=== PATIENT | male | born 1980 | race Caucasian/White ===

== ENCOUNTER → 2016-08-19 | Outpatient (CLI) | payer MEDICAID ==
[~2016-08-19] MED LIST: ACET1TAB12; ACHYD1T PO; ALBU8.5H2 IH; ALPR.25T PO; ALPR.5T PO; ALPR1TAB2 PO; ALPR1TAB7 PO; AMIT10TA6 PO; AMIT25TA9 PO; CARB/LEVO PO; CEFP500T4 PO; CEPH500C PO; CLIN300C3; CLIN300C3 PO; CPR500T PO; DEXL60CA PO; DEXL60CA5 PO; DICL100G13 TOP; DICL100G18 TOP; DOXY100C2 PO; FLUT12AE4 IH; GABA-486 PO; GABA-488 PO; GBPN300C PO; HYDR-2890 PO; HYDR-34 PO; HYDR-3720 PO; IBP800T PO; IPRA4AER IH; LACT1CAP62 PO; LEVO500T69 PO; LEVO750T9 PO; LINE600T5 PO; LVF500T GT; METR500T PO; MPR22T TP; MTR500T PO; NAPR-243 PO; NF-CIPDEC OT; NF-CIPDEC PO; OMEP20CA12 PO; ONDA8TAB9 PO; ONDAN4ODT PO; OXC5T PO; OXYC-465 PO; OXYC1TAB PO; OXYC20TA63 PO; OXYC30TA76 PO; OXYC40TA46 PO; OXYC60TA7 PO; PANT40TA2 PO; PANT40TA3 PO; PHEN100T26 PO; PHEN200T27 PO; PRD10T PO; PRD20T PO; PRM25T PO; PROM25SU10 PR; RIZA5TAB15; SULF-222 PO; SULF1TAB35 PO; TEST75GE7 TOP; TEST75GE7 TP; TMSL.4C PO; TRM50T PO; VANC1PLA9 IV; ZLP10T; ZLP10T PO; ZLP5T PO; ZOLP10TA PO; ZOLP10TA5 PO; [UNRECOGNIZED DRUG - OTHER]
== END ==
LOC: LAB 10:11
PROVIDERS: ATTEND Nurse Practitioner
DX: K85.90 Acute pancreatitis without necrosis or infection, unspecified (principal)
CPT/HCPCS: 36415; 83690

== ENCOUNTER 2016-10-23 17:42 | Emergency (ER) | payer MEDICAID ==
[~2016-10-23] VITALS: Ht 182.9 cm; Wt 68.1 kg
[2016-10-23] MEDS ORDERED: NYST1000 PO (19:29)
[2016-10-23] MEDS ORDERED: CHLO473M MM (19:29)
--- NOTE | 2016-10-23 19:33 | ED EENT ---
History of Present Illness General Chief Complaint: Dental Problems/Pain Stated Complaint: TOOTH INFECTION Nursing Triage Note: STAFF REPORTS PT HAS DENTAL PAIN THAT HAS BEEN TREATED FOR A COUPLE OF WEEKS BY A DENTIST. HE REPORTEDLY HAD TAKEN CLINDAMYCIN X 2 WEEKS, AND HAS BEEN TAKING KEFLEX SINCE WEDNESDAY WITH NO IMPROVEMENT. PT HAS PAIN MEDICATION AT HOME, IS JUST CONCERNED THAT ABX IS NOT WORKING. PT IS AFEBRILE AT THIS TIME. Source: patient, caregiver History of Present Illness Time seen by provider: 18:52 Allergies and Home Medications Allergies Coded Allergies: Penicillins (Verified Allergy, Mild, 09/06/15) azithromycin (Verified Allergy, Mild, 06/05/09) quetiapine fumarate (Verified Allergy, Unknown, 09/06/15) Home Medications Albuterol/Ipratropium 4 Gm Aero, 1 PUFF IH QID PRN for SHORTNESS OF BREATH, ( Reported) Alprazolam 1 Mg Tablet, 1 MG PO TID, (Reported) Amitriptyline HCl 25 Mg Tablet, 50 MG PO HS, (Reported) TAKES 2 (25MG) TABLETS Dexlansoprazole 60 Mg mp, 60 MG PO HS, (Reported) Fluticasone/Salmeterol 12 Gm Hfa.aer.ad, 1 PUFF IH BID PRN for SHORTNESS OF BREATH, (Reported) Gabapentin 300 Mg Capsule, 300 MG PO QID, (Reported) Linezolid 600 Mg Tablet, 600 MG PO Q12H, #20 Prescribed by: CINTHIA HOLLIS on 02/26/16 0914 Oxycodone HCl 60 Mg Tab.er.12h, 60 MG PO Q12H, (Reported) Oxycodone HCl/Acetaminophen 1 Each Tablet, 1 TAB PO TID PRN for BREAKTHROUGH PAIN, (Reported) Testosterone 75 Gm Gel.care manager, 4 APPLIC TOP DAILY, (Reported) 4 pumps Vancomycin/0.9 % Sod Chloride 1 Gm/250 Ml Plast..bag, 1 GM IV Q12H for 10 Days Prescribed by: CINTHIA HOLLIS on 02/27/16 1053 Zolpidem Tartrate 10 Mg Tablet, 10 MG PO HS, (Reported) Past Wwzvbaz-Nijnfb-Aseofn Hx Patient Social History Alcohol Use: Denies Use Recreational Drug Use: No Smoking Status: Never a Smoker Former Smoker/When Quit: Aug 16, 2011 2nd Hand Smoke Exposure: No Recent Foreign Travel: No Contact w/Someone Who Travel: No Recent Infectious Disease Expo: No Recent Hopitalizations: No Immunizations Up To Date Tetanus Booster (TDap): Unknown PED Vaccines UTD: Yes Date of Pneumonia Vaccine: May 17, 2009 Date of Influenza Vaccine: Jul 11, 2014 Seasonal Allergies Seasonal Allergies: No Surgeries HX Surgeries: Yes (EGD WITH DILATION, PEG TUBE, FROZEN SHOULDER) Surgeries: Abdominal, Orthopedic Respiratory Hx Respiratory Disorders: Yes (BRONCHITIS/PNEUMONIA) Respiratory Disorders: Pneumonia Cardiovascular Hx Cardiac Disorders: No Neurological Hx Neurological Disorders: Yes (TARDIVE DYSKINESIA. UNDIAGNOSED NEUROLOGICAL PROBLEM--SEEN BY [facility]) Reproductive System Hx Reproductive Disorders: No Sexually Transmitted Disease: No Genitourinary Hx Genitourinary Disorders: Yes Genitourinary Disorders: Kidney Stones Gastrointestinal Hx Gastrointestinal Disorders: Yes (ESOPHAGEAL STRICTURES-S/P DILATIONS, PEG TUGE LAST Wednesday09/06/15 ) Gastrointestinal Disorders: Gastroesophageal Reflux, Hiatal Hernia Musculoskeletal Hx Musculoskeletal Disorders: Yes (RIGHT SHOULDER FROZEN; CHRONIC PAIN ) Musculoskeletal Disorders: Degenerate Disk Disease, Chronic Back Pain Endocrine Hx Endocrine Disorders: No HEENT HX ENT Disorders: No Cancer Hx Cancer: No Psychosocial Hx Psychiatric Problems: Yes Behavioral Health Disorders: Depression Integumentary HX Skin/Integumentary Disorder: No Blood Transfusions Hx Blood Disorders: No Family Medical History Significant Family History: No Pertinent Family Hx Family Medial History: Dysphagia 19 MOTHER Family history: Arthritis 19 MOTHER Family history: Diabetes mellitus 19 FATHER Family history: Thyroid disorder 19 MOTHER Physical Exam Vital Signs Vital Sign - Last 12Hours 10/23/16 19:15 Temp 98.4 Pulse 110 Resp 20 B/P (MAP) 94/82 Pulse Ox 96 O2 Delivery Room Air Date of ETT Placement: Feb 22, 2016 Time of ETT Placement: 52 Progress/Results/Core Measures Results/Orders Vital Signs/I&O Vital Sign - Last 12Hours 10/23/16 19:15 Temp 98.4 Pulse 110 Resp 20 B/P (MAP) 94/82 Pulse Ox 96 O2 Delivery Room Air Blood Pressure Mean: 86 Departure Impression Impression: Primary Impression: Thrush Additional Impressions: Dental decay Gingivitis Disposition: 01 HOME, SELF-CARE Condition: Stable Departure-Patient Inst. Decision time for Depature: 19:25 Referrals: LADARIUS MELGOZA MD (PCP/Family) Primary Care Physician PHYLLIS PATTERSON DDSonny Patient Instructions: Dental Pain (DC), Thrush Add. Discharge Instructions: Follow-up with a dentist or oral surgeon as soon as possible for extraction. Until then continue with antibiotics. As long as you are on antibiotics, continue with nystatin swish and swallow. Follow the oral care routine as outlined below. 1. [place] teeth gently twice daily with a soft bristle toothbrush. 2. After brushing teeth, place a small quantity of chlorhexidine mouthwash on the toothbrush or in the mouth and work around the teeth for further antiseptic cleansing. You may also switch the chlorhexidine around the mouth. Spit and rinse after using the chlorhexidine mouthwash. 3. Swish nystatin around the mouth for 30-60 seconds, then swallow. If you cannot swish thoroughly, you may use a toothbrush to paint the teeth, tongue, and cheeks with the nystatin. Follow this routine twice daily. Give 2 additional doses of the nystatin between brushings for a total of 4 nystatin doses each day. Return to care if symptoms worsen. All discharge instructions reviewed with patient and/or family. Voiced understanding. Scripts Chlorhexidine Gluconate (Chlorhexidine Gluconate) 473 Ml Mouthwash 5 ML MM BID, #1 EA Prov: WARREN ARCOS MD 10/23/16 Nystatin (Nystatin) 100,000 Unit/1 Ml Oral.susp 5 ML PO QID, #200 ML 2 Refills Prov: WARREN ARCOS MD 10/23/16 WARREN ARCOS MD Oct 23, 2016 19:33
[2016-10-23 19:44] VITALS: BP 94/82
== END 2016-10-23 19:44 | disposition home or self-care (01) ==
LOC: EDUNIT# 17:42 → ER 17:47
DX: B37.9 Candidiasis, unspecified (principal); K02.9 Dental caries, unspecified; K05.10 Chronic gingivitis, plaque induced
CPT/HCPCS: 99282

== ENCOUNTER 2016-12-15 11:29 | Outpatient (RCR) | payer MEDICAID ==
[~2016-12-15 11:29] MED LIST changes: +CHLO473M MM; +NYST1000 PO
== END 2016-12-16 | disposition home or self-care (01) ==
PROVIDERS: ATTEND Family Medicine
DX: R47.02 Dysphasia (principal); R47.1 Dysarthria and anarthria; G81.91 Hemiplegia, unspecified affecting right dominant side

== ENCOUNTER 2017-01-17 20:29 | Emergency (ER) | payer MEDICAID ==
[~2017-01-17] VITALS: Ht 182.9 cm; Wt 68.1 kg
[2017-01-17] MEDS ORDERED: KETOROLAC 30 MG/ML VIAL IVP ONE (21:15)
[2017-01-17] MEDS ORDERED: LACTATED RINGERS 1,000 ML IV ONE (21:15)
--- NOTE | 2017-01-17 21:18 | ED Abdominal Pain ---
General Chief Complaint: Abdominal/GI Problems Stated Complaint: R SIDE PAIN Nursing Triage Note: to ER with caregiver with reports of abdominal pain. Caregiver reports history of pancreas problems and is s/p cholecystectomy. Sepsis Screen: No Definite Risk Source of Information: Caregiver Exam Limitations: Other (PT IS ESSENTIALLY NON-VERBAL) History of Present Illness Time Seen By Provider: 21:00 Initial Comments PT ARRIVES VIA POV WITH FURNITURE MOVER ( PT HAS 21 HOURS/DAY FURNITURE MOVER, BUT THIS FURNITURE MOVER HAS ONLY BEEN WITH HIM SINCE AUGUST OR SEPTEMBER OF THIS YEAR) PT HAS HAD RIGHT SIDED ABDOMINAL PAIN ALL WEEK HAD SUBJECTIVE FEVER ON Wednesday01/13/17 HAS NOT BEEN EATING OR DRINKING HAS HAD DECREASED URINE OUTPUT AND URINE HAS BEEN VERY DARK NO VOMITING OR DIARRHEA LAST BM A FEW DAYS AGO. HAS NOT HAD ANY MEDICATION FOR CONSTIPATION AND TAKES NARCOTICS DAILY. HAS BEEN SLEEPING ALL THE TIME, ALL WEEK NO KNOWN SICK CONTACTS HAD OPEN CHOLECYSTECTOMY EARLIER IN THE YEAR IN [place] AND HAD PANCREATITIS WITH IT. PCP: MEEK LANIER Allergies and Home Medications Allergies Coded Allergies: Penicillins (Verified Allergy, Mild, 09/06/15) azithromycin (Verified Allergy, Mild, 06/05/09) quetiapine fumarate (Verified Allergy, Unknown, 09/06/15) Home Medications Alprazolam 1 Mg Tablet, 1 MG PO QID, (Reported) Amitriptyline HCl 25 Mg Tablet, 25 MG PO BID, (Reported) Dexlansoprazole 60 Mg Cap.mp, 60 MG PO HS, (Reported) Duloxetine HCl 60 Mg Capsule., 60 MG PO DAILY, (Reported) Fluticasone/Salmeterol 12 Gm Hfa.aer.ad, 1 PUFF IH BID PRN for SHORTNESS OF BREATH, (Reported) Gabapentin 300 Mg Capsule, 300 MG PO QID, (Reported) Oxycodone HCl 60 Mg Tab.er.12h, 60 MG PO Q12H, (Reported) Oxycodone HCl/Acetaminophen 1 Each Tablet, 1 TAB PO TID PRN for BREAKTHROUGH PAIN, (Reported) Pantoprazole Sodium 40 Mg Tablet., 40 MG PO DAILY, (Reported) Review of Systems Constitutional: see HPI, fever, malaise, other (VERY LIMITED ) Respiratory: Cough (CHRONIC/STABLE COUGH) Cardiovascular: No Symptoms Reported Gastrointestinal: See HPI, Abdominal Pain, Denies Diarrhea, Poor Appetite, Poor Fluid Intake, Denies Vomiting Genitourinary: See HPI Past Qxodprg-Cnwiji-Rwqoik Hx Patient Social History Alcohol Use: Denies Use Recreational Drug Use: No Smoking Status: Never a Smoker 2nd Hand Smoke Exposure: No Recent Foreign Travel: No Contact w/Someone Who Travel: No Recent Infectious Disease Expo: No Recent Hopitalizations: No Physical Abuse: No Sexual Abuse: No Mistreated: No Fear: No Immunizations Up To Date Tetanus Booster (TDap): Unknown PED Vaccines UTD: Yes Date of Pneumonia Vaccine: May 17, 2009 Date of Influenza Vaccine: Jul 11, 2014 Seasonal Allergies Seasonal Allergies: No Surgeries History of Surgeries: Yes (EGD WITH DILATION, PEG TUBE/ REMOVED, FROZEN SHOULDER; KIDNEY STONE REMOVAL) Surgeries: Abdominal, Gallbladder, Orthopedic, Renal Respiratory History of Respiratory Disorde: Yes (BRONCHITIS/PNEUMONIA; CHRONIC COUGH) Respiratory Disorders: Pneumonia Currently Using CPAP: No Currently Using BIPAP: No Cardiovascular History of Cardiac Disorders: No Neurological History of Neurological Disord: Yes (TARDIVE DYSKINESIA. UNDIAGNOSED PROGRESSIVE/DEGENERATIVE NEUROLOGICAL PROBLEM--SEEN BY NEUROLOGY, MULTIPLE OTHER NEUROLOGISTS, BUT HAS NOT BEEN FOLLOWED BY NEUROLOGY FOR YEARS. NON- VERBAL AND NON-AMBULATORY. ) Reproductive System Hx Reproductive Disorders: No Sexually Transmitted Disease: No Genitourinary History of Genitourinary Disor: Yes Genitourinary Disorders: Kidney Stones Gastrointestinal History of Gastrointestinal Di: Yes (ESOPHAGEAL STRICTURES-S/P DILATIONS, PEG TUGE 09/06/15--NOW REMOVED OF 01/17/17 ) Gastrointestinal Disorders: Gastroesophageal Reflux, Hiatal Hernia, Gall Bladder Disease Musculoskeletal History of Musculoskeletal Dis: Yes (RIGHT SHOULDER FROZEN; CHRONIC PAIN ) Musculoskeletal Disorders: Degenerate Disk Disease, Chronic Back Pain Endocrine History of Endocrine Disorders: No HEENT History of HEENT Disorders: Yes (POOR DENTITION) Cancer History of Cancer: No Psychosocial History of Psychiatric Problem: Yes Behavioral Health Disorders: Depression Suicide Risk Score: 0 Integumentary History of Skin or Integumenta: No Blood Transfusions History of Blood Disorders: No Family Medical History Family Medial History: Dysphagia 19 MOTHER Family history: Arthritis 19 MOTHER Family history: Diabetes mellitus 19 FATHER Family history: Thyroid disorder 19 MOTHER Physical Exam Vital Signs VS - Last 72 Hours, by Label 01/17/17 01/17/17 01/17/17 20:40 21:35 23:20 Temp 98.3 98.3 98.3 Pulse 94 81 Resp 18 18 B/P (MAP) 126/92 Pulse Ox 98 99 O2 Delivery Room Air Capillary Refill : Less Than 3 Seconds General Appearance: no apparent distress, thin, other (OCCASIONAL DRY, UPPER AIRWAY COUGH; SITTING PARTIALLY UPRIGHT WITH KNEES AND HIPS FLEXED AND RIGHT HAND ON RIGHT ABDOMEN. NO FACIAL EXPRESSION, BUT DOES TRACK WITH EYES, ALTHOUGH SLOWLY. ) HEENT: other (VERY POOR DENTITION, EXTENSIVE DECAY AND MULTIPLE MISSING TEETH) Respiratory: normal breath sounds, no respiratory distress, no accessory muscle use Cardiovascular: regular rate, rhythm, no murmur Gastrointestinal: soft, tenderness (DIFFUSE RIGHT SIDED TENDERNESS. ) Extremities: no pedal edema Back: no CVA tenderness Neurologic/Psychiatric: other (FINE TREMOR OF ARMS / HANDS AND LEGS/ FEET-- GREATER ON RIGHT. CONTRACTURE OF RIGHT HAND. NEURO AT BASELINE--PT IS NON-VERBAL , UNABLE TO FOLLOW COMMANDS. BUT HAS GROSS MOVEMENT OF ALL EXTREMITIES. ) Skin: normal color, warm/dry, tattoos/piercings (MULTIPLE TATTOOS) Focused Exam Evaluation Lactate Level Laboratory Tests 01/17/17 21:20: Lactic Acid Level 0.67 Lactic Acid Level Laboratory Tests Test 01/17/17 21:20 Lactic Acid Level 0.67 MMOL/L (0.50-2.00) Date of ETT Placement: Feb 22, 2016 Time of ETT Placement: 52 Progress/Results/Core Measures Results/Orders Lab Results Laboratory Tests Test 01/17/17 21:20 01/17/17 21:38 Range/Units White Blood Count 5.8 4.3-11.0 10^3/uL Red Blood Count 4.88 4.35-5.85 10^6/uL Hemoglobin 13.8 13.3-17.7 G/DL Hematocrit 42 40-54 % Mean Corpuscular Volume 86 80-99 FL Mean Corpuscular Hemoglobin 28 25-34 PG Mean Corpuscular Hemoglobin Concent 33 32-36 G/DL Red Cell Distribution Width 14.9 H 10.0-14.5 % Platelet Count 285 130-400 10^3/uL Mean Platelet Volume 10.0 7.4-10.4 FL Neutrophils (%) (Auto) 62 42-75 % Lymphocytes (%) (Auto) 24 12-44 % Monocytes (%) (Auto) 8 0-12 % Eosinophils (%) (Auto) 6 0-10 % Basophils (%) (Auto) 1 0-10 % Neutrophils # (Auto) 3.6 1.8-7.8 X 10^3 Lymphocytes # (Auto) 1.4 1.0-4.0 X 10^3 Monocytes # (Auto) 0.5 0.0-1.0 X 10^3 Eosinophils # (Auto) 0.3 0.0-0.3 10^3/uL Basophils # (Auto) 0.1 0.0-0.1 10^3/uL Prothrombin Time 13.6 12.2-14.7 SEC INR Comment 1.0 0.8-1.4 Activated Partial Thromboplast Time 30 24-35 SEC Sodium Level 138 135-145 MMOL/L Potassium Level 4.1 3.6-5.0 MMOL/L Chloride Level 104 98-107 MMOL/L Carbon Dioxide Level 24 21-32 MMOL/L Anion Gap 10 5-14 MMOL/L Blood Urea Nitrogen 8 7-18 MG/DL Creatinine 0.82 0.60-1.30 MG/DL Estimat Glomerular Filtration Rate > 60 BUN/Creatinine Ratio 10 Glucose Level 75 70-105 MG/DL Lactic Acid Level 0.67 0.50-2.00 MMOL/L Calcium Level 9.2 8.5-10.1 MG/DL Magnesium Level 2.2 1.8-2.4 MG/DL Total Bilirubin 1.1 H 0.1-1.0 MG/DL Aspartate Amino Transf (AST/SGOT) 25 5-34 U/L Alanine Aminotransferase (ALT/SGPT) 17 0-55 U/L Alkaline Phosphatase 74 40-136 U/L Total Protein 8.4 H 6.4-8.2 GM/DL Albumin 4.0 3.2-4.5 GM/DL Amylase Level 31 25-125 U/L Lipase 31 8-78 U/L Urine Color YELLOW Urine Clarity CLEAR Urine pH 7 5-9 Urine Specific [place] 1.005 L 1.016-1.022 Urine Protein NEGATIVE NEGATIVE Urine Glucose (UA) NEGATIVE NEGATIVE Urine Ketones NEGATIVE NEGATIVE Urine Nitrite NEGATIVE NEGATIVE Urine Bilirubin NEGATIVE NEGATIVE Urine Urobilinogen 1 NORMAL MG/DL Urine Leukocyte Esterase NEGATIVE NEGATIVE Urine RBC (Auto) NEGATIVE NEGATIVE Urine RBC NONE /HPF Urine WBC NONE /HPF Urine Crystals NONE /LPF Urine Bacteria NONE /HPF Urine Casts NONE /LPF Urine Mucus TRACE /LPF Urine Culture Indicated NO My Orders Orders - JADA RIVERA DO Saline Lock/Iv-Start (01/17/17 21:15) Ct Abd/Pelv W (Appendicitis) (01/17/17 21:15) Amylase (01/17/17 21:15) Cbc With Automated Diff (01/17/17 21:15) Comprehensive Metabolic Panel (01/17/17 21:15) Lactic Acid Analyzer (01/17/17 21:15) Magnesium (01/17/17 21:15) Protime With Inr (01/17/17 21:15) Partial Thromboplastin Time (01/17/17 21:15) Ua Culture If Indicated (01/17/17 21:15) Blood Culture (01/17/17 21:15) Saline Lock/Iv-Start (01/17/17 21:15) Lactated Ringers (Lr 1000 Ml Iv Solution (01/17/17 21:15) Ketorolac Injection (Toradol Injection) (01/17/17 21:15) Iohexol Injection (Omnipaque 350 Mg/Ml 1 (01/17/17 22:15) Ns (Ivpb) (Sodium Chloride 0.9% Ivpb Bag (01/17/17 22:15) Lipase (01/17/17 22:16) Medications Given in ED Current Medications Medications Dose Ordered Sig/Carter Route Start Time Stop Time Status Last Admin Dose Admin Iohexol 100 ml ONCE ONCE IV 01/17/17 22:15 01/17/17 22:16 DC 01/17/17 22:11 100 ML Ketorolac Tromethamine 30 mg ONCE ONCE IVP 01/17/17 21:15 01/17/17 21:17 DC 01/17/17 21:35 30 MG Lactated Ringer's 1,000 ml @ 0 mls/hr Q0M ONCE IV 01/17/17 21:15 01/17/17 21:17 DC 01/17/17 21:35 0 MLS/HR Sodium Chloride 100 ml ONCE ONCE IV 01/17/17 22:15 01/17/17 22:16 DC 01/17/17 22:12 80 ML Vital Signs/I&O Vital Sign - Last 12Hours 01/17/17 01/17/17 01/17/17 20:40 21:35 23:20 Temp 98.3 98.3 98.3 Pulse 94 81 Resp 18 18 B/P (MAP) 126/92 Pulse Ox 98 99 O2 Delivery Room Air Blood Pressure Mean: 103 Progress Note : Progress Note UNEVENTFUL ER STAY Diagnostic Imaging Comments CT ABDOMEN/PELVIS--ILL-DEFINED, PATCHY, GROUNDGLASS OPACITIES IN LLL--NON- SPECIFIC BUT MAY BE INFLAMMATORY OR INFECTIOUS. 5MM NODULES IN LLL AND RML. NO ACUTE PROCESS, MODERATE STOOL IN COLON/CONSTIPATION--PER STAT RAD VIA FAX @ [id number] Reviewed: Reviewed by Me Departure Impression Impression: Primary Impression: Constipation Additional Impressions: Right sided abdominal pain Lung nodule < 6cm on CT Multiple lung nodules Disposition: HOME, SELF-CARE Condition: Stable Departure-Patient Inst. Referrals: LADARIUS MELGOZA MD (PCP) Primary Care Physician Patient Instructions: Acute Abdomen (Belly Pain), Adult (DC), CT Scan, Chest, Constipation, Adult (DC), Single Pulmonary Nodule Add. Discharge Instructions: TAKE MIRALAX EVERY 2 HOURS UNTIL YOU HAVE A BM THEN TAKE ONCE DAILY EVERY DAY CONTINUE YOUR REGULAR MEDICATIONS PRESCRIBED INCREASE YOUR WATER INTAKE FOLLOW UP WITH DR. MELGOZA ON WEDNESDAY IF NO BETTER RETURN TO ER IF WORSE FOLLOW UP WITH DR. MELGOZA NEXT WEEK FOR RECHECK /FOLLOW UP ON LUNG NODULES. All discharge instructions reviewed with patient and/or family. Voiced understanding. JADA RIVERA DO Jan 17, 2017 21:18
[2017-01-17 21:40] LABS: BASOPHILS # (AUTO) 0.1 10^3/uL (0.0-0.1); BASOPHILS % (AUTO) 1 % (0-10); EOSINOPHILS # (AUTO) 0.3 10^3/uL (0.0-0.3); EOSINOPHILS % (AUTO) 6 % (0-10); LYMPHOCYTES # (AUTO) 1.4 X 10^3 (1.0-4.0); LYMPHOCYTES % (AUTO) 24 % (12-44); MEAN CORPUSCULAR HEMOGLOBIN 28 PG (25-34); MEAN CORPUSCULAR HGB CONC 33 G/DL (32-36); MEAN CORPUSCULAR VOLUME 86 FL (80-99); MONOCYTES # (AUTO) 0.5 X 10^3 (0.0-1.0); MONOCYTES % (AUTO) 8 % (0-12); NEUTROPHILS # (AUTO) 3.6 X 10^3 (1.8-7.8); NEUTROPHILS % (AUTO) 62 % (42-75); PLATELET COUNT 285 10^3/uL (130-400); RED BLOOD COUNT 4.88 10^6/uL (4.35-5.85); RED CELL DISTRIBUTION WIDTH 14.9 % (10.0-14.5); WHITE BLOOD COUNT 5.8 10^3/uL (4.3-11.0)
[2017-01-17 21:45] LABS: BILIRUBIN,URINE NEGATIVE (NEGATIVE); KETONES,URINE NEGATIVE (NEGATIVE); LEUKOCYTE ESTERASE ,URINE NEGATIVE (NEGATIVE); NITRITE,URINE NEGATIVE (NEGATIVE); PH,URINE 7 (5-9); PROTEIN,URINE NEGATIVE (NEGATIVE); UROBILINOGEN,URINE 1 MG/DL (NORMAL)
[2017-01-17] MEDS ORDERED: AMIT25TA9 PO (21:48)
[2017-01-17] MEDS ORDERED: PANT40TA3 PO (21:48)
[2017-01-17] MEDS ORDERED: ALPR1TAB7 PO (21:48)
[2017-01-17] MEDS ORDERED: DULO60CA58 PO (21:48)
[2017-01-17 21:49] LABS: PROTHROMBIN TIME PATIENT 13.6 SEC (12.2-14.7)
[2017-01-17 22:15] LABS: ALANINE AMINOTRANSFERASE 17 U/L (0-55); AMYLASE 31 U/L (25-125); ANION GAP 10 MMOL/L (5-14); ASPARTATE AMINO TRANSFERASE 25 U/L (5-34); BILIRUBIN,TOTAL 1.1 MG/DL (0.1-1.0); BLOOD UREA NITROGEN 8 MG/DL (7-18); BUN/CREATININE RATIO 10; CALCIUM 9.2 MG/DL (8.5-10.1); CARBON DIOXIDE 24 MMOL/L (21-32); CHLORIDE 104 MMOL/L (98-107); CREATININE SERUM 0.82 MG/DL (0.60-1.30); GFR ESTIMATED > 60; GLUCOSE 75 MG/DL (70-105); MAGNESIUM 2.2 MG/DL (1.8-2.4); POTASSIUM 4.1 MMOL/L (3.6-5.0); SODIUM 138 MMOL/L (135-145); TOTAL PROTEIN 8.4 GM/DL (6.4-8.2)
[2017-01-17] MEDS ORDERED: IOHEXOL 350 MG/ML 100 ML (OMNIPAQUE 350) VIAL IV ONE (22:15)
[2017-01-17] MEDS ORDERED: NS 100 ML (IVPB) BAG IV ONE (22:15)
[2017-01-17] MEDS ORDERED: LIDOCAINE 2% VISCOUS 15 ML UDC MM ONE (23:15)
[2017-01-17 23:20] VITALS: BP 122/76
--- NOTE | 2017-01-18 06:33 | Diagnostic Imaging Report ---
PROCEDURE: CT abdomen and pelvis with contrast, rule out appendicitis. TECHNIQUE: Multiple contiguous axial images were obtained through the abdomen and pelvis after the administration of intravenous contrast. INDICATION: Pain. COMPARISON: 09/08/2015. FINDINGS: Interstitial opacities as well as some groundglass disease in the left lower lobe redemonstrated but improved from the prior. Few stable subcentimeter subpleural micronodules noted. No dominant or suspicious lower lobe mass. Kidneys are unobstructed, the liver, spleen, adrenals and pancreas negative. There is no biliary dilatation. While the appendix cannot be definitively identified, there is no right lower quadrant or pericecal inflammation to suggest underlying appendicitis. There is no diverticulitis. There is no bowel obstruction, although mild constipation is suggested by the colonic fecal load. No focal inflammatory process. No aneurysm, adenopathy or mass. IMPRESSION: Improvements in left lower lobe interstitial and groundglass opacity, no abdominal pelvic obstructive features, inflammatory process or acute abnormalities are identified. Borderline features of mild constipation without impaction or obstruction. Dictated by: Dictated on workstation # [id number]
[2017-01-18] MEDS ORDERED: SILVER SULFADIAZINE 50 GM CREAM TOP SCH (09:00)
== END 2017-01-17 23:20 | disposition home or self-care (01) ==
LOC: EDUNIT# 20:29 → ER 20:32
DX: K59.00 Constipation, unspecified (principal); R91.8 Other nonspecific abnormal finding of lung field; K21.9 Gastro-esophageal reflux disease without esophagitis; F32.9 Major depressive disorder, single episode, unspecified; Z87.09 Personal history of other diseases of the respiratory system; Z90.49 Acquired absence of other specified parts of digestive tract; Z87.19 Personal history of other diseases of the digestive system; Z87.442 Personal history of urinary calculi
CPT/HCPCS: 36415; 74177; 80053; 81000; 82150; 83605; 83690; 83735; 85025; 85610; 85730; 87040; 96361; 96374

== ENCOUNTER 2017-02-10 11:00 | Outpatient (RCR) | payer MEDICAID ==
[~2017-02-10 11:00] MED LIST changes: +DULO60CA58 PO
== END 2017-02-10 14:36 | disposition home or self-care (01) ==
PROVIDERS: ATTEND Family Medicine
DX: R47.02 Dysphasia (principal); R47.1 Dysarthria and anarthria; G81.91 Hemiplegia, unspecified affecting right dominant side

== ENCOUNTER → 2017-04-27 | Outpatient (CLI) | payer MEDICAID ==
--- NOTE | 2017-04-27 09:47 | Diagnostic Imaging Report ---
CLINICAL INDICATION: The patient's caregiver states the patient is having a lot of spine pain, mainly in mid spine. The patient has no injuries but is confined to a wheelchair and is handicapped. EXAM: An MRI of the thoracic spine was performed without IV contrast. Sequences include sagittal T1, sagittal T2, sagittal T2 fat-sat, and axial T2. COMPARISON: None. FINDINGS: There are multiple patchy areas of low T1/slightly high T2 signal areas scattered throughout the thoracic and visualized portions of the cervical spine. The thoracic spine has normal alignment with no fracture or dislocation. There is no abnormal paraspinal soft tissue signal or abnormality. The thoracic spinal cord has a normal anatomic appearance with no abnormal cord signal. There are chronic appearing Schmorl's nodes involving the lower thoracic spine region. There is mild facet arthropathy involving the upper thoracic spine with mild bilateral neuroforaminal narrowing involving multiple areas of the upper thoracic spine. There is no significant disc bulge or herniation. There is no significant central canal narrowing. There is mild to moderate loss of height involving the mid to lower thoracic spine. IMPRESSION: 1. There are nonspecific multiple patchy and focal areas of low T1 and slightly high T2 signal lesions throughout the thoracic spine and visualized cervical spine. Metastatic disease should be excluded. Clinical correlation for history of cancer is suggested. A Nuclear Medicine whole-body bone scan is suggested for further evaluation. 2. There is no fracture or dislocation. 3. Mild thoracic spine degenerative disease. 4. The report was called Dr. Lala Tavarez by JANET@ 9:46 AM. Dictated by: Dictated on workstation # [id number]
--- NOTE | 2017-04-27 11:18 | Diagnostic Imaging Report ---
PROCEDURE: MRI lumbar spine. TECHNIQUE: Multiplanar, multisequence MRI of the lumbar spine was performed without contrast. INDICATION: Back pain. FINDINGS: The alignment of the posterior spinal line is satisfactory. The vertebral body heights are preserved. Disc heights are also preserved. There is mild disc desiccation at the lower lumbar spine levels. The cauda equina and conus medullaris appear grossly unremarkable. T12/L1: There is no disc herniation, no spinal canal or foraminal stenosis. L1/2: There is no disc herniation, there is mild facet hypertrophy. No central canal or lateral recess stenosis. No foraminal narrowing. L2/3: There is no disc herniation. There is mild facet hypertrophy. No central canal or lateral recess stenosis. L3/4: There is a minimal diffuse disc bulge and mild to moderate facet hypertrophy seen bilaterally. No central canal stenosis. There is bilateral mild lateral recess stenosis. The foramina demonstrate minimal stenosis. L4/5: There is disc bulge asymmetric to the right side and mild to moderate facet hypertrophy. There is central canal stenosis reducing the AP dimension of the spinal canal to 6.6 mm and bilateral lateral recess stenosis of moderate to severe degree, worse on the right encroaching upon the descending bilateral L5 nerve roots. The foramina demonstrate bilateral mild to moderate stenosis. L5/S1: There is a diffuse disc bulge asymmetric to the left and mild facet hypertrophy. No significant central canal stenosis. There is lateral recess stenosis of moderate to severe degree on the left side and mild degree on the right. On the left, there is displacement and minimal compression of the descending left nerve root. The foramina demonstrate mild stenosis bilaterally. IMPRESSION: Degenerative changes in the lower lumbar spine with high-grade lateral recess stenosis bilaterally at L4/5 and on the left side at L5/S1 level. Dictated by: Dictated on workstation # [id number]
== END ==
LOC: RAD 07:50
PROVIDERS: ATTEND Family Medicine
DX: M48.061 Spinal stenosis, lumbar region without neurogenic claudication (principal); M47.816 Spondylosis without myelopathy or radiculopathy, lumbar region; M47.814 Spondylosis without myelopathy or radiculopathy, thoracic region; G95.9 Disease of spinal cord, unspecified
CPT/HCPCS: 72146; 72148

== ENCOUNTER 2017-05-25 08:59 | Outpatient (CLI) | payer SELFPAY ==
[~2017-05-25] VITALS: Ht 182.9 cm; Wt 77.1 kg
[2017-05-25] MEDS ORDERED: ALBU2.5V4 IH (09:35)
[2017-05-25] MEDS ORDERED: DEXL60CA PO (09:35)
== END 2017-05-25 09:37 ==
LOC: PREOP 08:59
PROVIDERS: ATTEND Surgery
DX: Z01.818 Encounter for other preprocedural examination (principal); R13.10 Dysphagia, unspecified

== ENCOUNTER 2017-05-26 11:10 | Day surgery (SDC) | payer MEDICAID ==
[~2017-05-26] VITALS: Ht 182.9 cm; Wt 77.1 kg
[~2017-05-26 11:10] MED LIST changes: +ALBU2.5V4 IH
[2017-05-26] MEDS ORDERED: NS IV 500 ML 500 ML IV PRN (11:20)
[2017-05-26] MEDS ORDERED: HURRICAINE EXT TUBE (BENZOCAINE) XX PRN (11:30)
--- NOTE | 2017-05-26 11:57 | Conscious Sedation/ASA ---
Conscious Sedation Pre-Proced Time Reviewed: 11:50 ASA Class: 3 Airway Mallampati Classification: ([place] appropriate class) I. II. III, IV Lungs Heart ASA score ASA 1: a normal healthy patient ASA 2: a patient with a mild systemic disease (mid diabetes, controlled hypertension, obesity ASA 3: a patient with a severe systemic disease that limits activity (angina , COPD, prior Myocardial infarction) ASA 4: a patient with an incapacitating disease that is a constant threat to life (CHF, renal failure) ASA 5: a moribund patient not expected to survive 24 hrs. (ruptured aneurysm) ASA 6: a declared brain patient whose organs are being harvested. For emergent operations, add the letter E after the classification Grade 2 Sedation Plan: Analgesia, Amnesia, Plan communicated to team members, Discussed options with patient/fam, Discussed risks with patient/fam Note The patient is an appropriate candidate to undergo the planned procedure, sedation, and anesthesia. The patient immediately re-assessed prior to indication. JANAK ALFONSO MD May 26, 2017 11:57 am
--- NOTE | 2017-05-26 11:57 | Progress Note-Pre Operative ---
Pre-Operative Progress Note H&P Reviewed The H&P was reviewed, patient examined and no changes noted. Date Seen by Provider: May 26, 2017 Time Seen by Provider: 11:50 Date H&P Reviewed: May 26, 2017 Time H&P Reviewed: 11:50 Pre-Operative Diagnosis: dysphagia, wt loss. JANAK ALFONSO MD May 26, 2017 11:57 am
[2017-05-26 11:58] VITALS: BP 110/72
[2017-05-26] MEDS ORDERED: ONDANSETRON 4 MG/2 ML (SDV) Z0FRAN IV PRN (12:00)
[2017-05-26] MEDS ORDERED: morphine INJ 10 MG/ML 1ML (SYR OR VIAL) IV PRN (12:00)
[2017-05-26] MEDS ORDERED: ACETAMINOPHEN 325 MG TABLET/CAPLET (TYLENOL) PO PRN (12:00)
[2017-05-26] MEDS ORDERED: HYDROcodone/APAP 5 MG/325 MG (LORTAB) TAB PO PRN (12:00)
[2017-05-26] MEDS ORDERED: fentaNYL INJECTION 100 MCG/2 ML AMP ONE ×2 (13:00→13:23)
[2017-05-26] MEDS ORDERED: MIDAZOLAM 2 MG/2 ML (VERSED) VIAL ONE ×3 (13:01)
[2017-05-26] MEDS ORDERED: HURRICAINE EXT TUBE (BENZOCAINE) ONE (13:01)
[2017-05-26] MEDS: fentaNYL INJECTION 100 MCG/2 ML AMP IVP PRN ×4 (13:15→13:25)
[2017-05-26] MEDS: MIDAZOLAM 2 MG/2 ML (VERSED) VIAL IVP PRN ×3 (13:16→13:23)
[2017-05-26] MEDS ORDERED: LIDOCAINE JELLY 2% (XYLOCAINE) 5 ML TUBE ONE (13:21)
[2017-05-26] MEDS ORDERED: LIDOCAINE JELLY 2% (XYLOCAINE) 5 ML TUBE TOP ONE (14:00)
--- NOTE | 2017-05-26 14:07 | Progress Note-Post Operative ---
Post-Operative Progess Note Surgeon (s)/Tree Shear Operator (s) Surgeon JANAK ALFONSO MD Tree Shear Operator: none Pre-Operative Diagnosis dysphagia, wt loss. Post-Operative Diagnosis reflux esophagitis(class B), mild distal esophageal stricture, moderate gastritis. Procedure & Operative Findings Date of Procedure 05/26/17 Procedure Performed/Findings EGD with bx and balloon dilatation. Anesthesia Type CS Estimated Blood Loss Estimated blood loss (mL): minimal Specimens/Packing Specimens Removed GE jxn, antrum JANAK ALFONSO MD May 26, 2017 2:07 pm
--- NOTE | 2017-05-26 14:11 | Discharge Inst-Surgical ---
D/C Lap Instructions-KIDO New, Converted, or Re-Newed RX: RX on Chart Follow Up PRN Activity as tolerated High Fiber Diet 25g or more per day Avoid Alcohol, Caffeine, Spicy [place] and Acid foods. Drink 64 fluid oz or more of fluids per day. Symptoms to Report: Fever over 101 degree F, Nausea/Vomiting If any problems/questions: Contact your physician or go to Emergency Room JANAK ALFONSO MD May 26, 2017 2:10 pm
[2017-05-26 14:25] VITALS: BP 116/56
--- NOTE | 2017-05-26 23:31 | OPERATIVE REPORT ---
DATE OF SERVICE: 05/26/2017 ATTENDING PRIMARY ELECTRICAL ENGINEERING INTERN: [facility]. PREOPERATIVE DIAGNOSES: Tardive dyskinesia, dysphagia, weight loss, history of esophageal stricture. POSTOPERATIVE DIAGNOSES: Reflux esophagitis class B with a mild distal esophageal stricture. No hiatal hernia, moderate gastritis. No distal obstructions. PROCEDURE: EGD with biopsy and dilatation. SURGEON: Janak Alfonso MD. ANESTHESIA: Conscious sedation. ESTIMATED BLOOD LOSS: Minimal. FINDINGS: Reflux esophagitis class B, mild distal esophageal stricture. No hiatal hernia, moderate severity gastritis. Pylorus and duodenum appeared normal with no distal obstructions. DISPOSITION: The patient tolerated the procedure well. INDICATIONS: The patient is a 36-year-old male known to us. He has a history of tardive dyskinesia and potential for other undiagnosed neurologic issues as well as Parkinson's disease. He has a history of a traumatic brain injury and tremors. We had seen him in the past for gastroesophageal reflux disease and dysphagia, and underwent EGDs and dilatations since 2010. He has had dysphagia in a recurrent manner. He has had a percutaneous gastrostomy tube placed; however, due to the wishes of the patient and family, this was removed. Since we have seen him before, he has gained a slight amount of weight. Family reports that he is having difficulty swallowing solids for the most part; however, liquids are okay. He is currently on Protonix and Dexon. DESCRIPTION OF PROCEDURE: The patient was brought to the endoscopy suite, laid in the left lateral decubitus position. After adequate IV pain and sedative medications and conscious sedation anesthesia, the mouthpiece was applied. The endoscope was placed in the mouth, visualizing the pharynx and hypopharyngeal region. Vocal cords, epiglottis and vallecula identified and appeared to be normal. The endoscope was then gently intubated in the esophageal opening esophagus insufflated. The endoscope was then advanced to the first, second and third portions of the esophagus. At the level of the GE junction, a reflux esophagitis class B identified. There was also a mild distal esophageal stricture. A biopsy was taken of the GE junction with forceps with visualization of good hemostasis. The endoscope was then advanced in the stomach. The endoscope retroflexed, visualized no significant hiatal hernia. There was moderate severity gastritis; however, no formal ulcers, polyps or any neoplasms identified. A biopsy was taken of the stomach antrum with forceps with visualization of good hemostasis. The endoscope was then advanced to the pylorus and the first and second portions of the duodenum, which appeared normal with no distal obstructions. The endoscope was then slowly withdrawn while taking a second look and suctioning of residual air with no additional findings. It was decided to then proceed with dilatation of the stricture. A CRE fixed guidewire balloon was then placed and the balloon was insufflated at 3 atmospheres of pressure or 18 mm in diameter with no resistance. We then proceeded to 4.5 atmospheres of pressure with mild resistance. We then proceeded to 6 atmospheres of pressure with mild to moderate resistance and left this in place for approximately 60 seconds. The balloon was then desufflated and removed. There were no mucosal tears as well as no bleeding identified. The endoscope was then slowly withdrawn while suctioning residual air with no additional findings. The patient tolerated the procedure well. We will recommend continued medical management with small and more frequent meals, avoidance of eating at night as well as sitting upright when eating meals. He also needs to proceed with a high protein, high calorie diet, which is relatively isotonic and no extremes of fats or carbohydrates as well as sugars. He also needs to continue taking smaller, more frequent meals as well as chew thoroughly and slowly, and continue his PPI, acid reducers. Job ID: [id number] DocumentID: [id number] Dictated Date: 05/26/2017 13:53:12 [place] Date: 05/26/2017 23:31:30 Dictated By: JANAK ALFONSO MD
--- OUTSIDE RECORDS SUMMARY | 2017-05-27 18:49 | XMS REPORT | Clinical Summary ---
Author Author [facility] Organization [facility] Address Unknown Phone Unavailable Care Team Providers Care Forest Resource Specialist Name Role Phone PCP Unavailable Source Comments Some departments are not documenting in the electronic medical record. If you do not see the information that you expected, contact Release of Information in the Health Information Management department at [phone] for further assistance in locating additional records.[facility] Allergies Active Allergy Reactions Severity Noted Date Comments Penicillin G EDEMA 02/11/2011 Quetiapine SEE COMMENTS 02/11/2011 Swallowing problems Azithromycin HIVES 02/11/2011 Current Medications Prescription Sig. Disp. Refills Start End Date Status Date HYDROcodone/acetaminophen Take 1 Tab by mouth every Active (+) (VICODIN) 10/325 mg 6 hours as needed. PO tablet amitriptyline (ELAVIL) 25 Take 25 mg by mouth at Active mg PO tablet bedtime daily. zolpidem (AMBIEN) 10 mg Take 10 mg by mouth at Active PO tablet bedtime as needed. ALPRAZolam (XANAX) 0.25 Take 0.25 mg by mouth at Active mg PO tablet bedtime as needed. 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 Neurological disorder 02/17/2011 Overview: Unknown neurological disorder with multiple deficits Dysarthria 02/17/2011 Family History Medical History Relation Name Comments Diabetes Father Migraines Mother Stroke Mother Relation Name Status Comments Father Mother Social History Tobacco Use Types Packs/Day Years Used Date Never Smoker Smokeless Tobacco: Never Used Alcohol Use Drinks/Week oz/Week Comments No Sex Assigned at Date Recorded Not on file Last Filed Vital Signs Vital Sign Reading Time Taken Blood Pressure 116/77 02/11/2011 8:26 AM CDT Pulse 73 02/11/2011 8:26 AM CDT Temperature - - Respiratory Rate - - Oxygen Saturation - - Inhaled Oxygen - - Concentration Weight 88.7 kg (195 lb 9.6 oz) 02/11/2011 8:26 AM CDT Height 198.1 cm (6' 6") 02/11/2011 8:26 AM CDT Body Mass Index 22.6 02/11/2011 8:26 AM CDT Plan of Treatment Health Maintenance Due Date Last Done Comments PHYSICAL (COMPREHENSIVE) 1989 EXAM PERTUSSIS VACCINE 1993 TETANUS VACCINE 10/11/1999 INFLUENZA VACCINE 12/15/2016 Results Not on filefrom Last 3 Months
--- OUTSIDE RECORDS SUMMARY | 2017-05-27 18:57 | XMS REPORT | Continuity of Care Document ---
Author Author [facility] Organization [facility] Address Unknown Phone Unavailable Allergies Active Description Code Type Severity Reaction Onset Reported/Identified Relationship to Patient Clinical Status Yes azithromycin [id number] Drug Allergy Mild N/A 09/06/2015 Yes Penicillins [id number] Drug Allergy Mild N/A 09/06/2015 Yes quetiapine fumarate [id number] Drug Allergy Unknown N/A 09/06/2015 Medications There is no data. Problems Date Dx Coded Attending Type Code Diagnosis Diagnosed By 04/15/1341 LADARIUS MELGOZA MD Ot K44.9 04/15/1341 LADARIUS MELGOZA MD Ot R13.10 04/15/1435 LADARIUS MELGOZA MD Ot G81.91 HEMIPLEGIA, UNSPECIFIED AFFECTING RIGHT 04/15/1435 LADARIUS MELGOZA MD Ot R47.02 DYSPHASIA 04/15/1435 LADARIUS MELGOZA MD Ot R47.1 DYSARTHRIA AND ANARTHRIA 12/19/2009 Ot 530.10 ESOPHAGITIS NOS 12/19/2009 Ot 530.3 ESOPHAGEAL STRICTURE 12/19/2009 Ot 935.1 FOREIGN BODY ESOPHAGUS 12/19/2009 Ot E000.8 OTHER EXTERNAL CAUSE STATUS 12/19/2009 Ot E849.0 ACCIDENT IN HOME 12/19/2009 Ot E915 FB ENTERING OTH ORIFICE 03/31/2011 Ot 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 06/02/2011 Ot 486 PNEUMONIA, ORGANISM NOS 06/02/2011 Ot 786.2 COUGH 06/05/2011 Ot 333.85 SUBACUTE DYSKINESIA DUE TO DRUGS 06/05/2011 Ot 338.29 OTHER CHRONIC PAIN 06/05/2011 Ot 486 PNEUMONIA, ORGANISM NOS 06/05/2011 Ot 530.3 ESOPHAGEAL STRICTURE 06/05/2011 Ot 781.0 ABN INVOLUN MOVEMENT NEC 06/05/2011 Ot 935.1 FOREIGN BODY ESOPHAGUS 06/05/2011 Ot E849.0 ACCIDENT IN HOME 06/05/2011 Ot E911 RESP OBSTR- FOOD INHAL 07/17/2011 Ot 530.3 ESOPHAGEAL STRICTURE 07/17/2011 Ot 935.1 FOREIGN BODY ESOPHAGUS 07/17/2011 Ot E000.8 OTHER EXTERNAL CAUSE STATUS 07/17/2011 Ot E849.0 ACCIDENT IN HOME 07/17/2011 Ot E915 FB ENTERING OTH ORIFICE 11/23/2011 Ot 719.41 JOINT PAIN- SHLDER 11/23/2011 Ot 728.87 MUSCLE WEAKNESS (GENERALIZED) 11/23/2011 Ot V57.1 PHYSICAL THERAPY NEC 03/30/2013 LETA SUTTON Ot 276.51 DEHYDRATION 03/30/2013 LETA SUTTON Ot 592.1 CALCULUS OF URETER 03/30/2013 LETA SUTTON Ot 787.03 VOMITING ALONE 03/30/2013 LETA SUTTON Ot 789.03 ABDOMINAL PAIN, RIGHT LOWER QUADRANT 03/31/2013 JADA RIVERA DO Ot 592.0 CALCULUS OF KIDNEY 03/31/2013 JADA RIVERA DO Ot 787.01 NAUSEA WITH VOMITING 04/05/2013 INOCENCIA JULES MD Ot 591 HYDRONEPHROSIS 04/05/2013 INOCENCIA JULES MD Ot 592.1 CALCULUS OF URETER 09/26/2013 STAS HARTLEY, PAULINE Li Ot 724.4 LUMBOSACRAL NEURITIS NOS 09/26/2013 PAULINE MCCLELLAND MD Ot 780.79 OTH MALAISE FATIGUE 11/08/2013 JANAK ALFONSO MD Ot 466.0 ACUTE BRONCHITIS 11/08/2013 JANAK ALFONSO MD Ot 530.11 REFLUX ESOPHAGITIS 11/08/2013 JANAK ALFONSO MD Ot 530.81 ESOPHAGEAL REFLUX 11/08/2013 JANAK ALFONSO MD Ot 535.50 UNSP GASTRITIS GASTRODUODENITIS W/O ME 11/08/2013 JANAK ALFONSO MD Ot 553.3 DIAPHRAGMATIC HERNIA 11/08/2013 JANAK ALFONSO MD Ot 724.5 BACKACHE NOS 11/08/2013 JANAK ALFONSO MD Ot 780.79 OTH MALAISE FATIGUE 11/08/2013 JANAK ALFONSO MD Ot 781.0 ABN INVOLUN MOVEMENT NEC 11/08/2013 JANAK ALFONSO MD Ot 782.0 SKIN SENSATION DISTURB 11/08/2013 JANAK ALFONSO MD Ot 784.3 APHASIA 11/08/2013 JANAK ALFONSO MD Ot 787.20 DYSPHAGIA, UNSPECIFIED 11/08/2013 JANAK ALFONSO MD Ot 907.0 LT EFF INTRACRANIAL INJ 11/08/2013 JANAK ALFONSO MD Ot E929.8 LATE EFF ACCIDENT NEC 11/14/2013 LADARIUS MELGOZA MD Ot 719.7 DIFFICULTY IN WALKING 11/14/2013 LADARIUS MELGOZA MD Ot 780.79 OTH MALAISE FATIGUE 11/14/2013 LADARIUS MELGOZA MD Ot V57.1 PHYSICAL THERAPY NEC 02/02/2014 JUAN JOSE BLAS APRN Ot 382.00 AC SUPP OTITIS MEDIA NOS 02/02/2014 JUAN JOSE BLAS [employer] Ot 388.70 OTALGIA NOS 02/21/2014 LADARIUS MELGOZA MD Ot 719.7 DIFFICULTY IN WALKING 02/21/2014 LADARIUS MELGOZA MD Ot 780.79 OTH MALAISE FATIGUE 02/21/2014 LADARIUS MELGOZA MD Ot V57.1 PHYSICAL THERAPY NEC 08/03/2014 RADHA GIMENEZ MD Ot 724.02 SPINAL STENOSIS, LUMBAR REG, W/OUT NEURO 08/03/2014 RADHA GIMENEZ MD Ot 781.99 NERV/MUSCULOSKEL SYS SYMP NEC 08/03/2014 RADHA GIMENEZ MD Ot 787.20 DYSPHAGIA, UNSPECIFIED 08/03/2014 RADHA GIMENEZ MD Ot 724.02 08/03/2014 RADHA GIMENEZ MD Ot 781.99 08/03/2014 RADHA GIMENEZ MD Ot 787.20 08/06/2014 RUFUS NI MD Ot 300.00 ANXIETY STATE NOS 08/06/2014 RAINE HARTLEY, RUFUS Simmons Ot 333.90 EXTRAPYRAMIDAL DIS NOS 08/06/2014 RAINE HARTLEY, RUFUS Simmons Ot 530.81 ESOPHAGEAL REFLUX 08/06/2014 RUFUS NI MD Ot 724.5 BACKACHE NOS 08/06/2014 RUFUS NI MD Ot 787.22 DYSPHAGIA, OROPHARYNGEAL PHASE 08/06/2014 RUFUS NI MD Ot V57.89 REHABILITATION PROC NEC 09/10/2014 BRENDAN BA DO Ot 008.8 VIRAL ENTERITIS NOS 09/10/2014 BRENDAN BA DO Ot 276.51 DEHYDRATION 09/10/2014 BRENDAN BA DO Ot 296.80 BIPOLAR DISORDER, UNSPECIFIED 09/10/2014 BRENDAN BA DO Ot 300.00 ANXIETY STATE NOS 09/10/2014 BRENDAN BA DO Ot 332.0 PARALYSIS AGITANS 09/10/2014 BRENDAN BA DO Ot 333.85 SUBACUTE DYSKINESIA DUE TO DRUGS 09/10/2014 BRENDAN BA DO Ot 345.90 EPILEPSY UNSPEC W/O MENTION INTRACTABLE 09/10/2014 BRENDAN BA DO Ot 530.81 ESOPHAGEAL REFLUX 09/10/2014 BRENDAN BA DO Ot 724.2 LUMBAGO 09/10/2014 BRENDAN BA DO Ot E939.3 ADV EFF ANTIPSYCHOTC NEC 11/29/2014 RADHA GIMENEZ MD Ot 724.02 11/29/2014 RADHA GIMENEZ MD Ot 781.99 11/29/2014 RADHA GIMENEZ MD Ot 787.20 12/18/2014 Ot 724.02 12/18/2014 LADARIUS MELGOZA MD Ot 781.0 12/18/2014 LETA SUTTON Ot 466.0 ACUTE BRONCHITIS 12/18/2014 LETA SUTTON Ot 780.60 FEVER, UNSPECIFIED 12/18/2014 LETA SUTTON Ot 786.05 SHORTNESS OF BREATH 12/18/2014 LETA SUTTON Ot 786.50 CHEST PAIN NOS 02/05/2015 LADARIUS MELGOZA MD Ot 780.79 02/05/2015 LADARIUS MELGOZA MD Ot V57.1 02/05/2015 LADARIUS MELGOZA MD Ot 553.3 02/05/2015 LADARIUS MELGOZA MD Ot 787.20 02/05/2015 LADARIUS MELGOZA MD, Ot V57.3 02/13/2015 LADARIUS MELGOZA MD Ot 553.3 DIAPHRAGMATIC HERNIA 02/13/2015 LADARIUS MELGOZA MD Ot 787.20 DYSPHAGIA, UNSPECIFIED 02/13/2015 LADARIUS MELGOZA MD Ot V57.3 CARE INVOLVING SPEECH-LANGUAGE THERAPY 02/13/2015 LADARIUS MELGOZA MD Ot 780.79 OTH MALAISE FATIGUE 02/13/2015 RHONA HARTLEY, LADARIUS K Ot V57.1 PHYSICAL THERAPY NEC 02/13/2015 RHONA HARTELY, LADARIUS Salvador Ot 780.79 02/13/2015 RHONA HARTLEY, LADARIUS K Ot V57.1 02/15/2015 RHONA HARTLEY, LADARIUS [place] Ot 553.3 02/15/2015 RHONA HARTLEY, LADARIUS Salvador Ot 787.20 02/15/2015 LADARIUS MELGOZA MD Ot V57.3 02/18/2015 RHONA HARTLEY, LADARIUS [place] Ot 780.79 02/18/2015 RHONA HARTLEY, LADARIUS K Ot V57.1 03/10/2015 RHONA HARTLEY, LADARIUS [place] Ot 553.3 03/10/2015 RHONA HARTLEY, LADARIUS Salvador Ot 787.20 03/10/2015 LADARIUS MELGOZA MD K Ot V57.3 03/10/2015 RHONA HARTLEY, LADARIUS K Ot R53.1 03/14/2015 RHONA HARTLEY, LADARIUS K Ot K44.9 03/14/2015 LADARIUS MELGOZA MD K Ot R13.10 03/14/2015 RHONA HARTLEY, LADARIUS K Ot R53.1 04/01/2015 RHONA HARTLEY, LADARIUS K Ot K44.9 04/01/2015 RHONA HARTLEY, LADARIUS K Ot R13.10 04/01/2015 RHONA HARTLEY, LADARIUS K Ot R53.1 04/12/2015 RHONA HARTLEY, LADARIUS K Ot R53.1 04/12/2015 RHONA HARTLEY, LADARIUS K Ot K44.9 04/12/2015 RHONA HARTLEY, LADARIUS K Ot R13.10 04/23/2015 LADARIUS MELGOZA MD K Ot K44.9 DIAPHRAGMATIC HERNIA WITHOUT OBSTRUCTION 04/23/2015 RHONA HARTLEY, LADARIUS K Ot R13.10 DYSPHAGIA, UNSPECIFIED 04/29/2015 RHONA HARTLEY, LADARIUS K Ot R53.1 04/30/2015 LADAIRUS MELGOZA MD K Ot R53.1 05/16/2015 RHONA HARTLEY, LADARIUS K Ot R53.1 05/19/2015 LADARIUS MELGOZA MD K Ot R53.1 WEAKNESS 05/21/2015 LADARIUS MELGOZA MD K Ot R53.1 05/22/2015 RHONA HARTLEY, LADARIUS [place] Ot 780.79 05/22/2015 LADARIUS MELGOZA MD K Ot R53.1 05/22/2015 LADARIUS MELGOZA MD Ot 780.79 05/22/2015 LADARIUS MELGOZA MD Ot R53.1 06/14/2015 LADARIUS MELGOZA MD Ot 780.79 06/14/2015 LADARIUS MELGOZA MD Ot R53.1 07/01/2015 LADARIUS MELGOZA MD Ot 780.79 07/01/2015 LADARIUS MELGOZA MD Ot R53.1 07/04/2015 LADARIUS MELGOZA MD Ot 780.79 07/04/2015 LADRAIUS MELGOZA MD Ot R53.1 07/08/2015 LADARIUS MELGOZA MD Ot R53.1 WEAKNESS 07/27/2015 DAMIÁN GOLDBERG MD Ot D72.819 DECREASED WHITE BLOOD CELL COUNT, UNSPEC 07/27/2015 DAMIÁN GOLDBERG MD Ot E87.1 HYPO-OSMOLALITY AND HYPONATREMIA 07/27/2015 DAMIÁN GOLDBERG MD Ot I95.9 HYPOTENSION, UNSPECIFIED 07/27/2015 DAMIÁN GOLDBERG MD Ot R29.818 OTHER SYMPTOMS AND SIGNS INVOLVING THE N 07/27/2015 DAMIÁN GOLDBERG MD Ot R53.83 OTHER FATIGUE 09/05/2015 JANAK ALFONSO MD Ot E46 UNSPECIFIED PROTEIN-CALORIE MALNUTRITION 09/05/2015 JANAK ALFONSO MD Ot Z01.818 ENCOUNTER FOR OTHER PREPROCEDURAL EXAMIN 09/05/2015 JANAK ALFONSO MD Ot E46 UNSPECIFIED PROTEIN-CALORIE MALNUTRITION 09/05/2015 JANAK ALFONSO MD Ot Z01.818 ENCOUNTER FOR OTHER PREPROCEDURAL EXAMIN 09/05/2015 JANAK ALFONSO MD Ot E46 UNSPECIFIED PROTEIN-CALORIE MALNUTRITION 09/05/2015 JANAK ALFONSO MD Ot Z01.818 ENCOUNTER FOR OTHER PREPROCEDURAL EXAMIN 09/06/2015 Ot 724.02 SPINAL STENOSIS, LUMBAR REG, W/OUT NEURO 09/06/2015 LADARIUS MELGOZA MD Ot 781.0 ABN INVOLUN MOVEMENT NEC 09/06/2015 LADARIUS MELGOZA MD Ot R13.10 DYSPHAGIA, UNSPECIFIED 09/06/2015 JANAK ALFONSO MD Ot 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 09/06/2015 JANAK ALFONSO MD Ot K21.0 GASTRO-ESOPHAGEAL REFLUX DISEASE WITH ES 09/06/2015 JANAK ALFONSO MD Ot K29.70 GASTRITIS, UNSPECIFIED, WITHOUT BLEEDING 09/06/2015 JANAK ALFONSO MD Ot R13.10 DYSPHAGIA, UNSPECIFIED 09/08/2015 Ot 724.02 SPINAL STENOSIS, LUMBAR REG, W/OUT NEURO 09/08/2015 LADARIUS MELGOZA MD Ot 781.0 ABN INVOLUN MOVEMENT NEC 09/08/2015 LADARIUS MELGOZA MD Ot R13.10 DYSPHAGIA, UNSPECIFIED 09/09/2015 JANAK ALFONSO MD Ot 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 09/09/2015 JANAK ALFONSO MD Ot K21.0 GASTRO-ESOPHAGEAL REFLUX DISEASE WITH ES 09/09/2015 JANAK ALFONSO MD Ot K29.70 GASTRITIS, UNSPECIFIED, WITHOUT BLEEDING 09/09/2015 JANAK ALFONSO MD Ot R13.10 DYSPHAGIA, UNSPECIFIED 09/11/2015 JANAK ALFONSO MD Ot E46 UNSPECIFIED PROTEIN-CALORIE MALNUTRITION 09/11/2015 JANAK ALFONSO MD Ot Z01.818 ENCOUNTER FOR OTHER PREPROCEDURAL EXAMIN 09/11/2015 JANAK ALFONSO MD Ot E87.1 HYPO-OSMOLALITY AND HYPONATREMIA 09/11/2015 JANAK ALFONSO MD Ot F80.1 EXPRESSIVE LANGUAGE DISORDER 09/11/2015 JANAK ALFONSO MD Ot 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 09/11/2015 JANAK ALFONSO MD Ot K21.9 GASTRO-ESOPHAGEAL REFLUX DISEASE WITHOUT 09/11/2015 JANAK ALFONSO MD Ot K29.70 GASTRITIS, UNSPECIFIED, WITHOUT BLEEDING 09/11/2015 JANAK ALFONSO MD Ot L02.211 CUTANEOUS ABSCESS OF ABDOMINAL WALL 09/11/2015 JANAK ALFONSO MD Ot Z87.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 09/11/2015 JANAK ALFONSO MD Ot Z93.1 GASTROSTOMY STATUS 09/12/2015 JANAK ALFONSO MD, Ot E87.1 HYPO-OSMOLALITY AND HYPONATREMIA 09/12/2015 JANAK ALFONSO MD Ot F80.1 EXPRESSIVE LANGUAGE DISORDER 09/12/2015 JANAK ALFONSO MD Ot 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 09/12/2015 JANAK ALFONSO MD Ot K21.9 GASTRO-ESOPHAGEAL REFLUX DISEASE WITHOUT 09/12/2015 JANAK ALFONSO MD Ot K29.70 GASTRITIS, UNSPECIFIED, WITHOUT BLEEDING 09/12/2015 JANAK ALFONSO MD Ot L02.211 CUTANEOUS ABSCESS OF ABDOMINAL WALL 09/12/2015 JANAK ALFONSO MD Ot Z87.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 09/12/2015 JANAK ALFONSO MD Ot Z93.1 GASTROSTOMY STATUS 09/12/2015 JANAK ALFONSO MD Ot E46 UNSPECIFIED PROTEIN-CALORIE MALNUTRITION 09/12/2015 JANAK ALFONSO MD Ot E87.1 HYPO-OSMOLALITY AND HYPONATREMIA 09/12/2015 JANAK ALFONSO MD Ot F80.1 EXPRESSIVE LANGUAGE DISORDER 09/12/2015 JANAK ALFONSO MD, Ot 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 09/12/2015 JANAK ALFONSO MD Ot K21.9 GASTRO-ESOPHAGEAL REFLUX DISEASE WITHOUT 09/12/2015 JANAK ALFONSO MD Ot K29.70 GASTRITIS, UNSPECIFIED, WITHOUT BLEEDING 09/12/2015 JANAK ALFONSO MD Ot L02.211 CUTANEOUS ABSCESS OF ABDOMINAL WALL 09/12/2015 JANAK ALFONSO MD Ot Z87.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 09/12/2015 JANAK ALFONSO MD Ot Z93.1 GASTROSTOMY STATUS 10/23/2015 Ot 724.02 SPINAL STENOSIS, LUMBAR REG, W/OUT NEURO 10/23/2015 LADARIUS MELGOZA MD Ot 781.0 ABN INVOLUN MOVEMENT NEC 10/23/2015 LADARIUS MELGOZA MD Ot R13.10 DYSPHAGIA, UNSPECIFIED 10/25/2015 TELMA DUARTE CINTHIA Ot A41.9 SEPSIS, UNSPECIFIED ORGANISM 10/25/2015 GAVIN HOLLIS DOI Ot D64.9 ANEMIA, UNSPECIFIED 10/25/2015 GAVIN HOLLIS DOI Ot E43 UNSPECIFIED SEVERE PROTEIN-CALORIE MALNU 10/25/2015 GAVIN HOLLIS DOI Ot E86.0 DEHYDRATION 10/25/2015 GAVIN HOLLIS DOI Ot 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 10/25/2015 CINTHIA HOLLIS DO Ot G98.8 OTHER DISORDERS OF NERVOUS SYSTEM 10/25/2015 CINTHIA HOLLIS DO Ot J69.0 PNEUMONITIS DUE TO INHALATION OF FOOD AN 10/25/2015 HOLLIS CINTHIA DUARTE Ot K21.9 GASTRO-ESOPHAGEAL REFLUX DISEASE WITHOUT 10/25/2015 CINTHIA HOLLIS DO Ot K44.9 DIAPHRAGMATIC HERNIA WITHOUT OBSTRUCTION 10/25/2015 CINTHIA HOLLIS DO Ot R13.10 DYSPHAGIA, UNSPECIFIED 10/25/2015 HOLLIS CINTHIA DUARTE Ot 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 10/25/2015 CINTHIA HOLLIS DO Ot Z93.1 GASTROSTOMY STATUS 11/28/2015 JANAK ALFONSO MD Ot K94.23 GASTROSTOMY MALFUNCTION 11/28/2015 JANAK ALFONSO MD Ot Z01.818 ENCOUNTER FOR OTHER PREPROCEDURAL EXAMIN 11/29/2015 Ot 724.02 SPINAL STENOSIS, LUMBAR REG, W/OUT NEURO 11/29/2015 LADARIUS MELGOZA MD Ot 781.0 ABN INVOLUN MOVEMENT NEC 11/29/2015 LADARIUS MELGOZA MD Ot R13.10 DYSPHAGIA, UNSPECIFIED 11/29/2015 JANAK ALFONSO MD Ot E46 UNSPECIFIED PROTEIN-CALORIE MALNUTRITION 11/29/2015 JANAK ALFONSO MD Ot K21.0 GASTRO-ESOPHAGEAL REFLUX DISEASE WITH ES 11/29/2015 JANAK ALFONSO MD Ot K29.70 GASTRITIS, UNSPECIFIED, WITHOUT BLEEDING 11/29/2015 JANAK ALFONSO MD Ot K94.23 GASTROSTOMY MALFUNCTION 11/29/2015 JANAK ALFONSO MD Ot R13.10 DYSPHAGIA, UNSPECIFIED 12/02/2015 JANAK ALFONSO MD Ot E46 UNSPECIFIED PROTEIN-CALORIE MALNUTRITION 12/02/2015 JANAK ALFONSO MD Ot K21.0 GASTRO-ESOPHAGEAL REFLUX DISEASE WITH ES 12/02/2015 JANAK ALFONSO MD Ot K29.70 GASTRITIS, UNSPECIFIED, WITHOUT BLEEDING 12/02/2015 JANAK ALFONSO MD Ot K94.23 GASTROSTOMY MALFUNCTION 12/02/2015 JANAK ALFONSO MD Ot R13.10 DYSPHAGIA, UNSPECIFIED 12/04/2015 JANAK ALFONSO MD Ot K94.23 GASTROSTOMY MALFUNCTION 12/04/2015 JANAK ALFONSO MD Ot Z01.818 ENCOUNTER FOR OTHER PREPROCEDURAL EXAMIN 01/02/2016 JANAK ALFONSO MD Ot E46 UNSPECIFIED PROTEIN-CALORIE MALNUTRITION 01/02/2016 JANAK ALFONSO MD Ot K21.0 GASTRO-ESOPHAGEAL REFLUX DISEASE WITH ES 01/02/2016 JANAK ALFONSO MD Ot K29.70 GASTRITIS, UNSPECIFIED, WITHOUT BLEEDING 01/02/2016 JANAK ALFONSO MD Ot K94.23 GASTROSTOMY MALFUNCTION 01/02/2016 JANAK ALFONSO MD Ot R13.10 DYSPHAGIA, UNSPECIFIED 02/26/2016 DAMIÁN GOLDBERG MD Ot A41.9 SEPSIS, UNSPECIFIED ORGANISM 02/26/2016 DAMIÁN GOLDBERG MD Ot D64.9 ANEMIA, UNSPECIFIED 02/26/2016 DAMIÁN GOLDBERG MD Ot E43 UNSPECIFIED SEVERE PROTEIN-CALORIE MALNU 02/26/2016 DAMIÁN GOLDBERG MD Ot E87.2 ACIDOSIS 02/26/2016 DAMIÁN GOLDBERG MD Ot 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 02/26/2016 DAMIÁN GOLDBERG MD Ot G70.9 MYONEURAL DISORDER, UNSPECIFIED 02/26/2016 DAMIÁN GOLDBERG MD Ot J13 PNEUMONIA DUE TO STREPTOCOCCUS PNEUMONIA 02/26/2016 DAMIÁN GOLDBERG MD Ot J15.212 PNEUMONIA DUE TO METHICILLIN RESISTANT S 02/26/2016 DAMIÁN GOLDBERG MD Ot J69.0 PNEUMONITIS DUE TO INHALATION OF FOOD AN 02/26/2016 DAMIÁN GOLDBERG MD Ot J96.00 ACUTE RESPIRATORY FAILURE, UNSP W HYPOXI 02/26/2016 DAMIÁN GOLDBERG MD Ot K21.9 GASTRO-ESOPHAGEAL REFLUX DISEASE WITHOUT 02/26/2016 DAMIÁN GOLDBERG MD Ot K44.9 DIAPHRAGMATIC HERNIA WITHOUT OBSTRUCTION 02/26/2016 DAMIÁN GOLDBERG MD Ot R65.21 SEVERE SEPSIS WITH SEPTIC SHOCK 02/26/2016 DAMIÁN GOLDBERG MD Ot A41.9 SEPSIS, UNSPECIFIED ORGANISM 02/26/2016 DAMIÁN GOLDBERG MD Ot D64.9 ANEMIA, UNSPECIFIED 02/26/2016 DAMIÁN GOLDBERG MD Ot E43 UNSPECIFIED SEVERE PROTEIN-CALORIE MALNU 02/26/2016 DAMIÁN GOLDBERG MD Ot E87.2 ACIDOSIS 02/26/2016 DAMIÁN GOLDBERG MD Ot 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 02/26/2016 DAMIÁN GOLDBERG MD Ot G70.9 MYONEURAL DISORDER, UNSPECIFIED 02/26/2016 DAMÁIN GOLDBERG MD Ot J13 PNEUMONIA DUE TO STREPTOCOCCUS PNEUMONIA 02/26/2016 DAMIÁN GOLDBERG MD Ot J15.212 PNEUMONIA DUE TO METHICILLIN RESISTANT S 02/26/2016 DAMIÁN GOLDBERG MD Ot J69.0 PNEUMONITIS DUE TO INHALATION OF FOOD AN 02/26/2016 DAMIÁN GOLDBERG MD Ot J96.00 ACUTE RESPIRATORY FAILURE, UNSP W HYPOXI 02/26/2016 DAMIÁN GOLDBERG MD Ot K21.9 GASTRO-ESOPHAGEAL REFLUX DISEASE WITHOUT 02/26/2016 DAMIÁN GOLDBERG MD Ot K44.9 DIAPHRAGMATIC HERNIA WITHOUT OBSTRUCTION 02/26/2016 DAMIÁN GOLDBERG MD Ot R65.21 SEVERE SEPSIS WITH SEPTIC SHOCK 02/26/2016 DAMIÁN GOLDBERG MD Ot A41.9 SEPSIS, UNSPECIFIED ORGANISM 02/26/2016 DAMIÁN GOLDBERG MD Ot D64.9 ANEMIA, UNSPECIFIED 02/26/2016 DAMIÁN GOLDBERG MD Ot E43 UNSPECIFIED SEVERE PROTEIN-CALORIE MALNU 02/26/2016 DAMIÁN GOLDBERG MD Ot E87.2 ACIDOSIS 02/26/2016 DAMIÁN GOLDBERG MD Ot 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 02/26/2016 DAMIÁN GOLDBERG MD Ot G70.9 MYONEURAL DISORDER, UNSPECIFIED 02/26/2016 DAMIÁN GOLDBERG MD Ot J13 PNEUMONIA DUE TO STREPTOCOCCUS PNEUMONIA 02/26/2016 DAMIÁN GOLDBERG MD Ot J15.212 PNEUMONIA DUE TO METHICILLIN RESISTANT S 02/26/2016 DAMIÁN GOLDBERG MD Ot J69.0 PNEUMONITIS DUE TO INHALATION OF FOOD AN 02/26/2016 DAMIÁN GOLDBERG MD Ot J96.00 ACUTE RESPIRATORY FAILURE, UNSP W HYPOXI 02/26/2016 DAMIÁN GOLDBERG MD Ot K21.9 GASTRO-ESOPHAGEAL REFLUX DISEASE WITHOUT 02/26/2016 DAMIÁN GOLDBERG MD Ot K44.9 DIAPHRAGMATIC HERNIA WITHOUT OBSTRUCTION 02/26/2016 DAMIÁN GOLDBERG MD M Ot R65.21 SEVERE SEPSIS WITH SEPTIC SHOCK 04/05/2016 Ot 724.02 SPINAL STENOSIS, LUMBAR REG, W/OUT NEURO 04/05/2016 LADARIUS MELGOZA MD Ot 781.0 ABN INVOLUN MOVEMENT NEC 04/05/2016 LADARIUS MELGOZA MD Ot R13.10 DYSPHAGIA, UNSPECIFIED 04/05/2016 HOLLIS DO, CINTHIA Ot J15.212 PNEUMONIA DUE TO METHICILLIN RESISTANT S 04/05/2016 JUAN JOSE BLAS APRN Ot 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 04/05/2016 JUAN JOSE BLAS APRN Ot K94.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 GASTROSTOMY 04/05/2016 JUAN JOSE BLAS APRN Ot Z79.899 OTHER FIELD OPERATIONS COORDINATOR (CURRENT) DRUG THERAPY 04/06/2016 Ot 724.02 SPINAL STENOSIS, LUMBAR REG, W/OUT NEURO 04/06/2016 LADARIUS MELGOZA MD Ot 781.0 ABN INVOLUN MOVEMENT NEC 04/06/2016 LADARIUS MELGOZA MD Ot R13.10 DYSPHAGIA, UNSPECIFIED 04/06/2016 HOLLIS DO, CINTHIA Ot J15.212 PNEUMONIA DUE TO METHICILLIN RESISTANT S 04/06/2016 LETA SUTTON Ot 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 04/06/2016 LETA SUTTON Ot Z43.1 ENCOUNTER FOR ATTENTION TO GASTROSTOMY 04/06/2016 LETA SUTTON Ot Z79.899 OTHER FIELD OPERATIONS COORDINATOR (CURRENT) DRUG THERAPY 04/07/2016 JUAN JOSE BLAS APRN Ot 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 04/07/2016 JUAN JOSE BLAS APRN Ot K94.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 GASTROSTOMY 04/07/2016 JUAN JOSE BLAS APRN Ot Z79.899 OTHER FIELD OPERATIONS COORDINATOR (CURRENT) DRUG THERAPY 04/07/2016 JUAN JOSE BLAS APRN Ot 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 04/07/2016 JUAN JOSE BLAS APRN Ot 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.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 GASTROSTOMY 04/07/2016 JUAN JOSE BLAS APRN Ot Z79.899 OTHER FIELD OPERATIONS COORDINATOR (CURRENT) DRUG THERAPY 04/07/2016 LETA SUTTON Ot 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 04/07/2016 LETA SUTTON Ot Z43.1 ENCOUNTER FOR ATTENTION TO GASTROSTOMY 04/07/2016 LETA SUTTON Ot Z79.899 OTHER FIELD OPERATIONS COORDINATOR (CURRENT) DRUG THERAPY 04/08/2016 [employer]AN JOSE [employer] Ot 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 04/08/2016 [employer] Ot R05 COUGH 04/08/2016 [employer] Ot R50.9 FEVER, UNSPECIFIED 04/08/2016 [employer] Ot Z79.899 OTHER [facility] (CURRENT) DRUG THERAPY 04/08/2016 [employer] Ot Z93.1 GASTROSTOMY STATUS 04/10/2016 JUAN JOSE BLAS APRN Ot 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 04/10/2016 [employer] Ot R05 COUGH 04/10/2016 JUAN JOSE BLAS APRN Ot R50.9 FEVER, UNSPECIFIED 04/10/2016 [employer] Ot Z79.899 OTHER FIELD OPERATIONS COORDINATOR (CURRENT) DRUG THERAPY 04/10/2016 [employer] Ot Z93.1 GASTROSTOMY STATUS 08/28/2016 [employer] Ot K85.90 ACUTE PANCREATITIS WITHOUT NECROSIS OR I 09/15/2016 IMAN GUNDERSON APRN Ot K85.90 ACUTE PANCREATITIS WITHOUT NECROSIS OR I 09/18/2016 LADARIUS MELGOZA MD Ot G81.91 HEMIPLEGIA, UNSPECIFIED AFFECTING RIGHT 09/18/2016 LADARIUS MELGOZA MD Ot R47.02 DYSPHASIA 09/18/2016 LADARIUS MELGOZA MD Ot R47.1 DYSARTHRIA AND ANARTHRIA 09/21/2016 LADARIUS MELGOZA MD Ot G81.91 HEMIPLEGIA, UNSPECIFIED AFFECTING RIGHT 09/21/2016 LADARIUS MELGOZA MD Ot R47.02 DYSPHASIA 09/21/2016 LADARIUS MELGOZA MD Ot R47.1 DYSARTHRIA AND ANARTHRIA 09/28/2016 IMAN GUNDERSON APRN Ot K85.90 ACUTE PANCREATITIS WITHOUT NECROSIS OR I 09/28/2016 LADARIUS MELGOZA MD Ot G81.91 HEMIPLEGIA, UNSPECIFIED AFFECTING RIGHT 09/28/2016 LADARIUS MELGOZA MD Ot R47.02 DYSPHASIA 09/28/2016 LADARIUS MELGOZA MD Ot R47.1 DYSARTHRIA AND ANARTHRIA 10/06/2016 LADARIUS MELGOZA MD Ot G81.91 HEMIPLEGIA, UNSPECIFIED AFFECTING RIGHT 10/06/2016 LADARIUS MELGOZA MD Ot R47.02 DYSPHASIA 10/06/2016 LADARIUS MELGOZA MD Ot R47.1 DYSARTHRIA AND ANARTHRIA 10/20/2016 LADARIUS MELGOZA MD Ot G81.91 HEMIPLEGIA, UNSPECIFIED AFFECTING RIGHT 10/20/2016 LADARIUS MELGOZA MD Ot R47.02 DYSPHASIA 10/20/2016 LADARIUS MELGOZA MD Ot R47.1 DYSARTHRIA AND ANARTHRIA 10/23/2016 LADARIUS MELGOZA MD Ot G81.91 HEMIPLEGIA, UNSPECIFIED AFFECTING RIGHT 10/23/2016 LADARIUS MELGOZA MD Ot R47.02 DYSPHASIA 10/23/2016 LADARIUS MELGOZA MD Ot R47.1 DYSARTHRIA AND ANARTHRIA 10/23/2016 WARREN ARCOS MD Ot B37.9 CANDIDIASIS, UNSPECIFIED 10/23/2016 WARREN ARCOS MD Ot K02.9 DENTAL CARIES, UNSPECIFIED 10/23/2016 WARREN ARCOS MD T Ot K05.10 CHRONIC GINGIVITIS, PLAQUE INDUCED 10/23/2016 WARREN ARCOS MD Ot K08.89 OTHER SPECIFIED DISORDERS OF TEETH AND S 10/25/2016 WARREN ARCOS MD Ot B37.9 CANDIDIASIS, UNSPECIFIED 10/25/2016 WARREN ARCOS MD Ot K02.9 DENTAL CARIES, UNSPECIFIED 10/25/2016 WARREN ARCOS MD Ot K05.10 CHRONIC GINGIVITIS, PLAQUE INDUCED 10/25/2016 WARREN ARCOS MD Ot K08.89 OTHER SPECIFIED DISORDERS OF TEETH AND S 10/28/2016 LADARIUS MELGOZA MD Ot G81.91 HEMIPLEGIA, UNSPECIFIED AFFECTING RIGHT 10/28/2016 LADARIUS MELGOZA MD Ot R47.02 DYSPHASIA 10/28/2016 LADARIUS MELGOZA MD Ot R47.1 DYSARTHRIA AND ANARTHRIA 11/09/2016 LADARIUS MELGOZA MD Ot G81.91 HEMIPLEGIA, UNSPECIFIED AFFECTING RIGHT 11/09/2016 LADARIUS MELGOZA MD Ot R47.02 DYSPHASIA 11/09/2016 LADARIUS MELGOZA MD Ot R47.1 DYSARTHRIA AND ANARTHRIA 12/08/2016 LADARIUS MELGOZA MD Ot G81.91 HEMIPLEGIA, UNSPECIFIED AFFECTING RIGHT 12/08/2016 LADARIUS MELGOZA MD Ot R47.02 DYSPHASIA 12/08/2016 LADARIUS MELGOZA MD Ot R47.1 DYSARTHRIA AND ANARTHRIA 12/16/2016 LADARIUS MELGOZA MD Ot G81.91 HEMIPLEGIA, UNSPECIFIED AFFECTING RIGHT 12/16/2016 LADARIUS MELGOZA MD Ot R47.02 DYSPHASIA 12/16/2016 LADARIUS MELGOZA MD Ot R47.1 DYSARTHRIA AND ANARTHRIA 12/17/2016 LADARIUS MELGOZA MD, Ot G81.91 HEMIPLEGIA, UNSPECIFIED AFFECTING RIGHT 12/17/2016 LADARIUS MELGOZA MD Ot R47.02 DYSPHASIA 12/17/2016 LADARIUS MELGOZA MD Ot R47.1 DYSARTHRIA AND ANARTHRIA 12/17/2016 LADARIUS MELGOZA MD, Ot G81.91 HEMIPLEGIA, UNSPECIFIED AFFECTING RIGHT 12/17/2016 LADARIUS MELGOZA MD Ot R47.02 DYSPHASIA 12/17/2016 LADARIUS MELGOZA MD Ot R47.1 DYSARTHRIA AND ANARTHRIA 12/18/2016 LADARIUS MELGOZA MD Ot G81.91 HEMIPLEGIA, UNSPECIFIED AFFECTING RIGHT 12/18/2016 LADARIUS MELGOZA MD Ot R47.02 DYSPHASIA 12/18/2016 LADARIUS MELGOZA MD Ot R47.1 DYSARTHRIA AND ANARTHRIA 01/04/2017 LADARIUS MELGOZA MD Ot G81.91 HEMIPLEGIA, UNSPECIFIED AFFECTING RIGHT 01/04/2017 LADARIUS MELGOZA MD Ot R47.02 DYSPHASIA 01/04/2017 LADARIUS MELGOZA MD Ot R47.1 DYSARTHRIA AND ANARTHRIA 01/17/2017 LADARIUS MELGOZA MD Ot G81.91 HEMIPLEGIA, UNSPECIFIED AFFECTING RIGHT 01/17/2017 BROWN MD, LADARIUS K Ot R47.02 DYSPHASIA 01/17/2017 RHONA HARTLEY, LADARIUS K Ot R47.1 DYSARTHRIA AND ANARTHRIA 01/17/2017 MIGUEL DO, JADA K Ot F32.9 MAJOR DEPRESSIVE DISORDER, SINGLE EPISOD 01/17/2017 MIGUEL DO, JADA K Ot K21.9 GASTRO-ESOPHAGEAL REFLUX DISEASE WITHOUT 01/17/2017 MIGUEL DO, JADA K Ot K59.00 CONSTIPATION, UNSPECIFIED 01/17/2017 MIGUEL DO, JADA K Ot R10.9 UNSPECIFIED ABDOMINAL PAIN 01/17/2017 MIGUEL DO, JADA K Ot R91.8 OTHER NONSPECIFIC ABNORMAL FINDING OF [place]RAX[place] 01/17/2017 MIGUEL DO, JADA K Ot Z87.09 PERSONAL HISTORY OF OTHER DISEASES OF 01/17/2017 MIGUEL DO, JADA K Ot Z87.19 PERSONAL HISTORY OF OTHER DISEASES OF 01/17/2017 MIGUEL DO, JADA K Ot Z87.442 PERSONAL HISTORY OF URINARY CALCULI 01/17/2017 MIGUEL DO, JADA K Ot Z90.49 ACQUIRED ABSENCE OF OTHER SPECIFIED PART 01/19/2017 MIGUEL DO, JADA K Ot F32.9 MAJOR DEPRESSIVE DISORDER, SINGLE EPISOD 01/19/2017 MIGUEL DO, JADA K Ot K21.9 GASTRO-ESOPHAGEAL REFLUX DISEASE WITHOUT 01/19/2017 MIGUEL DO, JADA K Ot K59.00 CONSTIPATION, UNSPECIFIED 01/19/2017 MIGUEL DO, JADA K Ot R10.9 UNSPECIFIED ABDOMINAL PAIN 01/19/2017 MIGUEL DO, JADA K Ot R91.8 OTHER NONSPECIFIC ABNORMAL FINDING OF BRAXTON 01/19/2017 MIGUEL DO, JADA K Ot Z87.09 PERSONAL HISTORY OF OTHER DISEASES OF TH 01/19/2017 MIGUEL DO, JADA K Ot Z87.19 PERSONAL HISTORY OF OTHER DISEASES OF TH 01/19/2017 MIGUEL DO, JADA K Ot Z87.442 PERSONAL HISTORY OF URINARY CALCULI 01/19/2017 MIGUEL DO, JADA K Ot Z90.49 ACQUIRED ABSENCE OF OTHER SPECIFIED PART 01/20/2017 MIGUEL DO, JADA K Ot F32.9 MAJOR DEPRESSIVE DISORDER, SINGLE EPISOD 01/20/2017 MIGUEL DO, JADA K Ot K21.9 GASTRO-ESOPHAGEAL REFLUX DISEASE WITHOUT 01/20/2017 MIGUEL DO, JADA K Ot K59.00 CONSTIPATION, UNSPECIFIED 01/20/2017 JADA RIVERA DO Ot R10.9 UNSPECIFIED ABDOMINAL PAIN 01/20/2017 JADA RIVERA DO Ot R91.8 OTHER NONSPECIFIC ABNORMAL FINDING OF BRAXTON 01/20/2017 JADA RIVERA DO Ot Z87.09 PERSONAL HISTORY OF OTHER DISEASES OF TH 01/20/2017 JADA RIVERA DO Ot Z87.19 PERSONAL HISTORY OF OTHER DISEASES OF TH 01/20/2017 JADA RIVERA DO Ot Z87.442 PERSONAL HISTORY OF URINARY CALCULI 01/20/2017 JADA RIVERA DO Ot Z90.49 ACQUIRED ABSENCE OF OTHER SPECIFIED PART 01/27/2017 LADARIUS MELGOZA MD, Ot G81.91 HEMIPLEGIA, UNSPECIFIED AFFECTING RIGHT 01/27/2017 LADARIUS MELGOZA MD Ot R47.02 DYSPHASIA 01/27/2017 LADARIUS MELGOZA MD, Ot R47.1 DYSARTHRIA AND ANARTHRIA 02/09/2017 LADARIUS MELGOZA MD, Ot G81.91 HEMIPLEGIA, UNSPECIFIED AFFECTING RIGHT 02/09/2017 LADARIUS MELGOZA MD Ot R47.02 DYSPHASIA 02/09/2017 LADARIUS MELGOZA MD, Ot R47.1 DYSARTHRIA AND ANARTHRIA 02/10/2017 LADARIUS MELGOZA MD, Ot G81.91 HEMIPLEGIA, UNSPECIFIED AFFECTING RIGHT 02/10/2017 LADARIUS MELGOZA MD Ot R47.02 DYSPHASIA 02/10/2017 LADARIUS MELGOZA MD Ot R47.1 DYSARTHRIA AND ANARTHRIA 05/13/2017 MATY FORD DO, Ot 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, UNSPECIFIED 05/13/2017 MATY FORD DO, Ot 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 OR RADICULOPA 05/13/2017 MATY FORD DO, Ot M47.816 SPONDYLOSIS W/O MYELOPATHY OR RADICULOPA 05/13/2017 MATY FORD DO, Ot M48.061 SPINAL STENOSIS, LUMBAR REGION WITHOUT N Procedures Code Description Performed By Performed On 42.92 ESOPHAGEAL DILATION 06/04/2011 45.13 OTHER ENDOSCOPY OF INTEST 06/04/2011 98.02 REMOV INTRALUM ESOPH FB 06/04/2011 [id number] RESPIRATORY VENTILATION, 24-96 CONSECUTI 02/22/2016 [id number] EXCISION OF LEFT UPPER LEG MUSCLE, PERC 02/25/2016 Results Test Result Range Complete blood count (CBC) with automated white blood cell (WBC) differential - 02/22/16 00:35 Blood leukocytes automated count (number/volume) 27.6 10*3/uL 4.3-11.0 Blood erythrocytes automated count (number/volume) 4.74 10*6/uL 4.35-5.85 Venous blood hemoglobin measurement (mass/volume) 14.0 g/dL 13.3-17.7 Blood hematocrit (volume fraction) 42 % 40-54 Automated erythrocyte mean corpuscular volume 89 [foz_us] 80-99 Automated erythrocyte mean corpuscular hemoglobin (mass per erythrocyte) 30 pg 25-34 Automated erythrocyte mean corpuscular hemoglobin concentration measurement ( mass/volume) 33 g/dL 32-36 Automated erythrocyte distribution width ratio 14.1 % 10.0-14.5 Automated blood platelet count (count/volume) 442 10*3/uL 130-400 Automated blood platelet mean volume measurement 9.9 [foz_us] 7.4-10.4 Automated blood neutrophils/100 leukocytes 90 % 42-75 Automated blood lymphocytes/100 leukocytes 6 % 12-44 Blood monocytes/100 leukocytes 3 % 0-12 Automated blood eosinophils/100 leukocytes 1 % 0-10 Automated blood basophils/100 leukocytes 0 % 0-10 Blood neutrophils automated count (number/volume) 24.8 10*3 1.8-7.8 Blood lymphocytes automated count (number/volume) 1.6 10*3 1.0-4.0 Blood monocytes automated count (number/volume) 0.9 10*3 0.0-1.0 Automated eosinophil count 0.2 10*3/uL 0.0-0.3 Automated blood basophil count (count/volume) 0.1 10*3/uL 0.0-0.1 PT panel in platelet poor plasma by coagulation assay - 02/22/16 00:35 Prothrombin time (PT) in platelet poor plasma by coagulation assay 14.0 s 12.2-14.7 INR in platelet poor plasma or blood by coagulation assay 1.1 0.8-1.4 Activated partial thromboplastin time (aPTT) in platelet poor plasma bycoagulation assay - 02/22/16 00:35 Activated partial thromboplastin time (aPTT) in platelet poor plasma bycoagulation assay 31 s 24-35 Comprehensive metabolic panel - 02/22/16 00:35 Serum or plasma sodium measurement (moles/volume) 137 mmol/L 135-145 Serum or plasma potassium measurement (moles/volume) 4.5 mmol/L 3.6-5.0 Serum or plasma chloride measurement (moles/volume) 103 mmol/L 98-107 Carbon dioxide 19 mmol/L 21-32 Serum or plasma anion gap determination (moles/volume) 15 mmol/L 5-14 Serum or plasma urea nitrogen measurement (mass/volume) 10 mg/dL 7-18 Serum or plasma creatinine measurement (mass/volume) 0.73 mg/dL 0.60-1.30 Serum or plasma urea nitrogen/creatinine mass ratio 14 NRG Serum or plasma creatinine measurement with calculation of estimated glomerular filtration rate > NRG Serum or plasma glucose measurement (mass/volume) 81 mg/dL 70-105 Serum or plasma calcium measurement (mass/volume) 9.5 mg/dL 8.5-10.1 Serum or plasma total bilirubin measurement (mass/volume) 0.9 mg/dL 0.1-1.0 Serum or plasma alkaline phosphatase measurement (enzymatic activity/volume) 76 U/L 40-136 Serum or plasma aspartate aminotransferase measurement (enzymatic activity/ volume) 17 U/L 5-34 Serum or plasma alanine aminotransferase measurement (enzymatic activity/volume ) 12 U/L 0-55 Serum or plasma protein measurement (mass/volume) 8.3 g/dL 6.4-8.2 Serum or plasma albumin measurement (mass/volume) 4.0 g/dL 3.2-4.5 Blood manual differential performed detection - 02/22/16 00:35 Blood monocytes/100 leukocytes 2 % NRG Manual blood segmented neutrophils/100 leukocytes 86 % NRG Blood band neutrophils/100 leukocytes 6 % NRG Manual blood lymphocytes/100 leukocytes 5 % NRG Manual eosinophils/100 leukocytes in nose 1 % NRG Blood erythrocyte morphology finding identification NORMAL NRG Blood lactic acid measurement (moles/volume) - 02/22/16 00:35 Blood lactic acid measurement (moles/volume) 1.5 mmol/L 0.5-2.0 Bacterial blood culture - 02/22/16 00:35 Bacterial blood culture NG NRG Bacterial blood culture - 02/22/16 01:20 Bacterial blood culture NG NRG Complete urinalysis with reflex to culture - 02/22/16 01:30 Urine color determination YELLOW NRG Urine clarity determination CLEAR NRG Urine pH measurement by test strip 5 5-9 Specific gravity of urine by test strip 1.015 1.016- 1.022 Urine protein assay by test strip, semi-quantitative NEGATIVE NEGATIVE Urine glucose detection by automated test strip NEGATIVE NEGATIVE Erythrocytes detection in urine sediment by light microscopy NEGATIVE NEGATIVE Urine ketones detection by automated test strip 3+ NEGATIVE Urine nitrite detection by test strip NEGATIVE NEGATIVE Urine total bilirubin detection by test strip NEGATIVE NEGATIVE Urine urobilinogen measurement by automated test strip (mass/volume) 1 mg/dL NORMAL Urine leukocyte esterase detection by dipstick NEGATIVE NEGATIVE Automated urine sediment erythrocyte count by microscopy (number/high power field) NONE NRG Automated urine sediment leukocyte count by microscopy (number/high power field ) NONE NRG Bacteria detection in urine sediment by light microscopy NEGATIVE NRG Squamous epithelial cells detection in urine sediment by light microscopy RARE NRG Crystals detection in urine sediment by light microscopy NONE NRG Casts detection in urine sediment by light microscopy NONE NRG Mucus detection in urine sediment by light microscopy SMALL NRG Complete urinalysis with reflex to culture NO NRG Arterial blood gas measurement - 02/22/16 01:47 Blood pCO2 45 mm[Hg] 35-45 Blood pO2 338 mm[Hg] 79-93 Arterial blood bicarbonate measurement (moles/volume) 22 mmol/L 23-27 Arterial blood base excess by calculation -3.5 mmol/L - 2.5-2.5 Arterial blood oxygen saturation measurement 100 % 94- 100 * Inhaled oxygen flow rate NOT INDICATED NRG Arterial blood pH measurement with patient temperature correction 7.32 7.37-7.43 Arterial blood carbon dioxide, total measurement (moles/volume) 23.8 mmol/L 21.0-31.0 Body site LT BRACHIAL NRG Assessment of wrist artery patency prior to arterial puncture NA NRG Setting of ventilation mode NO NRG Measurement of body temperature 99.7 NRG Methicillin resistant Staphylococcus aureus (MRSA) screening culture - 02:25 MRSA SCREEN RESULT MRSA ISOLATED NRG Sputum Gram stain - 02/22/16 02:40 GRAM STAIN SPUTUM LANCET SHAPED GRAM POS COCCI RESEMBLING STREP PNEUMONIAE NRG Bacterial sputum culture - 02/22/16 02:40 FREE TEXT EXTERNAL SENSITIVITY REPORTED 02/24/16 7:35 NRG QUANTITY OF GROWTH Scant Growth NRG MRSA AGAR MRSA isolated (Screening test for MRSA is positive) NRG FREE TEXT ENTRY 2 PLUS NORAL ROBBY NRG FREE TEXT ENTRY 3 FOR SENSITIVITY. NRG CALL POSITIVES (F1 HELP) CALLED TO SORAIDA RODRÍGUEZ 02/24/16 7:45 BY Sonny RIVERA NR Bacterial sputum culture [id number] NR Bacterial susceptibility panel - 02/22/16 02:40 Oxacillin susceptibility test by minimum inhibitory concentration > = NRG Gentamicin susceptibility test by minimum inhibitory concentration < = NRG Clindamycin susceptibility test by minimum inhibitory concentration R NRG Erythromycin susceptibility test by minimum inhibitory concentration R NRG Trimethoprim/sulfamethoxazole susceptibility test by minimum inhibitoryconcentration <= NRG Vancomycin susceptibility test by minimum inhibitory concentration 1 NRG Levofloxacin susceptibility test by minimum inhibitory concentration 0.25 NRG Rifampin susceptibility test by minimum inhibitory concentration <= NRG Tetracycline susceptibility test by minimum inhibitory concentration <= NRG Arterial blood gas measurement - 02/22/16 05:00 Blood pCO2 38 mm[Hg] 35-45 Blood pO2 113 mm[Hg] 79-93 Arterial blood bicarbonate measurement (moles/volume) 21 mmol/L 23-27 Arterial blood base excess by calculation -4.0 mmol/L - 2.5-2.5 Arterial blood oxygen saturation measurement 98 % 94-100 * Inhaled oxygen flow rate 60% NRG Arterial blood pH measurement with patient temperature correction 7.36 7.37-7.43 Arterial blood carbon dioxide, total measurement (moles/volume) 21.9 mmol/L 21.0-31.0 Body site LT RADIAL NRG Assessment of wrist artery patency prior to arterial puncture YES- POS NRG Setting of ventilation mode YES NRG Measurement of body temperature 100.1 NRG Complete blood count (CBC) with automated white blood cell (WBC) differential - 02/22/16 05:00 Blood leukocytes automated count (number/volume) 30.3 10*3/uL 4.3-11.0 Blood erythrocytes automated count (number/volume) 4.22 10*6/uL 4.35-5.85 Venous blood hemoglobin measurement (mass/volume) 12.6 g/dL 13.3-17.7 Blood hematocrit (volume fraction) 38 % 40-54 Automated erythrocyte mean corpuscular volume 90 [foz_us] 80-99 Automated erythrocyte mean corpuscular hemoglobin (mass per erythrocyte) 30 pg 25-34 Automated erythrocyte mean corpuscular hemoglobin concentration measurement ( mass/volume) 33 g/dL 32-36 Automated erythrocyte distribution width ratio 14.1 % 10.0-14.5 Automated blood platelet count (count/volume) 316 10*3/uL 130-400 Automated blood platelet mean volume measurement 10.1 [foz_us] 7.4-10.4 Automated blood neutrophils/100 leukocytes 94 % 42-75 Automated blood lymphocytes/100 leukocytes 3 % 12-44 Blood monocytes/100 leukocytes 2 % 0-12 Automated blood eosinophils/100 leukocytes 0 % 0-10 Automated blood basophils/100 leukocytes 0 % 0-10 Blood neutrophils automated count (number/volume) 28.5 10*3 1.8-7.8 Blood lymphocytes automated count (number/volume) 1.0 10*3 1.0-4.0 Blood monocytes automated count (number/volume) 0.7 10*3 0.0-1.0 Automated eosinophil count 0.0 10*3/uL 0.0-0.3 Automated blood basophil count (count/volume) 0.0 10*3/uL 0.0-0.1 Whole blood basic metabolic panel - 02/22/16 05:00 Serum or plasma sodium measurement (moles/volume) 136 mmol/L 135-145 Serum or plasma potassium measurement (moles/volume) 4.7 mmol/L 3.6-5.0 Serum or plasma chloride measurement (moles/volume) 107 mmol/L 98-107 Carbon dioxide 18 mmol/L 21-32 Serum or plasma anion gap determination (moles/volume) 11 mmol/L 5-14 Serum or plasma urea nitrogen measurement (mass/volume) 11 mg/dL 7-18 Serum or plasma creatinine measurement (mass/volume) 0.69 mg/dL 0.60-1.30 Serum or plasma urea nitrogen/creatinine mass ratio 16 NRG Serum or plasma creatinine measurement with calculation of estimated glomerular filtration rate > NRG Serum or plasma glucose measurement (mass/volume) 82 mg/dL 70-105 Serum or plasma calcium measurement (mass/volume) 8.4 mg/dL 8.5-10.1 Serum or plasma phosphate measurement (mass/volume) - 02/22/16 05:00 Serum or plasma phosphate measurement (mass/volume) 3.2 mg/dL 2.3-4.7 Magnesium - 02/22/16 05:00 Magnesium 1.9 mg/dL 1.8-2.4 Complete blood count (CBC) with automated white blood cell (WBC) differential - 02/23/16 04:00 Blood leukocytes automated count (number/volume) 19.0 10*3/uL 4.3-11.0 Blood erythrocytes automated count (number/volume) 3.55 10*6/uL 4.35-5.85 Venous blood hemoglobin measurement (mass/volume) 10.7 g/dL 13.3-17.7 Blood hematocrit (volume fraction) 32 % 40-54 Automated erythrocyte mean corpuscular volume 90 [foz_us] 80-99 Automated erythrocyte mean corpuscular hemoglobin (mass per erythrocyte) 30 pg 25-34 Automated erythrocyte mean corpuscular hemoglobin concentration measurement ( mass/volume) 33 g/dL 32-36 Automated erythrocyte distribution width ratio 14.2 % 10.0-14.5 Automated blood platelet count (count/volume) 289 10*3/uL 130-400 Automated blood platelet mean volume measurement 10.5 [foz_us] 7.4-10.4 Automated blood neutrophils/100 leukocytes 88 % 42-75 Automated blood lymphocytes/100 leukocytes 8 % 12-44 Blood monocytes/100 leukocytes 4 % 0-12 Automated blood eosinophils/100 leukocytes 1 % 0-10 Automated blood basophils/100 leukocytes 0 % 0-10 Blood neutrophils automated count (number/volume) 16.7 10*3 1.8-7.8 Blood lymphocytes automated count (number/volume) 1.5 10*3 1.0-4.0 Blood monocytes automated count (number/volume) 0.7 10*3 0.0-1.0 Automated eosinophil count 0.1 10*3/uL 0.0-0.3 Automated blood basophil count (count/volume) 0.0 10*3/uL 0.0-0.1 Whole blood basic metabolic panel - 02/23/16 04:00 Serum or plasma sodium measurement (moles/volume) 139 mmol/L 135-145 Serum or plasma potassium measurement (moles/volume) 3.9 mmol/L 3.6-5.0 Serum or plasma chloride measurement (moles/volume) 112 mmol/L 98-107 Carbon dioxide 16 mmol/L 21-32 Serum or plasma anion gap determination (moles/volume) 11 mmol/L 5-14 Serum or plasma urea nitrogen measurement (mass/volume) 8 mg/dL 7-18 Serum or plasma creatinine measurement (mass/volume) 0.62 mg/dL 0.60-1.30 Serum or plasma urea nitrogen/creatinine mass ratio 13 NRG Serum or plasma creatinine measurement with calculation of estimated glomerular filtration rate > NRG Serum or plasma glucose measurement (mass/volume) 91 mg/dL 70-105 Serum or plasma calcium measurement (mass/volume) 8.4 mg/dL 8.5-10.1 Serum or plasma phosphate measurement (mass/volume) - 02/23/16 04:00 Serum or plasma phosphate measurement (mass/volume) 2.2 mg/dL 2.3-4.7 Magnesium - 02/23/16 04:00 Magnesium 1.9 mg/dL 1.8-2.4 Capillary blood glucose measurement by glucometer (mass/volume) - 02/23/16 21: 14 Capillary blood glucose measurement by glucometer (mass/volume) 80 mg/dL 70-110 Complete blood count (CBC) with automated white blood cell (WBC) differential - 02/24/16 04:25 Blood leukocytes automated count (number/volume) 7.1 10*3/uL 4.3-11.0 Blood erythrocytes automated count (number/volume) 3.10 10*6/uL 4.35-5.85 Venous blood hemoglobin measurement (mass/volume) 9.1 g/dL 13.3-17.7 Blood hematocrit (volume fraction) 28 % 40-54 Automated erythrocyte mean corpuscular volume 90 [foz_us] 80-99 Automated erythrocyte mean corpuscular hemoglobin (mass per erythrocyte) 29 pg 25-34 Automated erythrocyte mean corpuscular hemoglobin concentration measurement ( mass/volume) 33 g/dL 32-36 Automated erythrocyte distribution width ratio 14.0 % 10.0-14.5 Automated blood platelet count (count/volume) 239 10*3/uL 130-400 Automated blood platelet mean volume measurement 11.0 [foz_us] 7.4-10.4 Automated blood neutrophils/100 leukocytes 74 % 42-75 Automated blood lymphocytes/100 leukocytes 16 % 12-44 Blood monocytes/100 leukocytes 7 % 0-12 Automated blood eosinophils/100 leukocytes 2 % 0-10 Automated blood basophils/100 leukocytes 0 % 0-10 Blood neutrophils automated count (number/volume) 5.2 10*3 1.8-7.8 Blood lymphocytes automated count (number/volume) 1.2 10*3 1.0-4.0 Blood monocytes automated count (number/volume) 0.5 10*3 0.0-1.0 Automated eosinophil count 0.1 10*3/uL 0.0-0.3 Automated blood basophil count (count/volume) 0.0 10*3/uL 0.0-0.1 Arterial blood gas measurement - 02/24/16 04:25 Blood pCO2 35 mm[Hg] 35-45 Blood pO2 145 mm[Hg] 79-93 Arterial blood bicarbonate measurement (moles/volume) 23 mmol/L 23-27 Arterial blood base excess by calculation -1.2 mmol/L - 2.5-2.5 Arterial blood oxygen saturation measurement 99 % 94-100 * Inhaled oxygen flow rate 21% NRG Arterial blood pH measurement with patient temperature correction 7.43 7.37-7.43 Arterial blood carbon dioxide, total measurement (moles/volume) 23.9 mmol/L 21.0-31.0 Body site LEFT RADIAL NRG Assessment of wrist artery patency prior to arterial puncture YES- POS NRG Setting of ventilation mode YES NRG Measurement of body temperature 98.1 NRG Whole blood basic metabolic panel - 02/24/16 04:25 Serum or plasma sodium measurement (moles/volume) 139 mmol/L 135-145 Serum or plasma potassium measurement (moles/volume) 3.3 mmol/L 3.6-5.0 Serum or plasma chloride measurement (moles/volume) 113 mmol/L 98-107 Carbon dioxide 19 mmol/L 21-32 Serum or plasma anion gap determination (moles/volume) 7 mmol/L 5-14 Serum or plasma urea nitrogen measurement (mass/volume) 5 mg/dL 7-18 Serum or plasma creatinine measurement (mass/volume) 0.50 mg/dL 0.60-1.30 Serum or plasma urea nitrogen/creatinine mass ratio 10 NRG Serum or plasma creatinine measurement with calculation of estimated glomerular filtration rate > NRG Serum or plasma glucose measurement (mass/volume) 82 mg/dL 70-105 Serum or plasma calcium measurement (mass/volume) 7.8 mg/dL 8.5-10.1 Serum or plasma phosphate measurement (mass/volume) - 02/24/16 04:25 Serum or plasma phosphate measurement (mass/volume) 1.5 mg/dL 2.3-4.7 Magnesium - 02/24/16 04:25 Magnesium 1.7 mg/dL 1.8-2.4 Capillary blood glucose measurement by glucometer (mass/volume) - 02/24/16 11: 03 Capillary blood glucose measurement by glucometer (mass/volume) 81 mg/dL 70-110 Complete blood count (CBC) with automated white blood cell (WBC) differential - 02/25/16 06:14 Blood leukocytes automated count (number/volume) 7.1 10*3/uL 4.3-11.0 Blood erythrocytes automated count (number/volume) 3.66 10*6/uL 4.35-5.85 Venous blood hemoglobin measurement (mass/volume) 10.7 g/dL 13.3-17.7 Blood hematocrit (volume fraction) 33 % 40-54 Automated erythrocyte mean corpuscular volume 89 [foz_us] 80-99 Automated erythrocyte mean corpuscular hemoglobin (mass per erythrocyte) 29 pg 25-34 Automated erythrocyte mean corpuscular hemoglobin concentration measurement ( mass/volume) 33 g/dL 32-36 Automated erythrocyte distribution width ratio 13.6 % 10.0-14.5 Automated blood platelet count (count/volume) 313 10*3/uL 130-400 Automated blood platelet mean volume measurement 10.3 [foz_us] 7.4-10.4 Automated blood neutrophils/100 leukocytes 73 % 42-75 Automated blood lymphocytes/100 leukocytes 19 % 12-44 Blood monocytes/100 leukocytes 6 % 0-12 Automated blood eosinophils/100 leukocytes 2 % 0-10 Automated blood basophils/100 leukocytes 1 % 0-10 Blood neutrophils automated count (number/volume) 5.2 10*3 1.8-7.8 Blood lymphocytes automated count (number/volume) 1.3 10*3 1.0-4.0 Blood monocytes automated count (number/volume) 0.4 10*3 0.0-1.0 Automated eosinophil count 0.1 10*3/uL 0.0-0.3 Automated blood basophil count (count/volume) 0.1 10*3/uL 0.0-0.1 Whole blood basic metabolic panel - 02/25/16 06:14 Serum or plasma sodium measurement (moles/volume) 140 mmol/L 135-145 Serum or plasma potassium measurement (moles/volume) 3.5 mmol/L 3.6-5.0 Serum or plasma chloride measurement (moles/volume) 111 mmol/L 98-107 Carbon dioxide 16 mmol/L 21-32 Serum or plasma anion gap determination (moles/volume) 13 mmol/L 5-14 Serum or plasma urea nitrogen measurement (mass/volume) 3 mg/dL 7-18 Serum or plasma creatinine measurement (mass/volume) 0.50 mg/dL 0.60-1.30 Serum or plasma urea nitrogen/creatinine mass ratio 6 NRG Serum or plasma creatinine measurement with calculation of estimated glomerular filtration rate > NRG Serum or plasma glucose measurement (mass/volume) 73 mg/dL 70-105 Serum or plasma calcium measurement (mass/volume) 8.0 mg/dL 8.5-10.1 Serum or plasma phosphate measurement (mass/volume) - 02/25/16 06:14 Serum or plasma phosphate measurement (mass/volume) 2.4 mg/dL 2.3-4.7 Magnesium - 02/25/16 06:14 Magnesium 1.7 mg/dL 1.8-2.4 Complete blood count (CBC) with automated white blood cell (WBC) differential - 02/26/16 05:06 Blood leukocytes automated count (number/volume) 4.9 10*3/uL 4.3-11.0 Blood erythrocytes automated count (number/volume) 3.41 10*6/uL 4.35-5.85 Venous blood hemoglobin measurement (mass/volume) 9.9 g/dL 13.3-17.7 Blood hematocrit (volume fraction) 30 % 40-54 Automated erythrocyte mean corpuscular volume 88 [foz_us] 80-99 Automated erythrocyte mean corpuscular hemoglobin (mass per erythrocyte) 29 pg 25-34 Automated erythrocyte mean corpuscular hemoglobin concentration measurement ( mass/volume) 33 g/dL 32-36 Automated erythrocyte distribution width ratio 13.4 % 10.0-14.5 Automated blood platelet count (count/volume) 302 10*3/uL 130-400 Automated blood platelet mean volume measurement 10.2 [foz_us] 7.4-10.4 Automated blood neutrophils/100 leukocytes 53 % 42-75 Automated blood lymphocytes/100 leukocytes 35 % 12-44 Blood monocytes/100 leukocytes 8 % 0-12 Automated blood eosinophils/100 leukocytes 2 % 0-10 Automated blood basophils/100 leukocytes 1 % 0-10 Blood neutrophils automated count (number/volume) 2.6 10*3 1.8-7.8 Blood lymphocytes automated count (number/volume) 1.7 10*3 1.0-4.0 Blood monocytes automated count (number/volume) 0.4 10*3 0.0-1.0 Automated eosinophil count 0.1 10*3/uL 0.0-0.3 Automated blood basophil count (count/volume) 0.1 10*3/uL 0.0-0.1 Whole blood basic metabolic panel - 02/26/16 05:06 Serum or plasma sodium measurement (moles/volume) 138 mmol/L 135-145 Serum or plasma potassium measurement (moles/volume) 3.2 mmol/L 3.6-5.0 Serum or plasma chloride measurement (moles/volume) 110 mmol/L 98-107 Carbon dioxide 16 mmol/L 21-32 Serum or plasma anion gap determination (moles/volume) 12 mmol/L 5-14 Serum or plasma urea nitrogen measurement (mass/volume) 2 mg/dL 7-18 Serum or plasma creatinine measurement (mass/volume) 0.50 mg/dL 0.60-1.30 Serum or plasma urea nitrogen/creatinine mass ratio 4 NRG Serum or plasma creatinine measurement with calculation of estimated glomerular filtration rate > NRG Serum or plasma glucose measurement (mass/volume) 68 mg/dL 70-105 Serum or plasma calcium measurement (mass/volume) 8.0 mg/dL 8.5-10.1 Serum or plasma phosphate measurement (mass/volume) - 02/26/16 05:06 Serum or plasma phosphate measurement (mass/volume) 2.9 mg/dL 2.3-4.7 Magnesium - 02/26/16 05:06 Magnesium 1.7 mg/dL 1.8-2.4 Complete blood count (CBC) with automated white blood cell (WBC) differential - 04/08/16 21:35 Blood leukocytes automated count (number/volume) 6.3 10*3/uL 4.3-11.0 Blood erythrocytes automated count (number/volume) 4.28 10*6/uL 4.35-5.85 Venous blood hemoglobin measurement (mass/volume) 12.5 g/dL 13.3-17.7 Blood hematocrit (volume fraction) 38 % 40-54 Automated erythrocyte mean corpuscular volume 88 [foz_us] 80-99 Automated erythrocyte mean corpuscular hemoglobin (mass per erythrocyte) 29 pg 25-34 Automated erythrocyte mean corpuscular hemoglobin concentration measurement ( mass/volume) 33 g/dL 32-36 Automated erythrocyte distribution width ratio 15.9 % 10.0-14.5 Automated blood platelet count (count/volume) 239 10*3/uL 130-400 Automated blood platelet mean volume measurement 10.2 [foz_us] 7.4-10.4 Automated blood neutrophils/100 leukocytes 75 % 42-75 Automated blood lymphocytes/100 leukocytes 11 % 12-44 Blood monocytes/100 leukocytes 7 % 0-12 Automated blood eosinophils/100 leukocytes 5 % 0-10 Automated blood basophils/100 leukocytes 1 % 0-10 Blood neutrophils automated count (number/volume) 4.8 10*3 1.8-7.8 Blood lymphocytes automated count (number/volume) 0.7 10*3 1.0-4.0 Blood monocytes automated count (number/volume) 0.5 10*3 0.0-1.0 Automated eosinophil count 0.3 10*3/uL 0.0-0.3 Automated blood basophil count (count/volume) 0.1 10*3/uL 0.0-0.1 Comprehensive metabolic panel - 04/08/16 21:35 Serum or plasma sodium measurement (moles/volume) 138 mmol/L 135-145 Serum or plasma potassium measurement (moles/volume) 3.7 mmol/L 3.6-5.0 Serum or plasma chloride measurement (moles/volume) 105 mmol/L 98-107 Carbon dioxide 21 mmol/L 21-32 Serum or plasma anion gap determination (moles/volume) 12 mmol/L 5-14 Serum or plasma urea nitrogen measurement (mass/volume) 5 mg/dL 7-18 Serum or plasma creatinine measurement (mass/volume) 0.71 mg/dL 0.60-1.30 Serum or plasma urea nitrogen/creatinine mass ratio 7 NRG Serum or plasma creatinine measurement with calculation of estimated glomerular filtration rate > NRG Serum or plasma glucose measurement (mass/volume) 99 mg/dL 70-105 Serum or plasma calcium measurement (mass/volume) 9.0 mg/dL 8.5-10.1 Serum or plasma total bilirubin measurement (mass/volume) 0.6 mg/dL 0.1-1.0 Serum or plasma alkaline phosphatase measurement (enzymatic activity/volume) 84 U/L 40-136 Serum or plasma aspartate aminotransferase measurement (enzymatic activity/ volume) 18 U/L 5-34 Serum or plasma alanine aminotransferase measurement (enzymatic activity/volume ) 10 U/L 0-55 Serum or plasma protein measurement (mass/volume) 7.9 g/dL 6.4-8.2 Serum or plasma albumin measurement (mass/volume) 3.8 g/dL 3.2-4.5 PT panel in platelet poor plasma by coagulation assay - 04/08/16 21:35 Prothrombin time (PT) in platelet poor plasma by coagulation assay 14.6 s 12.2-14.7 INR in platelet poor plasma or blood by coagulation assay 1.2 0.8-1.4 Blood lactic acid measurement (moles/volume) - 04/08/16 21:35 Blood lactic acid measurement (moles/volume) 1.3 mmol/L 0.5-2.0 Bacterial blood culture - 04/08/16 21:35 Bacterial blood culture NG NR Influenza virus A and B antigen detection - 04/08/16 21:49 FLU RESULT NEGATIVE FOR INFLUENZA A AND B ANTIGENS BY IA NR Bacterial blood culture - 04/08/16 21:52 Bacterial blood culture NG NR Complete urinalysis with reflex to culture - 04/08/16 22:45 Urine color determination YELLOW NRG Urine clarity determination CLEAR NRG Urine pH measurement by test strip 6 5-9 Specific gravity of urine by test strip 1.005 1.016- 1.022 Urine protein assay by test strip, semi-quantitative NEGATIVE NEGATIVE Urine glucose detection by automated test strip NEGATIVE NEGATIVE Erythrocytes detection in urine sediment by light microscopy NEGATIVE NEGATIVE Urine ketones detection by automated test strip NEGATIVE NEGATIVE Urine nitrite detection by test strip NEGATIVE NEGATIVE Urine total bilirubin detection by test strip NEGATIVE NEGATIVE Urine urobilinogen measurement by automated test strip (mass/volume) NORMAL NORMAL Urine leukocyte esterase detection by dipstick NEGATIVE NEGATIVE Automated urine sediment erythrocyte count by microscopy (number/high power field) NONE NRG Automated urine sediment leukocyte count by microscopy (number/high power field ) NONE NRG Bacteria detection in urine sediment by light microscopy NONE NRG Squamous epithelial cells detection in urine sediment by light microscopy RARE NRG Crystals detection in urine sediment by light microscopy NONE NRG Casts detection in urine sediment by light microscopy NONE NRG Mucus detection in urine sediment by light microscopy NEGATIVE NRG Complete urinalysis with reflex to culture NO NRG Lipase - 08/19/16 10:26 Lipase 73 U/L 8-78 Complete blood count (CBC) with automated white blood cell (WBC) differential - 01/17/17 21:20 Blood leukocytes automated count (number/volume) 5.8 10*3/uL 4.3-11.0 Blood erythrocytes automated count (number/volume) 4.88 10*6/uL 4.35-5.85 Venous blood hemoglobin measurement (mass/volume) 13.8 g/dL 13.3-17.7 Blood hematocrit (volume fraction) 42 % 40-54 Automated erythrocyte mean corpuscular volume 86 [foz_us] 80-99 Automated erythrocyte mean corpuscular hemoglobin (mass per erythrocyte) 28 pg 25-34 Automated erythrocyte mean corpuscular hemoglobin concentration measurement ( mass/volume) 33 g/dL 32-36 Automated erythrocyte distribution width ratio 14.9 % 10.0-14.5 Automated blood platelet count (count/volume) 285 10*3/uL 130-400 Automated blood platelet mean volume measurement 10.0 [foz_us] 7.4-10.4 Automated blood neutrophils/100 leukocytes 62 % 42-75 Automated blood lymphocytes/100 leukocytes 24 % 12-44 Blood monocytes/100 leukocytes 8 % 0-12 Automated blood eosinophils/100 leukocytes 6 % 0-10 Automated blood basophils/100 leukocytes 1 % 0-10 Blood neutrophils automated count (number/volume) 3.6 10*3 1.8-7.8 Blood lymphocytes automated count (number/volume) 1.4 10*3 1.0-4.0 Blood monocytes automated count (number/volume) 0.5 10*3 0.0-1.0 Automated eosinophil count 0.3 10*3/uL 0.0-0.3 Automated blood basophil count (count/volume) 0.1 10*3/uL 0.0-0.1 PT panel in platelet poor plasma by coagulation assay - 01/17/17 21:20 Prothrombin time (PT) in platelet poor plasma by coagulation assay 13.6 s 12.2-14.7 INR in platelet poor plasma or blood by coagulation assay 1.0 0.8-1.4 Activated partial thromboplastin time (aPTT) in platelet poor plasma bycoagulation assay - 01/17/17 21:20 Activated partial thromboplastin time (aPTT) in platelet poor plasma bycoagulation assay 30 s 24-35 Blood lactic acid measurement (moles/volume) - 01/17/17 21:20 Blood lactic acid measurement (moles/volume) 0.67 mmol/L 0.50-2.00 Comprehensive metabolic panel - 01/17/17 21:20 Serum or plasma sodium measurement (moles/volume) 138 mmol/L 135-145 Serum or plasma potassium measurement (moles/volume) 4.1 mmol/L 3.6-5.0 Serum or plasma chloride measurement (moles/volume) 104 mmol/L 98-107 Carbon dioxide 24 mmol/L 21-32 Serum or plasma anion gap determination (moles/volume) 10 mmol/L 5-14 Serum or plasma urea nitrogen measurement (mass/volume) 8 mg/dL 7-18 Serum or plasma creatinine measurement (mass/volume) 0.82 mg/dL 0.60-1.30 Serum or plasma urea nitrogen/creatinine mass ratio 10 NRG Serum or plasma creatinine measurement with calculation of estimated glomerular filtration rate > NRG Serum or plasma glucose measurement (mass/volume) 75 mg/dL 70-105 Serum or plasma calcium measurement (mass/volume) 9.2 mg/dL 8.5-10.1 Serum or plasma total bilirubin measurement (mass/volume) 1.1 mg/dL 0.1-1.0 Serum or plasma alkaline phosphatase measurement (enzymatic activity/volume) 74 U/L 40-136 Serum or plasma aspartate aminotransferase measurement (enzymatic activity/ volume) 25 U/L 5-34 Serum or plasma alanine aminotransferase measurement (enzymatic activity/volume ) 17 U/L 0-55 Serum or plasma protein measurement (mass/volume) 8.4 g/dL 6.4-8.2 Serum or plasma albumin measurement (mass/volume) 4.0 g/dL 3.2-4.5 Magnesium - 01/17/17 21:20 Magnesium 2.2 mg/dL 1.8-2.4 Serum or plasma amylase measurement (enzymatic activity/volume) - 01/17/17 21: 20 Serum or plasma amylase measurement (enzymatic activity/volume) 31 U /L 25-125 Lipase - 01/17/17 21:20 Lipase 31 U/L 8-78 Bacterial blood culture - 01/17/17 21:20 QUANTITY OF GROWTH Isolated NRG Bacterial blood culture [id number] NRG Bacterial blood culture - 01/17/17 21:26 Bacterial blood culture NG NRG Complete urinalysis with reflex to culture - 01/17/17 21:38 Urine color determination YELLOW NRG Urine clarity determination CLEAR NRG Urine pH measurement by test strip 7 5-9 Specific gravity of urine by test strip 1.005 1.016- 1.022 Urine protein assay by test strip, semi-quantitative NEGATIVE NEGATIVE Urine glucose detection by automated test strip NEGATIVE NEGATIVE Erythrocytes detection in urine sediment by light microscopy NEGATIVE NEGATIVE Urine ketones detection by automated test strip NEGATIVE NEGATIVE Urine nitrite detection by test strip NEGATIVE NEGATIVE Urine total bilirubin detection by test strip NEGATIVE NEGATIVE Urine urobilinogen measurement by automated test strip (mass/volume) 1 mg/dL NORMAL Urine leukocyte esterase detection by dipstick NEGATIVE NEGATIVE Automated urine sediment erythrocyte count by microscopy (number/high power field) NONE NRG Automated urine sediment leukocyte count by microscopy (number/high power field ) NONE NRG Bacteria detection in urine sediment by light microscopy NONE NRG Crystals detection in urine sediment by light microscopy NONE NRG Casts detection in urine sediment by light microscopy NONE NRG Mucus detection in urine sediment by light microscopy TRACE NRG Complete urinalysis with reflex to culture NO NRG Encounters ACCT No. Visit Date/Time Discharge Status Pt. Type Provider Facility Loc./Unit Complaint [id number] 05/25/2017 08:59:00 05/25/2017 09:37:00 DIS Outpatient JANAK ALFONSO MD [facility] PREOP EGD [id number] 04/30/2017 13:54:00 04/30/2017 23:59:59 CLS Preadmit BARMATY GRIGGS DO [facility] RAD UPPER BACK PAIN, ABNORMAL MRI [id number] 04/27/2017 07:50:00 04/27/2017 23:59:59 CLS Outpatient MATY FORD DO [facility] RAD MID BACK PAIN [id number] 04/14/2017 10:41:00 04/14/2017 23:59:59 CLS Preadmit BARNIDGE DO, MATY Simmons [facility] RAD MID BACK PAIN M54.9 [id number] 03/18/2017 12:00:00 03/18/2017 23:59:59 CLS Preadmit VAISHNAVI MURILLO MD [facility] RAD M54.5 [id number] 02/10/2017 11:00:00 02/10/2017 14:36:00 DIS Outpatient LADARIUS MELGOZA MD [facility] REHAB MOVEMENT DISORDER; CHRONIC BACK PAIN [id number] 01/17/2017 20:32:00 01/17/2017 23:20:00 DIS Emergency JADA RIVERA DO [facility] ER R SIDE PAIN [id number] 12/15/2016 11:29:00 12/16/2016 00:01:00 DIS Outpatient LADARIUS MELGOZA MD [facility] REHAB MOVEMENT DISORDER; CHRONIC BACK PAIN [id number] 10/23/2016 17:47:00 10/23/2016 19:44:00 DIS Emergency WARREN ARCOS MD [facility] ER TOOTH INFECTION [id number] 08/19/2016 10:11:00 08/19/2016 23:59:59 CLS Outpatient IMAN GUNDERSON APRN [facility] LAB PANCREATITIS [id number] 04/08/2016 21:21:00 04/08/2016 23:20:00 DIS Emergency [employer] [facility] ER FEVER [id number] 04/06/2016 11:06:00 04/06/2016 13:10:00 DIS Emergency LETA SUTTON [facility] ER FEEDING TUBE CAME OUT [id number] 04/05/2016 13:15:00 04/05/2016 15:14:00 DIS Emergency [employer] [facility] ER FEEDING TUBE FELL OUT [id number] 03/25/2016 11:10:00 03/25/2016 23:59:59 CLS Outpatient CINTHIA HOLLIS DO [facility] SDC [id number] 02/22/2016 01:36:00 02/26/2016 13:50:00 DIS Inpatient DAMIÁN GOLDBERG MD [facility] 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 [id number] 11/29/2015 09:04:00 11/29/2015 13:20:00 DIS Outpatient JANAK ALFONSO MD [facility] SDC MALFUNCTIONING G-TUBE [id number] 11/28/2015 09:45:00 11/28/2015 09:57:00 DIS Outpatient JANAK ALFONSO MD [facility] PREOP MALFUNCTIONING T-TUBE [id number] 10/23/2015 16:07:00 10/25/2015 08:15:00 DIS Inpatient CINTHIA HOLLIS DO [facility] 4TH SEPTIC SHOCK;PNEUMONIA LLL;POSS.GI BLEEDING [id number] 09/08/2015 18:51:00 09/12/2015 13:02:00 DIS Inpatient JANAK ALFONSO MD [facility] 4TH ACUTE PERITOUITIS [id number] 09/06/2015 12:01:00 09/06/2015 15:15:00 DIS Outpatient JANAK ALFONSO MD [facility] SDC MALNUTRITION [id number] 09/05/2015 08:25:00 09/05/2015 10:56:00 DIS Outpatient JANAK ALFONSO MD [facility] PREOP MALNUTRITION [id number] 07/26/2015 22:50:00 07/27/2015 13:36:00 DIS Inpatient DAMIÁN GOLDBERG MD [facility] ICU NARCOTIC OVERDOSE, HYPOTENSION,R UE CELLULITIS [id number] 06/25/2015 15:45:00 07/08/2015 16:21:00 DIS Outpatient LADARIUS MELGOZA MD [facility] REHAB WEAKNESS [id number] 05/16/2015 10:45:00 05/19/2015 00:01:00 DIS Outpatient LADARIUS MELGOZA MD [facility] REHAB WEAKNESS [id number] 03/21/2015 12:38:00 04/23/2015 13:42:00 DIS Outpatient LADARIUS MELGOZA MD [facility] REHAB DYSPHAGIA,NONCLOSING VOCAL CORDS [id number] 02/15/2015 11:21:00 02/15/2015 23:59:59 CLS Outpatient LADARIUS MELGOZA MD [facility] RAD SEE ORDER [id number] 02/12/2015 10:16:00 02/13/2015 00:01:00 DIS Outpatient LADARIUS MELGOZA MD [facility] REHAB WEAKNESS [id number] 01/24/2015 13:03:00 02/13/2015 00:01:00 DIS Out[facility]NONCLOSING VOCAL CORDS [id number] 12/18/2014 14:59:00 12/18/2014 18:20:00 DIS Emergency LETA SUTTON [facility] ER SOA [id number] 09/08/2014 14:51:00 09/10/2014 10:10:00 DIS Inpatient BRENDAN BA DO [facility] SURGICAL INTRACTABLE VOMITING;KETOSIS [id number] 08/03/2014 15:14:00 08/06/2014 20:22:00 DIS Inpatient RAINE HARTLEY, RUFUS Simmons [facility] IRF MARIANO Li [id number] 08/01/2014 17:40:00 08/03/2014 14:54:00 DIS Inpatient AMMY HARTLEY, RADHA Moya [facility] 4TH PROGRESSIVE BILAT LE WEAKNESS,LEG PAIN [id number] 02/15/2014 13:50:00 02/21/2014 00:01:00 DIS Outpatient LADARIUS MELGOZA MD [facility] REHAB DECREASING STRENGTH, POOR BALANCE,MOVEMENT DISORDER [id number] 02/02/2014 09:51:00 02/02/2014 11:18:00 DIS Emergency JUAN JOSE BLAS APRN [facility] ER LEFT EARACHE/DRAINAGE [id number] 11/03/2013 10:41:00 11/14/2013 00:01:00 DIS Outpatient [facility] AND POOR BALANCE [id number] 11/07/2013 17:12:00 11/08/2013 16:31:00 DIS Outpatient JANAK ALFONSO MD [facility] DYSPHAGIA WITH COUGH AND REPORTED FEVER [id number] 09/26/2013 19:28:00 09/26/2013 21:01:00 DIS Emergency PAULINE MCCLELLAND MD [facility] ER WEAKNESS,BACK PAIN, L LEG NUMBNESS [id number] 05/25/2013 10:02:00 05/25/2013 23:59:59 CLS Outpatient LADARIUS MELGOZA MD [facility] RAD TREMORS,ESSENTIAL VS TREMORS [id number] 04/04/2013 14:10:00 04/05/2013 15:00:00 DIS Outpatient INOCENCIA JULES MD [facility] URETEOLITHIASIS, N/V [id number] 03/31/2013 18:00:00 03/31/2013 20:41:00 DIS Emergency MIGUEL DOJAAD K [facility] ER VOMITTING [id number] 03/30/2013 14:30:00 03/30/2013 19:13:00 DIS Emergency LETA SUTTON [facility] ER ABD PAIN/VOMITING UTI SYMPTOMS [id number] 05/27/2017 09:30:00 PEN Preadmit NIKOLAY HARTLEY, JOSEPH Webb [facility] 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
== END 2017-05-26 14:38 | disposition home or self-care (01) ==
LOC: ENDO 11:10
PROVIDERS: ATTEND Surgery
DX: K21.0 Gastro-esophageal reflux disease with esophagitis (principal); K22.2 Esophageal obstruction; K29.70 Gastritis, unspecified, without bleeding; G24.01 Drug induced subacute dyskinesia; Z87.820 Personal history of traumatic brain injury; Z87.442 Personal history of urinary calculi; Z88.0 Allergy status to penicillin; Z88.1 Allergy status to other antibiotic agents; Z88.8 Allergy status to other drugs, medicaments and biological substances; Z99.3 Dependence on wheelchair

== ENCOUNTER → 2017-06-10 | Outpatient (CLI) | payer MEDICAID ==
[2017-06-10] MEDS: GADOBUTROL 7.5 MMOL/7.5 ML (GADAVIST) VIAL IV ONE (11:32)
--- NOTE | 2017-06-10 12:06 | Diagnostic Imaging Report ---
CLINICAL INDICATION: Patient has been having headaches. Patient took one dose of antidepressant medication in 2010 and has never been the same since. Patient has difficulty speaking at times, difficulty walking at times. Patient fully understands what is said to him, but unable to communicate other than blinking once for yes at times. EXAM: MRI of the brain performed without and with 7 cc of Gadavist IV contrast. Sequences include axial DWI, ADC map, axial gradient echo, axial T2, axial FLAIR, axial T1, axial T1 post IV contrast, coronal T1 fat-sat post IV contrast, and sagittal T1 post IV contrast. COMPARISON: MRI of the brain performed without contrast dated 05/25/2013. FINDINGS: There is no evidence of acute cerebral infarct, intracranial hemorrhage, or gross mass effect. Stable nonspecific few focal areas of high T2 signal involving the subcortical deep white matter regions of both frontal lobes. The largest one measures 4 mm in the parasagittal right frontal lobe region. Again seen small calcifications along the falx cerebri. There is normal jauregui-white matter distinction. The brain parenchymal volume appears appropriate for patient's age. There is no significant midline shift or herniation. [place] vascular structures show no gross abnormality as visualized. The pituitary gland, sella, and suprasellar regions are unremarkable as visualized. There is no evidence of hydrocephalus. The basal cisterns are unremarkable. The skull, extracranial soft tissue, and orbits are unremarkable. There is mild mucosal thickening involving the left maxillary sinus, sphenoid sinus, and ethmoid sinus. IMPRESSION: Stable MRI of the brain with no evidence of interval acute process. Dictated by: Dictated on workstation # [id number]
== END ==
LOC: RAD 10:50
PROVIDERS: ATTEND Pediatrics
DX: G83.5 Locked-in state (principal)
CPT/HCPCS: 70553

== ENCOUNTER → 2017-06-24 | Outpatient (CLI) | payer MEDICAID ==
[~2017-06-24] MED LIST changes: +BARIUM SUSPENSION 105% (LIQUID POLIBAR PLUS) 240 ML/DOSE PO ONE
--- NOTE | 2017-06-24 15:58 | Diagnostic Imaging Report ---
INDICATION: Traumatic brain injury, dysphagia. COMPARISON: None. EXAMINATION: Barium swallow study. Limited examination was performed. FINDINGS: The visualized esophagus is normal. The patient experienced a significant aspiration event during the procedure, therefore the examination was stopped. Patient was not administered a barium tablet. IMPRESSION: Aspiration of barium into the upper airway. Recommend Speech Pathology evaluation. Dictated by: Dictated on workstation # [id number]
== END ==
LOC: RAD 09:23
PROVIDERS: ATTEND Pediatrics
DX: S06.9X0A Unspecified intracranial injury without loss of consciousness, initial encounter (principal)
CPT/HCPCS: 74220

== ENCOUNTER 2017-09-26 21:02 | Observation (INO) | payer MEDICAID ==
[~2017-09-26] VITALS: Ht 198.1 cm; Wt 75.5 kg
[~2017-09-26 21:02] MED LIST changes: -BARIUM SUSPENSION 105% (LIQUID POLIBAR PLUS) 240 ML/DOSE PO ONE
--- OUTSIDE RECORDS SUMMARY | 2017-09-26 21:08 | XMS REPORT | Encounter Summary ---
Author Author [facility] Organization [facility] Address Unknown Phone Unavailable Care Team Providers Care Register Repairer Name Role Phone Nae Santana MD PCP Unavailable Sudhir Mosher MD Unavailable Nito Parker MD Unavailable Encounter Details Date Type Department Care Team Description 08/27/2017 Ancillary Rad Outpatient, Radiologist Diagnosis unknown Orders [address] [place] [address] Social History Tobacco Use Types Packs/Day Years Used Date Never Smoker Smokeless Tobacco: Never Used Alcohol Use Drinks/Week oz/Week Comments No Sex Assigned at Date Recorded Not on file as of this encounter Plan of Treatment Not on fileas of this encounter Results * MRI HEAD EXTERNAL IMAGING (06/10/2017) Narrative This order has been auto finalized and does not contain a result. in this encounter Visit Diagnoses Diagnosis Diagnosis unknown Other unknown and unspecified cause of morbidity or mortality
--- OUTSIDE RECORDS SUMMARY | 2017-09-26 21:08 | XMS REPORT | Continuity of Care Document ---
Author Author [facility] Organization [facility] Address Unknown Phone Unavailable Care Team Providers Care Log Deck Tender Name Role Phone [employer] Unavailable Unavailable Problems Medications Allergies, Adverse Reactions, Alerts Immunizations Results Vital Signs Encounters Location Location Details Encounter Type Encounter Number Reason For Visit Attending Provider ADM Date DC Date Status Source O [id number] AUGUST JAIR 12/19/2010 12/19/2010 Active [facility] OUTPATIENT [id number] MARY DELGADO 08/13/2017 Active [facility] O LUCY METCALF 11/10/2017 Active [facility] Procedures Plan of Care Social History Assessment and Plan Family History Advance Directives Functional Status
--- OUTSIDE RECORDS SUMMARY | 2017-09-26 21:08 | XMS REPORT | Clinical Summary ---
Author Author [facility] Organization [facility] Address Unknown Phone Unavailable Care Team Providers Care Judge Name Role Phone Nae Santana MD PCP Unavailable Sudhir Mosher MD Unavailable Nito Parker MD Unavailable Source Comments Some departments are not documenting in the electronic medical record. If you do not see the information that you expected, contact Release of Information in the Health Information Management department at [phone] for further assistance in locating additional records.[facility] Allergies Active Allergy Reactions Severity Noted Date Comments Penicillin G EDEMA 02/11/2011 Quetiapine SEE COMMENTS 02/11/2011 Swallowing problems Azithromycin HIVES 02/11/2011 Current Medications Prescription Sig. Disp. Refills Start End Date Status Date HYDROcodone/acetaminophen Take 1 Tab by mouth every Active (+) (VICODIN) 10/325 mg 6 hours as needed. PO tablet amitriptyline (ELAVIL) 25 Take 50 mg by mouth at Active mg PO tablet bedtime daily. zolpidem (AMBIEN) 10 mg Take 10 mg by mouth at Active PO tablet bedtime as needed. ALPRAZolam (XANAX) 1 mg Take 0.25 mg by mouth Active tablet three times daily as needed. oxyCODONE/acetaminophen Take 1 tablet by mouth Active (PERCOCET; ENDOCET) three times daily 10/325 mg tabletIndications: PAIN oxyCODONE SR (OXYCONTIN) Take 40 mg by mouth daily Active 40 mg tablet oxyCODONE (OXYCONTIN) 30 Take 30 mg by mouth daily Active mg tablet pantoprazole DR Take 40 mg by mouth Active (PROTONIX) 40 mg tablet daily. gabapentin (NEURONTIN) Take 300 mg by mouth Active 300 mg capsule twice daily. DEXILANT 60 mg capsule Take 1 capsule by mouth 1 07/23/19 Active daily. 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 Neurological disorder 02/17/2011 Overview: Unknown neurological disorder with multiple deficits Dysarthria 02/17/2011 Encounters Date Type Specialty Care Team Description 08/27/2017 Ancillary Radiology Outpatient, Radiologist Diagnosis unknown Orders 08/26/2017 Telephone Neurology Dario Simon, Results (MRI imaging) 08/13/2017 Clinical Neurology Dario Simon Dysarthria; Support Dysphagia, neurologic; Neurologic dysphonia; Neurological disorder 08/13/2017 Office Visit Neurology Dario Simon Dysarthria (Primary Dx); Neurological disorder; Dysphagia, neurologic; Neurologic dysphonia 07/08/2017 Telephone Neurology Emmanuel Blank MD Appointment Question (New Referral appt 10/08/2017 @2:15 Pm) 07/07/2017 Telephone Neurology Emmanuel Blank MD Appointment Question (Referral from Dr Luna Perea) from Last 3 Months Family History Medical History Relation Name Comments Diabetes Father Migraines Mother Stroke Mother Allergy-severe Neg Hx Anemia Neg Hx Anesthetic Complication Neg Hx Asthma Neg Hx Defect Neg Hx Blood Clots Neg Hx Dizziness Neg Hx Growth/Development Neg Hx Disorders Hearing Loss Neg Hx Heart Attack Neg Hx High Cholesterol Neg Hx Hypertension Neg Hx Seizures Neg Hx Relation Name Status Comments Father Mother Social History Tobacco Use Types Packs/Day Years Used Date Never Smoker Smokeless Tobacco: Never Used Alcohol Use Drinks/Week oz/Week Comments No Sex Assigned at Date Recorded Not on file Last Filed Vital Signs Vital Sign Reading Time Taken Blood Pressure 119/78 08/13/2017 12:32 PM CDT Pulse 80 08/13/2017 12:32 PM CDT Temperature - - Respiratory Rate - - Oxygen Saturation - - Inhaled Oxygen - - Concentration Weight 73.8 kg (162 lb 12.8 oz) 08/13/2017 12:32 PM CDT Height 198.1 cm (6' 6") 08/13/2017 12:32 PM CDT Body Mass Index 18.81 08/13/2017 12:32 PM CDT Plan of Treatment Health Maintenance Due Date Last Done Comments PHYSICAL (COMPREHENSIVE) 1989 EXAM PERTUSSIS VACCINE 1993 HIV SCREENING 1997 TETANUS VACCINE 10/11/1999 INFLUENZA VACCINE 02/14/2018 Results * EMG ORDER (08/13/2017) Specimen Performing Laboratory IN CLINIC from Last 3 Months
--- OUTSIDE RECORDS SUMMARY | 2017-09-26 21:09 | XMS REPORT | Encounter Summary ---
Author Author [facility] Organization [facility] Address Unknown Phone Unavailable Care Team Providers Care Mate Fourth Name Role Phone Nae Santana MD PCP Unavailable Sudhir Mosher MD Unavailable Nito Parker MD Unavailable Reason for Referral * Consult, Test & Treat Status Reason Specialty Diagnoses / Referred By Referred To Procedures Contact Contact No Auth Needed Specialty Neurology Diagnoses Janee Simon Neurology Cl Services Neurological MD YARA Bishop ON Required disorder [address] [facility] [address], [address] [facility] neurolog[facility] [place], [place] Neurologic [phone] dysphonia Phone: Fax: Scheduling Instructions Contact Phone Numbers for each area if questions arise: General: [phone] Epilepsy: [phone] Multiple Sclerosis: 1-281 Parkinson's: 9-3078 [facility] Memory Clinic: [phone] Stroke & Neuromuscular: [address] [place]: [phone] Reason for Visit * Reason Comments Results MRI imaging Encounter Details Date Type Department Care Team Description 08/26/2017 Telephone [facility] Dario Simon, Results (MRI imaging) Physicians-Neurology MD [facility] [address] [facility] [address] [facility] [place] [address] [place], [place] [phone] Social History Tobacco Use Types Packs/Day Years Used Date Never Smoker Smokeless Tobacco: Never Used Alcohol Use Drinks/Week oz/Week Comments No Sex Assigned at Date Recorded Not on file as of this encounter Miscellaneous Notes * Telephone Encounter - Whitney Hou LPN - 09/06/2017 12:31 PM CDT Loraine notified of referral to [facility] clinic stating understanding and agreement. She will be contacted later in the week to schedule apt for Rafael * Telephone Encounter - Whitney Hou LPN - 08/26/2017 12:47 PM CDT I spoke with the radiology department and they are to cloud the MRI images of the brain from June 10 * Telephone Encounter - Whitney Hou MARLA - 08/26/2017 12:38 PM CDT ----- Message from Dominguez Earl LPN sent at 08/13/2017 3:05 PM CDT ----- Dr. Simon Wednesday patient, forwarding to Whitney. 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 So far I have only the reports but I think looking at the MRI images would be very helpful. The last MRI was at [facility] on 2016. Would it be possible to have them send over the data, or put it on the cloud. Loraine, the patient's broadcast technician (she has permission to take calls) may be able to help as a contact. Thanks. in this encounter Plan of Treatment Name Priority Associated Diagnoses Order Schedule AMB REFERRAL TO NEUROLOGY Routine Neurological disorder Ordered: 2017 Dysphagia, neurologic Neurologic dysphonia as of this encounter Visit Diagnoses Diagnosis Neurological disorder - Primary Unspecified disorders of nervous system Dysphagia, neurologic Other dysphagia Neurologic dysphonia Other voice and resonance disorders
--- OUTSIDE RECORDS SUMMARY | 2017-09-26 21:09 | XMS REPORT | Encounter Summary ---
Author Author [facility] Organization [facility] Address Unknown Phone Unavailable Care Team Providers Care Pharmaceutical Physician Name Role Phone Nae Santana MD PCP Unavailable Sudhir Mosher MD Unavailable Nito Parker MD Unavailable Reason for Visit * Reason Comments Appointment Question New Referral appt 10/08/2017 @2:15 Pm Encounter Details Date Type Department Care Team Description 07/08/2017 Telephone [facility] Emmanuel Blank MD Appointment Question (New Physicians-Neurology [address] [facility] Referral appt 10/08/2017 [facility] ON [place] 2012 @2:15 Pm) [address] [place] [address] [place], [place] [phone] Social History Tobacco Use Types Packs/Day Years Used Date Never Smoker Smokeless Tobacco: Never Used Alcohol Use Drinks/Week oz/Week Comments No Sex Assigned at Date Recorded Not on file as of this encounter Miscellaneous Notes * Telephone Encounter - Marcella Pryor LPN - 07/08/2017 12:58 PM CARTON WAXING MACHINE OPERATOR Per Dr Blank patient was scheduled for new referal appointment on 10/08/17 at 2:[address] Gayathri Garay. in this encounter Plan of Treatment Not on fileas of this encounter Visit Diagnoses Not on filein this encounter
--- OUTSIDE RECORDS SUMMARY | 2017-09-26 21:09 | XMS REPORT | Encounter Summary ---
Author Author [facility] Organization [facility] Address Unknown Phone Unavailable Care Team Providers Care Broom Worker Name Role Phone Nae Santana MD PCP Unavailable Sudhir Mosher MD Unavailable Nito Parker MD Unavailable Reason for Visit * Reason Comments Appointment Question Referral from Dr Luna Perea Encounter Details Date Type Department Care Team Description 07/07/2017 Telephone [facility] Emmanuel Blank MD Appointment Question Physicians-Neurology [address] [facility] (Referral from Dr Luna [facility] MS 2011) [address] [place] [address] [place], [place] [phone] Social History Tobacco Use Types Packs/Day Years Used Date Never Smoker Smokeless Tobacco: Never Used Alcohol Use Drinks/Week oz/Week Comments No Sex Assigned at Date Recorded Not on file as of this encounter Miscellaneous Notes * Telephone Encounter - Marcella Pryor LPN - 07/07/2017 8:25 AM LOG YARD DERRICK OPERATOR Dr Perea Is calling to speak with Dr Blank,and claims that he turn down/ refused a referral from her for patient Rafael Dos Santos ,please contact her as soon as you are available at [phone] Thank you. in this encounter Plan of Treatment Not on fileas of this encounter Visit Diagnoses Not on filein this encounter
--- OUTSIDE RECORDS SUMMARY | 2017-09-26 21:09 | XMS REPORT | Encounter Summary ---
Author Author [facility] Organization [facility] Address Unknown Phone Unavailable Care Team Providers Care Compliance Spec Name Role Phone Nae Santana MD PCP Unavailable Sudhir Mosher MD Unavailable Nito Parker MD Unavailable Reason for Visit * Reason Comments Test/procedure Encounter Details Date Type Department Care Team Description 08/13/2017 Clinical [facility] [place], [place], Dysarthria; Support Physicians-Neurology Dysphagia, neurologic; [facility] [address] [facility] Neurologic dysphonia; [address] [place] [address] Neurological disorder [place], [place] [phone] Social History Tobacco Use Types Packs/Day Years Used Date Never Smoker Smokeless Tobacco: Never Used Alcohol Use Drinks/Week oz/Week Comments No Sex Assigned at Date Recorded Not on file as of this encounter Plan of Treatment Not on fileas of this encounter Visit Diagnoses Diagnosis Dysarthria Dysphagia, neurologic Other dysphagia Neurologic dysphonia Other voice and resonance disorders Neurological disorder Unspecified disorders of nervous system
--- OUTSIDE RECORDS SUMMARY | 2017-09-26 21:09 | XMS REPORT ---
Author Author SALLY ORDOÑEZ [facility] Address Unknown Care Team Providers Care Master Baker Name Role Phone SALLY ORDOÑEZ Unavailable PROBLEMS Type Condition ICD9-CM Code NHO67-DD Code Onset Dates Condition Status SNOMED Code Problem Chronic GERD K21.9 Active 183379676 Problem Chronic pain disorder G89.4 Active 568676432 Problem Neuropathy G62.9 Active 971615132 Problem Insomnia, unspecified type G47.00 Active 597831882 Problem Mild persistent asthma without complication J45.30 Active 463827608 Problem Other hammer toe(s) (acquired), right foot M20.41 Active 027283785 Problem Other hammer toe(s) (acquired), left foot M20.42 Active 38810289 Problem Low testosterone in male E29.1 Active 7986817715815 Problem Anxiety F41.9 Active 40883261 Problem 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 Active 478596461 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 59140015 ALLERGIES Substance Reaction Event Type Date Status Amoxicillin Unknown Non Drug Allergy September, Active ENCOUNTERS Encounter Location Date Diagnosis [facility] [id number] [place] [address]- [address] Oct, [facility] [address] [place] [address] [id number] Aug, [facility] [id number] [place] [address] 80051- 5767 Jul, [facility] [id number] [place] [address] 31821- 9629 Jul, Onychomycosis B35.1 ; Other hammer toe(s) (acquired), left foot M20.42 and Other hammer toe(s) (acquired), right foot M20.41 [facility] [address] [place] [address] Jul, [facility] [id number] [place] [address] 22645- 6735 Jul, 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 [facility] [id number] [place] [address] 69361- 0216 Jul, [facility] [address] [address]- [address] Jun, [facility] [id number] [place] [address] 75649- 4513 Jun, 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 ; Low testosterone in male E29.1 ; Chronic pain disorder G89.4 and 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 [facility] [id number] [place] [address] 37724- 0225 Jun, [facility] [address] [id number] 19 Jun, 2017 Dental examination Z01.20 [facility] [id number] [place] [address] 04969- 4798 19 Jun, 2017 Dental examination Z01.20 [facility] [id number] [place] [address] 23726- 4607 19 Jun, 2017 Fever, unspecified fever cause R50.9 ; Dental caries K02.9 ; Tobacco use Z72.0 ; Otalgia of both ears H92.03 and Impacted cerumen of both ears H61.23 [facility] [id number] [place] [address] 33385- 7069 18 Jun, 2017 [facility] [address] [address]- [address] 12 Jun, 2017 [facility] [id number] [place] [address] 24694- 9507 07 Jun, 2017 [facility] [address] [address]- 9162 Jun, [facility] [id number] [place] [address] 92503- 0329 Jun, [facility] [id number] [place] [address] 673685- 4540 Jun, Chronic pain disorder G89.4 ; Insomnia, unspecified type G47.00 ; Chronic GERD K21.9 ; 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 and 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 [facility] [id number] [place] [address] 22882- 2936 May, [facility] [id number] [place] [address] 34822- 5923 May, [facility] [id number] [place] [address] 97371- 9008 May, [facility] [id number] [place] [address] 46388- 9625 May, [facility] [id number] [place] [address] 67408- 7223 May, Aspiration pneumonia of right upper lobe due to regurgitated food J69.0 [facility] [address] [place] [address] 94392- 4699 May, [facility] [id number] [place] [address] 41606- 7487 May, [facility] [address] [place] [address] 43464- 8200 May, [facility] [id number] [place] [address] 98722- 4708 May, [facility] [id number] [place] [address] 03249- 0346 May, [facility] [address] [address] 29 Dec, 2017 Cough R05 and Pneumonia of right middle lobe due to infectious organism J18.1 [facility] [address] [facility] [id number] [address] Apr, [facility] [address] [facility] [id number] [place] [address] 20830- 0126 Apr, Mid back pain M54.9 [facility] [address] 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 [id number], [place] [address] Apr, [address] [id number] [id number] Apr, [facility] [id number] [address]- [address] Apr, [facility] [id number] [place] [address] 67323- 7555 Apr, [facility] [id number] [place] [address] 85010- 4788 Apr, Mid back pain M54.9 [facility] [address] [facility] [id number] [place] [address] 57929- 9100 Apr, [facility] [id number] [address] Apr, [facility] [id number] [address]- 7[address] Apr, [facility] [id number] [address]- 9566 Apr, [facility] [address] [facility] [id number], [place] [address]- 0[address] Apr, [facility] [id number], [place] [address]- 60[address] Apr, [facility] [id number] [address]- 6[address] Mar, [facility] [id number] [place] [address] 93376- 8571 Mar, [facility] [id number] [place] [address] 84475- 9993 Mar, [facility] [id number] [place] [address] 88324- 5143 Mar, Mid back pain M54.9 and Muscle spasm M62.838 [facility] [address] [facility] [id number] [place] [address] 68927- 6549 16 Mar, 2017 [facility] [id number] [place] [address] 59631- 0086 Mar, [facility] [id number] [place] [address] 09280- 5777 Mar, [facility] [id number] [place] [address] 57274- 3983 Mar, [facility] [address] [place] [address] 90888- 3244 Mar, [facility] [id number] [place] [address] 71526- 8390 Mar, [facility] [address] [place] [address] 07515- 6628 Mar, [facility] [id number] [place] [address] 91658- 4060 Mar, [facility] [id number], [place] [address]- 26[address] Feb, [facility] [id number] [place] [address] 59195- 8284 Feb, Low back pain, unspecified back pain laterality, unspecified chronicity, with sciatica presence unspecified M54.5 [facility] [address] [place] [address] 43302- 5551 Feb, Low back pain, unspecified back pain laterality, unspecified chronicity, with sciatica presence unspecified M54.5 [facility] [address] [place] [address] 76715- 2738 17 Feb, 2017 Mild persistent asthma without complication J45.30 [facility] [address] [place] [address] 98642- 0680 16 Feb, 2017 [place] [id number] [place] [address] 59896- 8727 10 Feb, 2017 Cerebral palsy, unspecified type G80.9 ; Anxiety F41.9 ; Neuropathy G62.9 ; Chronic pain disorder G89.4 ; Insomnia, unspecified type G47.00 ; Chronic GERD K21.9 ; Mild persistent asthma without complication J45.30 ; Low testosterone in male E29.1 ; Establishing care with new doctor, encounter for Z76.89 and Onychomycosis B35.1 [facility] [address] [place] [address] [id number] September, Dental examination Z01.20 [place] [id number] [place] [address] 74514- 8814 Mar, IMMUNIZATIONS No Known Immunizations SOCIAL HISTORY Never Assessed REASON FOR VISIT walk in pain PLAN OF CARE Activity Details Follow Up prn Reason:as needed VITAL SIGNS MEDICATIONS Medication Instructions Dosage Frequency Start Date End Date Duration Status Gabapentin 300 MG Active Pantoprazole Sodium 40 MG Active Melatonin 3 MG Active Clindamycin HCl 150 MG Orally every 6 hrs 2 capsules 6h 7 days Active Zolpidem Tartrate 10 MG Active Dexilant 60 MG Active Advair HFA Active Alprazolam 1 MG Active Amitriptyline HCl 25 MG Active Oxycodone-Acetaminophen 10-325 MG Active RESULTS No Results PROCEDURES Procedure Date Ordered Result Body Site LTD ORAL EVALUATION - PROBLEM FOCUS October 07, 2016 INTRAORL-PERIAPICAL 1 FILM 30683 October 07, 2016 INSTRUCTIONS MEDICATIONS ADMINISTERED No Known Medications MEDICAL (GENERAL) HISTORY Type Description Date Medical History anxiety Medical History Severe pain back/rt shoulder/ bilateral legs Surgical History cholecystectomy 2015 Surgical History right shoulder surgery Surgical History dilated throat 2017 Hospitalization History cholecystectomy 2016
--- OUTSIDE RECORDS SUMMARY | 2017-09-26 21:09 | XMS REPORT | Encounter Summary ---
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 * Consult, Test & Treat (Routine) Status Reason Specialty Diagnoses / Referred By Referred To Procedures Contact Contact No Auth Needed Neurology Diagnoses Luna Gresham Farmakidis, locked in MD Dario MD syndrome [address] [facility] [address] [facility] [place], [place] rocedures [phone] NEW PATIENT Phone: Fax: Encounter Details Date Type Department Care Team Description 08/13/2017 Office Visit [facility] Dario Delgado, Dysarthria (Primary Dx); Physicians-Neurology Neurological disorder; [facility] [address] [facility] Dysphagia, neurologic; [address] [place] [address] Neurologic dysphonia [place], [place] [phone] [id number] [phone] Social History Tobacco Use Types Packs/Day Years Used Date Never Smoker Smokeless Tobacco: Never Used Alcohol Use Drinks/Week oz/Week Comments No Sex Assigned at Date Recorded Not on file as of this encounter Last Filed Vital Signs Vital Sign Reading [...] Mass Index 18.81 08/13/2017 12:32 PM CDT in this encounter Progress Notes * Dario Delgado MD - 08/13/2017 12:30 PM CDT Formatting of this note may be different from the original. Date of Service: 08/13/2017 Subjective: Rafael Dos Santos is a 36 y.o. male. History of Present Illness Mr. Dos Santos is a 36 yo man that presents for an additional evaluation for a neurologic condition that appears to have started in 2008. He was last at his neurologic baseline in 2008. Up until then he been well. 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 He was in a relationship and had 3 children at the time. He did not have tremor, weakness, or stiffness. This history is given primarily from a friend and caregiver, Loraine. 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 As part of his training he self injected with anabolic steroids and and insulin. During that period, the patient and his caregiver are quite clear that there was no history of drug abuse including methamphetamines, opioids or other substances. The precise circumstances of what happened is uncertain. Loraine notes that Mr. Dos Santos was fine until taking one dose of seroquel one evening. Loraine mentions that the patient may have used insulin as well, and possibly taken a very large dose. The amount of seroquel and or insulin that was used is unknown.Then the next morning the patient's tongue was swollen, his speech was slurred, but he could walk. Over years he experienced gradual neurologic loss of function. He had right side numbness, stiffness, tremor, and then loss of the ability enunciate or swallow well. He had a feeding tube placement, developed sepsis, it was removed, and the patient has expressed clearly and repeatedly that he doesn't want to get another feeding tube. The patient was seen by Dr. Santana and Dr. Faria at this center and no clear diagnosis was made. This was around 2009. These notes are not available for review in [facility]. In subsequent years there was concern that the environment he was in was not optimal for recovery. His partner suffered from addiction and was not able to provide optimal care. Currently Ms. Dos Santos is at home. He can walk 5-7 steps forward but is quite unstable. He pays attention and follows conversation. Responds to yes / no questions. He can express his needs. He goes to the bathroom by himself. Needs help pulling up his pants. He needs helps with dressing. He needs helps with bathing. He watches TV and enjoys it. He also listens to music. FH Has 2 sisters and 1 brother. None of whom have any similar neurologic problems. SH Rare Etoh Chews tobacco. Does not smoke. Does not use recreation drugs. WORK UP TO DATE 2010 TSH wnl RPR non-reactive CBC wnl ESR 8 CPK 47 Copper 1.15 wnl CMP wnl cerruloplasmin 24.6 (15-30) ARIEL <80 04/27/2018 MRI brain MRI T spine MRI L spine MEDS -he also takes alprazolam 1 mg TID, for anxiety and relaxation. MRI imaging: MRI thoracic spine 04/27/2017: There are nonspecific multiple patchy and focal areas of low T1 and slightly high T2 signal lesions throughout the thoracic spine and visualized cervical spine. Metastatic disease should be excluded. Clinical correlation for history of cancer is suggested. MRI lumbar spine 04/27/2017: Degenerative changes in the lower lumbar spine with high-grade lateral recess stenosis bilaterally at L4, L5 and on the left side at L5, S1. MRI brain with contrast 06/10/2017: There was no evidence of acute cerebral infarct, intracranial hemorrhage or gross mass-effect. Stable nonspecific few focal areas of high T2 signal involving the subcortical deep white matter regions of both frontal lobes. The largest one measures 4 mm in the parasagittal right frontal lobe region. Again seen small calcifications along the falx cerebri. There is normal jauregui-white matter distinction. The brain parenchyma volume appears appropriate for the patient's age. There is no specific midline shift or herniation the rest of the exam is otherwise unremarkable. The overall impression for this MRI was that it was essentially stable with no evidence of interval acute event or progression. Review of Systems HENT: Positive for drooling and trouble swallowing. Musculoskeletal: Positive for back pain, joint swelling, neck pain and neck stiffness. All other systems reviewed and are negative. Objective: ALPRAZolam (XANAX) 1 mg tablet Take 0.25 mg by mouth three times daily as needed. amitriptyline (ELAVIL) 25 mg PO tablet Take 50 mg by mouth at bedtime daily. DEXILANT 60 mg capsule Take 1 capsule by mouth daily. gabapentin (NEURONTIN) 300 mg capsule Take 300 mg by mouth twice daily. HYDROcodone/acetaminophen(+) (VICODIN) 10/325 mg PO tablet Take 1 Tab by mouth every 6 hours as needed. oxyCODONE (OXYCONTIN) 30 mg tablet Take 30 mg by mouth daily oxyCODONE SR (OXYCONTIN) 40 mg tablet Take 40 mg by mouth daily oxyCODONE/acetaminophen (PERCOCET; ENDOCET) 10/325 mg tablet Take 1 tablet by mouth three times daily pantoprazole DR (PROTONIX) 40 mg tablet Take 40 mg by mouth daily. zolpidem (AMBIEN) 10 mg PO tablet Take 10 mg by mouth at bedtime as needed. Vitals: 08/13/17 1232 BP: 119/78 Pulse: 80 Weight: 73.8 kg (162 lb 12.8 oz) Height: 198.1 cm (78") Body mass index is 18.81 kg/m. Physical Exam GENERAL EXAM: GEN: thin, masked facies, increased tone throughout. Presents in a wheelchair. EXTREMITIES: notable hammer toes bilaterally. SKIN: violaceous skin hue in the toes. NEUROLOGIC EXAMINATION Mental status: Awake. Visually attends. Answers yes no questions by blinking for yes and staring ahead for no. He is able to show 2 fingers on request. He can very very slowly also touch his nose. He is also able to show his left year. He is able to blink three times in a row. He can mouth words pretty clearly and accurately when counting fingers. Cranial Nerves: II: Visual henry are full. Pupils equal, round and reactive to light Funduscopic exam: III, IV, : choppy pursuits. End gaze horizontal nystagmus. Difficulty initiating saccades. CN V: normal face sensation CN VII: masked facies CN VIII: hearing intact to conversation CN IX, X: Clearly not able to easily move secretions. Has a wet cough and audible pooling. Limited speech. Dysarthric and hoarse. CN XI: CN XII: tongue midline, no atrophy Motor: Bulk: decreased bulk in the hands Tone: Increased tone R>L side. Cogwheelig. Abnormal movements: rest tremor in the both legs, both wrists and in the fingers. The right first is clench and dystonic. Very bradykinetic with overflow tremor in the hands and lower lip Muscles Neck flexors 5 Neck extensors 5 Upper Extremity Muscle Right Left Lower Extremity Muscle Right Left Shoulder abductors 5 5 Hip flexors 5 5 Elbow flexors 5 5 Hip extensor Elbow extensors 5 5 Hip abductors Wrist flexors Hip adductors Wrist extensors 5 5 Knee flexors Knee extensors 5 5 Finger abductors 5 5 Ankle dorsiflexors 5 5 Finger extensors Ankle plantar flexors 5 5 Distal finger flex (dig 2,3) Ankle inversion Distal finger flex (dig 4,5) Ankle eversion Thumb abduction (APB) Toe flexors Thumb flexion (FPL) EHL (great toe ext) Sensory: Pinprick: present, further exam limited. Temperature: diminished distally. Light touch: intact Vibration: (seconds at the great toe) Right: Left can feel vibration, but limited exam Proprioception (great toes): intact Coordination: Reflexes: Right Left Triceps 2++ 2++ Biceps 2++ 2++ Brachioradialis 2++ 2++ Patella 2++ 2++ Ankle 3 beats 2 beat of clonus Plantar Responses Jaw jerk: Soto sign: absent Station and Gait: Able to stand: kyphotic, knees partially bent, unstable. Very stiff gait. 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 EMG addendum: Normal motor and sensory nerve conduction studies (aside from low amplitude peroneal at the TA, but not the EDB. Needle EMG showed tremor in certain muscles, compatible with the exam and decreased activation. The above electrophysiologic data supports the clinical impression that localization of this condition is in the central nervous system. PLAN -Would like to review the brain MRI of Frances Kee. Will attempt to obtain the images. -If after reviewing the images, there is continued suspicion for an extrapyramidal syndrome, will then refer to the movement disorders clinic for an addition opinion. -We will contact Loraine after reviewing the imaging data. If she had not heard from use in 4 weeks, I asked to call us for an update. . TIME SPENT I spent _60_ minutes face to face with this patient. Over half of this time I spent counseling the patient on diagnostic results, my impressions and recommendations, as well as the risks, and benefits of management options as described. in this encounter Miscellaneous Notes * Addendum Note - Dario Delgado MD - 08/13/2017 12:30 PM CDT Addended by: DARIO DELGADO on: 08/20/2017 12:46 PM Modules accepted: Orders in this encounter Plan of Treatment Not on fileas of this encounter Visit Diagnoses Diagnosis Dysarthria - Primary Neurological disorder Unspecified disorders of nervous system Dysphagia, neurologic Other dysphagia Neurologic dysphonia Other voice and resonance disorders
--- NOTE | 2017-09-26 21:11 | ED General ---
General Stated Complaint: FEVER/R SIDE PAIN Source of Information: Caregiver, Family Exam Limitations: No Limitations History of Present Illness Date Seen by Provider: September 26, 2017 Time Seen by Provider: 21:08 Initial Comments Wheelchair-bound nonverbal patient presents to ER accompanied by father and caregiver with reports of fever and complaints of right-sided pain about one hour ago. He did have several left maxillary teeth pulled earlier this week and family is concerned this may be the source of fever. He has had a cough as well and does have a history of aspiration. He's had a significant and progressive decline in physical condition following what was initially believed to be a dyskinesia after taking Seroquel years ago. However, his cognitive impairment has worsened progressively over the years and there would be likely an undiagnosed neurodegenerative disease present as well. Timing/Duration: 1 Hour Severity: Moderate Associated Systoms: Cough, Fever/Chills Allergies and Home Medications Allergies Coded Allergies: Penicillins (Verified Allergy, Mild, 05/26/17) azithromycin (Verified Allergy, Mild, 05/26/17) quetiapine fumarate (Verified Allergy, Unknown, 05/26/17) Home Medications Alprazolam 1 Mg Tablet, 1 MG PO QID, (Reported) Amitriptyline HCl 25 Mg Tablet, 50 MG PO HS, (Reported) TAKE 2 (25MG) TABS Cefdinir 300 Mg Capsule, 300 MG PO BID Prescribed by: JUAN JOSE BLAS on 09/26/172237 Dexlansoprazole 60 Mg , 60 MG PO HS, (Reported) Gabapentin 300 Mg Capsule, 300 MG PO BID, (Reported) Metronidazole 500 Mg Tablet, 500 MG PO TID Prescribed by: JUAN JOSE BLAS on 09/26/172237 Oxycodone HCl/Acetaminophen 1 Each Tablet, 1 TAB PO TID PRN for BREAKTHROUGH PAIN, (Reported) Pantoprazole Sodium 40 Mg Tablet., 40 MG PO DAILY, (Reported) Patient Home Medication List Home Medication List Reviewed: Yes Review of Systems Constitutional: see HPI, chills, fever EENTM: see HPI Respiratory: see HPI, cough Cardiovascular: chest pain Gastrointestinal: abdominal pain Genitourinary: no symptoms reported Musculoskeletal: no symptoms reported Skin: no symptoms reported Psychiatric/Neurological: No Symptoms Reported Hematologic/Lymphatic: No Symptoms Reported Immunological/Allergic: no symptoms reported Past Rlitkzs-Okiqvm-Spgpnw Hx Patient Social History Type Used: Smokeless Tobacco 2nd Hand Smoke Exposure: No Recent Foreign Travel: No Contact w/Someone Who Travel: No Recent Hopitalizations: No Immunizations Up To Date Tetanus Booster (TDap): Unknown PED Vaccines UTD: Yes Date of Pneumonia Vaccine: May 17, 2009 Date of Influenza Vaccine: Jul 11, 2014 Seasonal Allergies Seasonal Allergies: No Past Medical History Surgeries: Yes (EGD WITH DILATION, PEG TUBE/ REMOVED, FROZEN SHOULDER; KIDNEY STONE REMOVAL) Abdominal, Gallbladder, Orthopedic, Renal Respiratory: Yes (BRONCHITIS/PNEUMONIA; CHRONIC COUGH) Pneumonia Currently Using CPAP: No Currently Using BIPAP: No Cardiac: No Neurological: Yes Reproductive Disorders: No Sexually Transmitted Disease: No Genitourinary: Yes Kidney Stones Gastrointestinal: Yes Gastroesophageal Reflux, Hiatal Hernia, Gall Bladder Disease Musculoskeletal: Yes (RIGHT SHOULDER FROZEN; CHRONIC PAIN ) Degenerate Disk Disease, Chronic Back Pain Endocrine: No HEENT: Yes (POOR DENTITION) Cancer: No Psychosocial: Yes Depression Integumentary: No Blood Disorders: No Family Medical History Dysphagia 19 MOTHER Family history: Arthritis 19 MOTHER Family history: Diabetes mellitus 19 FATHER Family history: Thyroid disorder 19 MOTHER Physical Exam Vital Signs Vital Signs - First Documented 09/26/17 21:09 Temp 102.2 Pulse 157 Resp 24 B/P (MAP) 107/75 (86) Pulse Ox 100 O2 Delivery Room Air Capillary Refill : General Appearance: No Apparent Distress, Chronically ill, Thin, Other ( Nonverbal, moans upon palpation of the abdomen. Temperature 102, heart rate 152 , blood pressure 140 systolic.) Eyes: Bilateral Eye Normal Inspection, Bilateral Eye PERRL, Bilateral Eye EOMI HEENT: PERRL/EOMI, TMs Normal Neck: Full Range of Motion, Normal Inspection Respiratory: Normal Breath Sounds, No Accessory Muscle Use, No Respiratory Distress Cardiovascular: Normal Peripheral Pulses, Tachycardia Gastrointestinal: Normal Bowel Sounds, Soft Extremity: Normal Capillary Refill, Normal Inspection Neurologic/Psychiatric: Alert Skin: Normal Color, Warm/Dry Focused Exam Lactate Level 09/26/17 21:18: Lactic Acid Level 1.49 Lactic Acid Level Laboratory Tests Test 09/26/17 21:18 Lactic Acid Level 1.49 MMOL/L (0.50-2.00) Procedures/Interventions Date of ETT Placement: Feb 22, 2016 Time of ETT Placement: 0053 Progress/Results/Core Measures Suspected Sepsis SIRS Temperature: Pulse: Respiratory Rate: Laboratory Tests 09/26/17 21:18: White Blood Count 7.8 Blood Pressure / Mean: 09/26/17 21:18: Lactic Acid Level 1.49 Laboratory Tests 09/26/17 21:18: Creatinine 0.82, Platelet Count 235, Total Bilirubin 1.0 Results/Orders Lab Results Laboratory Tests Test 09/26/17 21:18 09/26/17 22:08 Range/Units White Blood Count 7.8 4.3-11.0 10^3/uL Red Blood Count 4.57 4.35-5.85 10^6/uL Hemoglobin 13.4 13.3-17.7 G/DL Hematocrit 38 L 40-54 % Mean Corpuscular Volume 84 80-99 FL Mean Corpuscular Hemoglobin 29 25-34 PG Mean Corpuscular Hemoglobin Concent 35 32-36 G/DL Red Cell Distribution Width 15.0 H 10.0-14.5 % Platelet Count 235 130-400 10^3/uL Mean Platelet Volume 10.0 7.4-10.4 FL Neutrophils (%) (Auto) 84 H 42-75 % Lymphocytes (%) (Auto) 7 L 12-44 % Monocytes (%) (Auto) 5 0-12 % Eosinophils (%) (Auto) 3 0-10 % Basophils (%) (Auto) 0 0-10 % Neutrophils # (Auto) 6.6 1.8-7.8 X 10^3 Lymphocytes # (Auto) 0.6 L 1.0-4.0 X 10^3 Monocytes # (Auto) 0.4 0.0-1.0 X 10^3 Eosinophils # (Auto) 0.3 0.0-0.3 10^3/uL Basophils # (Auto) 0.0 0.0-0.1 10^3/uL Neutrophils % (Manual) 72 % Lymphocytes % (Manual) 11 % Monocytes % (Manual) 2 % Eosinophils % (Manual) 2 % Band Neutrophils 11 % Reactive Lymphocytes 2 % Clumped Platelets SLIGHT Poikilocytosis SLIGHT Microcytosis SLIGHT Elliptocytes SLIGHT Sodium Level 140 135-145 MMOL/L Potassium Level 3.9 3.6-5.0 MMOL/L Chloride Level 106 98-107 MMOL/L Carbon Dioxide Level 24 21-32 MMOL/L Anion Gap 10 5-14 MMOL/L Blood Urea Nitrogen 8 7-18 MG/DL Creatinine 0.82 0.60-1.30 MG/DL Estimat Glomerular Filtration Rate > 60 BUN/Creatinine Ratio 10 Glucose Level 87 70-105 MG/DL Lactic Acid Level 1.49 0.50-2.00 MMOL/L Calcium Level 9.4 8.5-10.1 MG/DL Total Bilirubin 1.0 0.1-1.0 MG/DL Aspartate Amino Transf (AST/SGOT) 17 5-34 U/L Alanine Aminotransferase (ALT/SGPT) 9 0-55 U/L Alkaline Phosphatase 77 40-136 U/L Total Protein 8.2 6.4-8.2 GM/DL Albumin 4.1 3.2-4.5 GM/DL Urine Color YELLOW Urine Clarity CLEAR Urine pH 7 5-9 Urine Specific [place] 1.005 L 1.016-1.022 Urine Protein NEGATIVE NEGATIVE Urine Glucose (UA) NEGATIVE NEGATIVE Urine Ketones NEGATIVE NEGATIVE Urine Nitrite NEGATIVE NEGATIVE Urine Bilirubin NEGATIVE NEGATIVE Urine Urobilinogen NORMAL NORMAL MG/DL Urine Leukocyte Esterase NEGATIVE NEGATIVE Urine RBC (Auto) NEGATIVE NEGATIVE Urine RBC NONE /HPF Urine WBC NONE /HPF Urine Squamous Epithelial Cells RARE /HPF Urine Crystals NONE /LPF Urine Bacteria NEGATIVE /HPF Urine Casts NONE /LPF Urine Mucus NEGATIVE /LPF Urine Culture Indicated NO Micro Results Microbiology 09/26/17 Influenza Types A,B Antigen (EMANUEL) - Final, Complete My Orders Orders - JUAN JOSE BALS APRN Cbc With Automated Diff (09/26/17 21:07) Comprehensive Metabolic Panel (09/26/17 21:07) Ua Culture If Indicated (09/26/17 21:07) Blood Culture (09/26/17 21:07) Lactic Acid Analyzer (09/26/17 21:07) Chest 1 View, Ap/Pa Only (09/26/17 21:07) Iv Heplock-Insert (Order) (09/26/17 21:07) Fentanyl Injection (Sublimaze Injection (09/26/17 21:30) Ns Iv 1000 Ml (Sodium Chloride 0.9%) (09/26/17 21:30) Acetaminophen Tablet (Tylenol Tablet) (09/26/17 21:30) Ct Abd/Pelv W (Appendicitis) (09/26/17 21:21) Fentanyl Injection (Sublimaze Injection (09/26/17 21:18) Ns Iv 1000 Ml (Sodium Chloride 0.9%) (09/26/17 21:18) Iohexol Injection (Omnipaque 350 Mg/Ml 1 (09/26/17 21:45) Ns (Ivpb) (Sodium Chloride 0.9%) (09/26/17 21:45) Ondansetron Injection (Zofran Injectio (09/26/17 21:45) Manual Differential (09/26/17 21:18) Ondansetron Injection (Zofran Injectio (09/26/17 21:33) Meropenem (Merrem 1000 Mg) (09/26/17 21:45) Influenza A And B Antigens (09/26/17 21:46) Hydromorphone Injection (Dilaudid Inje (09/26/17 22:15) Meropenem (Merrem 500 Mg) (09/26/17 21:58) Ns (Ivpb) (Sodium Chloride 0.9% Ivpb Bag (09/26/17 21:58) Hydromorphone Injection (Dilaudid Inject (09/26/17 22:05) Ns Iv 1000 Ml (Sodium Chloride 0.9%) (09/26/17 23:00) Medications Given in ED Current Medications Medications Dose Ordered Sig/Carter Route Start Time Stop Time Status Last Admin Dose Admin Acetaminophen 1,000 mg ONCE ONCE PO 09/26/17 21:30 09/26/17 21:31 DC 09/26/17 21:30 1,000 MG Fentanyl Citrate 50 mcg ONCE ONCE IVP 09/26/17 21:30 09/26/17 21:31 DC 09/26/17 21:26 50 MCG Hydromorphone HCl 0.5 mg ONCE ONCE IV 09/26/17 22:15 09/26/17 22:16 DC 09/26/17 22:11 0.5 MG Iohexol 100 ml ONCE ONCE IV 09/26/17 21:45 09/26/17 21:46 DC 09/26/17 21:49 100 ML Meropenem 1000 mg/ Sodium Chloride 100 ml @ 200 mls/hr ONCE ONCE IV 09/26/17 21:45 09/26/17 22:14 DC 09/26/17 22:12 200 MLS/HR Ondansetron HCl 8 mg ONCE ONCE IVP 09/26/17 21:45 09/26/17 21:46 DC 09/26/17 21:40 8 MG Sodium Chloride 250 ml ONCE ONCE IV 09/26/17 21:45 09/26/17 21:46 DC 09/26/17 21:49 80 ML Vital Signs/I&O 09/26/17 21:09 Temp 102.2 Pulse 157 Resp 24 B/P (MAP) 107/75 (86) Pulse Ox 100 O2 Delivery Room Air Capillary Refill : Diagnostic Imaging Diagonstic Imaging: Xray Plain Films/CT/US/NM/MRI: chest Comments NAME: NATALI [facility] REC#: [id number] PT STATUS: REG ER : 1980 PHYSICIAN: JUAN JOSE BLAS APRN ADMIT DATE: 09/26/17/ER Draft Date of Exam:09/26/17 CHEST 1 VIEW, AP/PA ONLY INDICATION: Lower respiratory infection Portable chest 9:28 PM There is interstitial infiltrate in the left perihilar region consistent with pneumonia. IMPRESSION: Left perihilar pneumonia. There is no effusion. Dictated on workstation # [id number] Dict: 09/26/172131 Trans: 09/26/172135 [facility] [id number] Interpreted by: PAULINE MARX MD Electronically signed by: Departure Communication (Admissions) Time/Spoke to Admitting Phy: 22:54 2142-chest x-ray shows a left perihilar pneumonia. Due to the patient's dysphagia and history of aspiration and aspiration pneumonia should be considered. His allergic to penicillin so Unasyn/Zosyn will not be used. 2238- CT scan preliminary report from stat read shows nodular airspace opacities within the lower lungs left greater than right likely inflammatory/ infectious process. Appendix not visualized. No stranding seen at the base of the cecum to suggest acute appendicitis. 2234- I did discuss the case with Dr. Sy. She agrees to admit observation status due to the tachycardia and patient's history. We will use Levaquin based on prior culture and sensitivity reports. Impression Primary Impression: Left perihilar pneumonia Disposition: ADMITTED INPATIENT Condition: Stable Admissions Decision to Admit Reason: Admit from ER (General) Decision to Admit/Date: September 26, 2017 Time/Decision to Admit Time: 22:54 Departure-Patient Inst. Decision time for Depature: 22:36 Referrals: [facility] (PCP/Family) Primary Care Physician Patient Instructions: Aspiration Pneumonia Add. Discharge Instructions: 1. Tylenol and Motrin for fever control 2. Antibiotics as directed concerning tomorrow 3. Call [facility] tomorrow to make an appointment to be seen tomorrow or Wednesday. Return to ER for any worsening. Scripts Metronidazole (Metronidazole) 500 Mg Tablet 500 MG PO TID, #21 TAB Prov: JUAN JOSE BLAS APRN 09/26/17 Cefdinir (Cefdinir) 300 Mg Capsule 300 MG PO BID, #14 CAP Prov: JUAN JOSE BLAS APRN 09/26/17 Copy Copies To 1: JOSEPH KOCH MD, PETER J APRN September 26, 2017 21:10
[2017-09-26] MEDS ORDERED: NS IV 1000 ML 1,000 ML ONE (21:18)
[2017-09-26] MEDS ORDERED: fentaNYL INJECTION 100 MCG/2 ML AMP ONE (21:18)
--- OUTSIDE RECORDS SUMMARY | 2017-09-26 21:18 | XMS REPORT | Continuity of Care Document ---
Author Author [facility] Organization [facility] Address Unknown Phone Unavailable Allergies Active Description Code Type Severity Reaction Onset Reported/Identified Relationship to Patient Clinical Status Yes PENICILLIN G POTASSIUM PENICILLIN G POTASSI SEVERE Yes ZITHROMAX ZITHROMAX SEVERE Yes PENICILLIN G POTASSIUM SEVERE DERMATOLOGICAL - YUMIKO Yes ZITHROMAX SEVERE DERMATOLOGICAL - YUMIKO Yes azithromycin [id number] Drug Allergy Mild N/A 05/26/2017 Yes Penicillins [id number] Drug Allergy Mild N/A 05/26/2017 Yes quetiapine fumarate [id number] Drug Allergy Unknown N/A 05/26/2017 Medications Medication Packaging Start Date Stop Date Route Dosage Sig IPRATROPIUM/ALBUTEROL INH SOLN INH 0 (DUO-NEB INH SOLN) MLS 04/11/2016 04/11/2016 ONCE&1855 FENTANYL AMP INJ 100 MCG/2CC MCG 04/11/2016 ONCE&1932 IPRATROPIUM/ALBUTEROL INH SOLN INH 0 (DUO-NEB INH SOLN) MLS 04/11/2016 04/18/2016 QID&0600,1100,1600,2100 FENTANYL AMP INJ 100 MCG/2CC MCG 04/11/2016 ONCE&2120 GABAPENTIN CAP 300 MG (NEURONTIN) MG 04/11/2016 04/18/2016 QID&0800,1200,1700,2200 FLUTICASONE/SALMETEROL MDI 250 /50MCG (ADVAIR DISKUS) PUFF 04/11/2016 04/18/2016 QID&0800,1200,1700,2200 ACETAMINOPHEN ORAL TABLET 325mg(Tylenol) MG 04/11/2016 04/21/2016 PRN EVERY 4 Hour OXYCODONE SUSTAINED RELEASE TAB 10 MG (OXYCONTIN) MG 04/12/2016 04/18/2016 BID&0800,2000 ALPRAZOLAM TAB 1 MG (XANAX) MG 04/21/2016 TID&0800,1400,2000 OXYCODONE/APAP 10MG/325MG TAB 0 (PERCOCET-10) TAB 04/12/2016 04/19/2016 PRN TID FLUTICASONE/SALMETEROL MDI 250 /50MCG (ADVAIR DISKUS) PUFF 04/12/2016 04/18/2016 Q12H&0800,2000 PANTOPRAZOLE TAB 40 MG (PROTONIX) MG 04/12/2016 04/18/2016 Daily&0900 CEFTRIAXONE PREMIX IV BAG IV 1 GM/50CC (ROCEPHIN PREMIX IV BAG) GM 04/12/2016 04/18/2016 Daily&2200 COMBIVENT RESPIMAT MDI 0 (COMBIVENT RESPIMAT) puff 04/12/2016 04/19/2016 QID&0600,1200,1800,2359 ZOLPIDEM TAB 10 MG (AMBIEN) MG 04/19/2016 PRN QHS AMITRIPTYLINE TAB 50 MG (ELAVIL) MG 04/12/2016 04/18/2016 QHS&2100 NORMAL SALINE 500CC IV BAG INJ 0.9 % (NS 500CC IV BAG) ml 04/14/2016 04/14/2016 ONCE&0713 NORMAL SALINE 500CC IV BAG INJ 0.9 % (NS 500CC IV BAG) ml 04/14/2016 04/14/2016 ONCE&0812 GUAIFENESIN TAB 600 MG (MUCINEX) MG 04/14/2016 04/21/2016 Q12H&0600,1800 POLYETHYLENE GLYCOL POWDER UD PWD 0 (MIRALAX 17GM UNIT DOSE PAKS) gm 04/14/2016 04/21/2016 BID&0800,2000 Fluarix Quad [id number] (PF) (Influenza [id number] 36mos up(PF)) IM syringe ML 04/15/2016 04/15/2016 ONCE&1000 PROMETHAZINE W/ CODEINE LIQ 0 (PHENERGAN) ml 04/15/2016 04/22/2016 PRN Q4H PNEUMONIA VACCINE INJ 0 (PREVNAR-13) ml 04/15/2016 04/15/2016 ONCE&1000 CEFUROXIME TAB 250 MG (CEFTIN) MG 04/15/2016 04/21/2016 BID&0800,2000 ACETAMINOPHEN TAB 500 MG (TYLENOL) MG 06/28/2016 06/28/2016 PRN ONCE NORMAL SALINE 1000CC IV BAG INJ 0.9 % (NS 1000CC IV BAG) ml 06/28/2016 06/28/2016 ONCE&1834 FENTANYL AMP INJ 100 MCG/2CC MCG 06/28/2016 ONCE&1900 NORMAL SALINE 1000CC IV BAG INJ 0.9 % (NS 1000CC IV BAG) ml 06/28/2016 06/28/2016 ONCE&2030 FENTANYL AMP INJ 100 MCG/2CC MCG 06/28/2016 ONCE&2132 METRONIDAZOLE TAB 500 MG (FLAGYL) MG 06/28/2016 06/28/2016 ONCE&2133 CEFTRIAXONE PREMIX IV BAG IV 1 GM/50CC (ROCEPHIN PREMIX IV BAG) GM 06/28/2016 06/28/2016 ONCE&2133 KETOROLAC VIAL INJ 30 MG/CC (TORADOL VIAL) MG 06/28/2016 06/28/2016 ONCE&2220 NOREPINEPHRINE INJ 4 MG/4CC (LEVOPHED) MG 06/28/2016 07/01/2016 CONTINUOUSEVERY 0 Hour LACTATED RINGERS 1000CC IV BAG INJ 0 ml 06/28/2016 07/05/2016 CONTINUOUSEVERY 0 Hour NORMAL SALINE 1000CC IV BAG INJ 0.9 % (NS 1000CC IV BAG) ml 06/28/2016 06/28/2016 ONCE&2340 FENTANYL AMP INJ 100 MCG/2CC MCG 08/01/2016 ONCE&1510 FENTANYL AMP INJ 100 MCG/2CC MCG 08/01/2016 ONCE&1702 NORMAL SALINE 1000CC IV BAG INJ 0.9 % (NS 1000CC IV BAG) ml 08/01/2016 08/01/2016 ONCE&1712 Problems Date Dx Coded Attending Type Code Diagnosis Diagnosed By 04/15/1341 LADARIUS HINDS MD Ot K44.9 04/15/1341 LADARIUS HINDS MD Ot R13.10 04/15/1435 LADARIUS HINDS MD Ot G81.91 HEMIPLEGIA, UNSPECIFIED AFFECTING RIGHT 04/15/1435 LADARIUS HINDS MD Ot R47.02 DYSPHASIA 04/15/1435 LADARIUS HINDS MD Ot R47.1 DYSARTHRIA AND ANARTHRIA 12/19/2009 [...] DO Ot 787.01 NAUSEA WITH VOMITING 04/05/2013 DHARA HARTLEY, INOCENCIA Webb Ot 591 HYDRONEPHROSIS 04/05/2013 DHARA HARTLEY, INOCENCIA Webb Ot 592.1 CALCULUS OF URETER 09/26/2013 PAULINE MCCLELLAND MD Ot 724.4 LUMBOSACRAL NEURITIS NOS 09/26/2013 PAULINE [...] E929.8 LATE EFF ACCIDENT NEC 11/14/2013 LADARIUS HINDS MD Ot 719.7 DIFFICULTY IN WALKING 11/14/2013 LADARIUS HINDS MD Ot 780.79 OTH MALAISE FATIGUE 11/14/2013 LADARIUS HINDS MD Ot V57.1 PHYSICAL THERAPY NEC 02/02/2014 JUAN JOSE BLAS MEASURING MACHINE TENDER Ot 382.00 AC SUPP OTITIS MEDIA NOS 02/02/2014 JUAN JOSE BLAS MEASURING MACHINE TENDER Ot 388.70 OTALGIA NOS 02/21/2014 LADARIUS HINDS MD Ot 719.7 DIFFICULTY IN WALKING 02/21/2014 LADARIUS HINDS MD Ot 780.79 OTH MALAISE FATIGUE 02/21/2014 LADARIUS HINDS MD Ot V57.1 PHYSICAL THERAPY NEC 08/03/2014 RADHA GIMENEZ MD Ot 724.02 SPINAL STENOSIS, LUMBAR REG, W/OUT NEURO 08/03/2014 HUERTER MD, RADHA F Ot 781.99 NERV/MUSCULOSKEL SYS SYMP NEC 08/03/2014 RADHA GIMENEZ MD Ot 787.20 DYSPHAGIA, UNSPECIFIED 08/03/2014 RADHA GIMENEZ MD Ot 724.02 08/03/2014 RADHA GIMENEZ MD Ot 781.99 08/03/2014 RADHA GIMENEZ MD Ot 787.20 08/06/2014 RAINE HARTLEY, RUFUS Simmons Ot 300.00 ANXIETY STATE NOS 08/06/2014 RAINE HARTLEY, RUFUS Simmons Ot 333.90 EXTRAPYRAMIDAL DIS NOS 08/06/2014 RAINE HARTLEY, RUFUS Simmons Ot 530.81 ESOPHAGEAL REFLUX 08/06/2014 RUFUS NI MD Ot 724.5 BACKACHE NOS 08/06/2014 RAINE HARTLEY, RUFUS Simmons Ot 787.22 DYSPHAGIA, OROPHARYNGEAL PHASE 08/06/2014 RAINE HARTLEY, RUFUS Simmons Ot V57.89 REHABILITATION PROC NEC 09/10/2014 BRENDAN [...] MD Ot 787.20 12/18/2014 Ot 724.02 12/18/2014 RHONA HARTLEY, LADARIUS Salvador Ot 781.0 12/18/2014 SANDRA PA, LETA L Ot 466.0 ACUTE BRONCHITIS 12/18/2014 LETA SUTTON Ot 780.60 FEVER, UNSPECIFIED 12/18/2014 LETA SUTTON Ot 786.05 SHORTNESS OF BREATH 12/18/2014 LETA SUTTON Ot 786.50 CHEST PAIN NOS 02/05/2015 LADARIUS HINDS MD Ot 780.79 02/05/2015 LADARIUS HINDS MD Ot V57.1 02/05/2015 LADARIUS HINDS MD Ot 553.3 02/05/2015 LADARIUS HINDS MD Ot 787.20 02/05/2015 LADARIUS HINDS MD Ot V57.3 02/13/2015 LADARIUS HINDS MD Ot 553.3 DIAPHRAGMATIC HERNIA 02/13/2015 LADARIUS HINDS MD Ot 787.20 DYSPHAGIA, UNSPECIFIED 02/13/2015 LADARIUS HINDS MD Ot V57.3 CARE INVOLVING SPEECH-LANGUAGE THERAPY 02/13/2015 LADARIUS HINDS MD Ot 780.79 OTH MALAISE FATIGUE 02/13/2015 LADARIUS HINDS MD Ot V57.1 PHYSICAL THERAPY NEC 02/13/2015 LADARIUS HINDS MD Ot 780.79 02/13/2015 LADARIUS HINDS MD Ot V57.1 02/15/2015 LADARIUS HINDS MD Ot 553.3 02/15/2015 LADARIUS HINDS MD Ot 787.20 02/15/2015 LADARIUS HINDS MD Ot V57.3 02/18/2015 LADARIUS HINDS MD Ot 780.79 02/18/2015 LADARIUS HINDS MD Ot V57.1 03/10/2015 LADARIUS HINDS MD Ot 553.3 03/10/2015 LADARIUS HINDS MD Ot 787.20 03/10/2015 LADARIUS HINDS MD Ot V57.3 03/10/2015 LADARIUS HINDS MD Ot R53.1 03/14/2015 LADARIUS HINDS MD Ot K44.9 03/14/2015 LADARIUS HINDS MD Ot R13.10 03/14/2015 LADARIUS HINDS MD Ot R53.1 04/01/2015 LADARIUS HINDS MD Ot K44.9 04/01/2015 LADARIUS HINDS MD Ot R13.10 04/01/2015 LADARIUS HINDS MD Ot R53.1 04/12/2015 RHONA HARTLEY, LADARIUS Salvador Ot R53.1 04/12/2015 LADARIUS HINDS MD Ot K44.9 04/12/2015 LADARIUS HINDS MD K Ot R13.10 04/23/2015 LADARIUS HINDS MD Ot K44.9 DIAPHRAGMATIC HERNIA WITHOUT OBSTRUCTION 04/23/2015 LADARIUS HINDS MD Ot R13.10 DYSPHAGIA, UNSPECIFIED 04/29/2015 LADARIUS HINDS MD K Ot R53.1 04/30/2015 RHONA HARTLEY, LADARIUS K Ot R53.1 05/16/2015 LADARIUS HINDS MD K Ot R53.1 05/19/2015 LADARIUS HINDS MD Ot R53.1 WEAKNESS 05/21/2015 LADARIUS HINDS MD K Ot R53.1 05/22/2015 RHONA HARTLEY, LADARIUS Salvador Ot 780.79 05/22/2015 RHONA HARTLEY, LADARIUS K Ot R53.1 05/22/2015 RHONA HARTLEY, LADARIUS Salvador Ot 780.79 05/22/2015 LADARIUS HINDS MD K Ot R53.1 06/14/2015 RHONA HARTLEY, LADARIUS K Ot 780.79 06/14/2015 RHONA HARTLEY, LADARIUS K Ot R53.1 07/01/2015 RHONA HARTLEY, LADARIUS K Ot 780.79 07/01/2015 RHONA HARTLEY, LADARIUS K Ot R53.1 07/04/2015 RHONA HARTLEY, LADARIUS K Ot 780.79 07/04/2015 RHONA HARTLEY, LADARIUS K Ot R53.1 07/08/2015 LADARIUS HINDS MD K Ot R53.1 WEAKNESS 07/27/2015 DAMIÁN GOLDBERG MD [...] E46 UNSPECIFIED PROTEIN-CALORIE MALNUTRITION 09/05/2015 JANAK ALFONSO MD, Ot Z01.818 ENCOUNTER FOR OTHER PREPROCEDURAL EXAMIN 09/05/2015 JANAK ALFONSO MD Ot E46 UNSPECIFIED PROTEIN-CALORIE MALNUTRITION 09/05/2015 JANAK ALFONSO MD, Ot Z01.818 ENCOUNTER FOR OTHER PREPROCEDURAL EXAMIN 09/05/2015 JANAK ALFONSO MD, Ot E46 UNSPECIFIED PROTEIN-CALORIE MALNUTRITION 09/05/2015 JANAK ALFONSO MD, Ot Z01.818 ENCOUNTER FOR OTHER PREPROCEDURAL EXAMIN 09/06/2015 Ot 724.02 SPINAL STENOSIS, LUMBAR REG, W/OUT NEURO 09/06/2015 LADARIUS HINDS MD Ot 781.0 ABN INVOLUN MOVEMENT NEC 09/06/2015 LADARIUS HINDS MD Ot R13.10 DYSPHAGIA, UNSPECIFIED 09/06/2015 JANAK ALFONSO MD Ot 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 09/06/2015 JANAK ALFONSO MD Ot K21.0 GASTRO-ESOPHAGEAL REFLUX DISEASE WITH ES 09/06/2015 JANAK ALFONSO MD Ot K29.70 GASTRITIS, UNSPECIFIED, WITHOUT BLEEDING 09/06/2015 JANAK ALFONSO MD Ot R13.10 DYSPHAGIA, UNSPECIFIED 09/08/2015 Ot 724.02 SPINAL STENOSIS, LUMBAR REG, W/OUT NEURO 09/08/2015 LADARIUS HINDS MD Ot 781.0 ABN INVOLUN MOVEMENT NEC 09/08/2015 LADARIUS HINDS MD Ot R13.10 DYSPHAGIA, UNSPECIFIED 09/09/2015 JANAK [...] ABSCESS OF ABDOMINAL WALL 09/11/2015 JANAK ALFONSO MD, Ot Z87.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 09/11/2015 JANAK ALFONSO MD, Ot Z93.1 GASTROSTOMY STATUS 09/12/2015 JANAK ALFONSO MD Ot E87.1 HYPO-OSMOLALITY AND HYPONATREMIA 09/12/2015 JANAK ALFONSO MD Ot F80.1 EXPRESSIVE LANGUAGE DISORDER 09/12/2015 JANAK ALFONSO MD Ot 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 09/12/2015 JANAK ALFONSO MD, Ot K21.9 GASTRO-ESOPHAGEAL REFLUX DISEASE WITHOUT 09/12/2015 JANAK ALFONSO MD Ot K29.70 GASTRITIS, UNSPECIFIED, WITHOUT BLEEDING 09/12/2015 JANAK ALFONSO MD Ot L02.211 CUTANEOUS ABSCESS OF ABDOMINAL WALL 09/12/2015 JANAK ALFONSO MD, Ot Z87.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 09/12/2015 JANAK ALFONSO MD, Ot Z93.1 GASTROSTOMY STATUS 09/12/2015 JANAK ALFONSO [...] ABSCESS OF ABDOMINAL WALL 09/12/2015 JANAK ALFONSO MD, Ot Z87.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 09/12/2015 JANAK ALFONSO MD Ot Z93.1 GASTROSTOMY STATUS 10/23/2015 Ot 724.02 SPINAL STENOSIS, LUMBAR REG, W/OUT NEURO 10/23/2015 LADARIUS HINDS MD Ot 781.0 ABN INVOLUN MOVEMENT NEC 10/23/2015 LADARIUS HINDS MD Ot R13.10 DYSPHAGIA, UNSPECIFIED 10/25/2015 TELMA DO CINTHIA Ot A41.9 SEPSIS, UNSPECIFIED ORGANISM 10/25/2015 TELMA DO CINTHIA Ot D64.9 ANEMIA, UNSPECIFIED 10/25/2015 TELMA DO CINTHIA Ot E43 UNSPECIFIED SEVERE PROTEIN-CALORIE MALNU 10/25/2015 TELMA DUARTE CINTHIA Ot E86.0 DEHYDRATION 10/25/2015 GAVIN HOLLIS DOI Ot 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 10/25/2015 TELMA DUARTE CINTHIA Ot G98.8 OTHER DISORDERS OF NERVOUS SYSTEM 10/25/2015 TELMA DUARTE CINTHIA Ot J69.0 PNEUMONITIS DUE TO INHALATION OF FOOD AN 10/25/2015 TELMA DUARTE CINTHIA Ot K21.9 GASTRO-ESOPHAGEAL REFLUX DISEASE WITHOUT 10/25/2015 TELMA DO CINTHIA Ot K44.9 DIAPHRAGMATIC HERNIA WITHOUT OBSTRUCTION 10/25/2015 TELMA DUARTE CINTHIA Ot R13.10 DYSPHAGIA, UNSPECIFIED 10/25/2015 TELMA DUARTE CINTHIA Ot 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 10/25/2015 TELMA DUARTE CINTHIA Ot Z93.1 GASTROSTOMY STATUS 11/28/2015 JANAK ALFONSO MD Ot K94.23 GASTROSTOMY MALFUNCTION 11/28/2015 JANAK ALFONSO MD Ot Z01.818 ENCOUNTER FOR OTHER PREPROCEDURAL EXAMIN 11/29/2015 Ot 724.02 SPINAL STENOSIS, LUMBAR REG, W/OUT NEURO 11/29/2015 LADARIUS HINDS MD Ot 781.0 ABN INVOLUN MOVEMENT NEC 11/29/2015 LADARIUS HINDS MD Ot R13.10 DYSPHAGIA, UNSPECIFIED 11/29/2015 JANAK ALFONSO MD, Ot E46 UNSPECIFIED PROTEIN-CALORIE MALNUTRITION 11/29/2015 JANAK ALFONSO MD Ot K21.0 GASTRO-ESOPHAGEAL REFLUX DISEASE WITH ES 11/29/2015 KIDO MD, TAKAAKI Ot K29.70 GASTRITIS, UNSPECIFIED, WITHOUT BLEEDING 11/29/2015 [...] DUE TO STREPTOCOCCUS PNEUMONIA 02/26/2016 DAMIÁN GOLDBERG MD, Ot J15.212 PNEUMONIA DUE TO METHICILLIN RESISTANT [...] STENOSIS, LUMBAR REG, W/OUT NEURO 04/05/2016 LADARIUS HINDS MD Ot 781.0 ABN INVOLUN MOVEMENT NEC 04/05/2016 LADARIUS HINDS MD Ot R13.10 DYSPHAGIA, UNSPECIFIED 04/05/2016 HOLLIS DO, CINTHIA Ot J15.212 PNEUMONIA DUE TO METHICILLIN RESISTANT S 04/05/2016 JUAN JOSE BLAS APRN Ot 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 04/05/2016 JUAN JOSE BLAS APRN Ot K94.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 GASTROSTOMY 04/05/2016 JUAN JOSE BLAS MEASURING MACHINE TENDER Ot Z79.899 OTHER MCC (CURRENT) DRUG THERAPY 04/06/2016 Ot 724.02 SPINAL STENOSIS, LUMBAR REG, W/OUT NEURO 04/06/2016 LADARIUS HINDS MD Ot 781.0 ABN INVOLUN MOVEMENT NEC 04/06/2016 LADARIUS HINDS MD Ot R13.10 DYSPHAGIA, UNSPECIFIED 04/06/2016 HOLLIS DO, CINTHIA Ot J15.212 PNEUMONIA DUE TO METHICILLIN RESISTANT S 04/06/2016 LETA SUTTON Ot 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 04/06/2016 LETA SUTTON Ot Z43.1 ENCOUNTER FOR ATTENTION TO GASTROSTOMY 04/06/2016 LETA SUTTON Ot Z79.899 OTHER CUTTER [employer] EDGE TRIMMER (CURRENT) DRUG THERAPY 04/07/2016 JUAN JOSE BLAS APRN Ot 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 04/07/2016 JUAN JOSE BLAS MEASURING MACHINE TENDER Ot K94.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 GASTROSTOMY 04/07/2016 JUAN JOSE BLAS MEASURING MACHINE TENDER Ot Z79.899 OTHER CUTTER AND EDGE TRIMMER (CURRENT) DRUG THERAPY 04/07/2016 JUAN JOSE BLAS APRN Ot 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 04/07/2016 JUAN JOSE BLAS APRN Ot K94.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 GASTROSTOMY 04/07/2016 JUA NJOSE BLAS APRN Ot Z79.899 OTHER [facility] (CURRENT) DRUG THERAPY 04/07/2016 LETA SUTTON Ot 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 04/07/2016 LETA SUTTON Ot Z43.1 ENCOUNTER FOR ATTENTION TO GASTROSTOMY 04/07/2016 LETA SUTTON Ot Z79.899 OTHER MCC (CURRENT) DRUG THERAPY 04/08/2016 JUAN JOSE BLAS APRN Ot 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 04/08/2016 JUAN JOSE BLAS APRN Ot R05 COUGH 04/08/2016 JUAN JOSE BLAS APRN Ot R50.9 FEVER, UNSPECIFIED 04/08/2016 JUAN JOSE BLAS MEASURING MACHINE TENDER Ot Z79.899 OTHER CUTTER AND EDGE TRIMMER (CURRENT) DRUG THERAPY 04/08/2016 JUAN JOSE BLAS APRN Ot Z93.1 GASTROSTOMY STATUS 04/10/2016 JUAN JOSE BLAS APRN Ot 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 04/10/2016 JUAN JOSE BLAS APRN Ot R05 COUGH 04/10/2016 JUAN JOSE BLAS MEASURING MACHINE TENDER Ot R50.9 FEVER, UNSPECIFIED 04/10/2016 JUAN JOSE BLAS MEASURING MACHINE TENDER Ot Z79.899 OTHER CUTTER AND EDGE TRIMMER (CURRENT) DRUG THERAPY 04/10/2016 JUAN JOSE BLAS MEASURING MACHINE TENDER Ot Z93.1 GASTROSTOMY STATUS 04/11/2016 Hemalatha Mckeon A 480.9 VIRAL PNEUMONIA, UNSPECIFIED 04/11/2016 Hemalatha Mckeon A J12.9 VIRAL PNEUMONIA, UNSPECIFIED 04/15/2016 Guillermina Mckeonica A 480.9 VIRAL PNEUMONIA, UNSPECIFIED 04/15/2016 Guillermina Mckeonica W 780.60 04/15/2016 Guillermina Mckeonica W 780.79 OTHER MALAISE AND FATIGUE 04/15/2016 Guillermina Mckeonica W 784.51 DYSARTHRIA 04/15/2016 Mike Hemalatha A J12.9 VIRAL PNEUMONIA, UNSPECIFIED 04/15/2016 Guillermina Mckeonica W R47.1 DYSARTHRIA AND ANARTHRIA 04/15/2016 Guillermina Mckeonica W R50.9 FEVER, UNSPECIFIED 04/15/2016 Guillermina Mckeonica W R53.83 OTHER FATIGUE 04/15/2016 Guillermina Mckeonica W V55.1 ATTENTION TO GASTROSTOMY 04/15/2016 Guillermina Mckeonerika Dietz Z43.1 ENCOUNTER FOR ATTENTION TO GASTROSTOMY 06/29/2016 Yevgeniy Mondragon 038.9 UNSPECIFIED SEPTICEMIA 06/29/2016 Yevgeniy Mondragon 486 PNEUMONIA, ORGANISM UNSPECIFIED 06/29/2016 Yevgeniy Mondragon 575.0 ACUTE CHOLECYSTITIS 06/29/2016 Yevgeniy Mondragon 780.60 FEVER, UNSPECIFIED 06/29/2016 Yevgeniy Mondragon A41.9 SEPSIS, UNSPECIFIED ORGANISM 06/29/2016 Yevgeniy Mondragon J18.9 PNEUMONIA, UNSPECIFIED ORGANISM 06/29/2016 Yevgeniy Mondragon K81.0 ACUTE CHOLECYSTITIS 06/29/2016 Yevgeniy Mondragon R50.9 FEVER, UNSPECIFIED 08/01/2016 Hemalatha Mckeon W 486 PNEUMONIA, ORGANISM UNSPECIFIED 08/01/2016 Nba Mckeonssica A 577.0 ACUTE PANCREATITIS 08/01/2016 Mike Hemalatha W 780.60 FEVER, UNSPECIFIED 08/01/2016 Mike Hemalatha W J18.9 PNEUMONIA, UNSPECIFIED ORGANISM 08/01/2016 MikeNbaHemalatha A K85.90 ACUTE PANCREATITIS WITHOUT NECROSIS OR INFECTION, UNSP 08/01/2016 MikeNbaHemalatha W R50.9 FEVER, UNSPECIFIED 08/28/2016 IMAN GUNDERSON APRN Ot K85.90 ACUTE PANCREATITIS WITHOUT NECROSIS OR I 09/15/2016 IMAN GUNDERSON APRN Ot K85.90 ACUTE PANCREATITIS WITHOUT NECROSIS OR I 09/18/2016 LADARIUS HINDS MD Ot G81.91 HEMIPLEGIA, UNSPECIFIED AFFECTING RIGHT 09/18/2016 LADARIUS HINDS MD Ot R47.02 DYSPHASIA 09/18/2016 LADARIUS HINDS MD Ot R47.1 DYSARTHRIA AND ANARTHRIA 09/21/2016 LADARISU HINDS MD Ot G81.91 HEMIPLEGIA, UNSPECIFIED AFFECTING RIGHT 09/21/2016 LADARIUS HINDS MD Ot R47.02 DYSPHASIA 09/21/2016 LADARIUS HINDS MD Ot R47.1 DYSARTHRIA AND ANARTHRIA 09/28/2016 IMAN GUNDERSON APRN Ot K85.90 ACUTE PANCREATITIS WITHOUT NECROSIS OR I 09/28/2016 LADARIUS HINDS MD Ot G81.91 HEMIPLEGIA, UNSPECIFIED AFFECTING RIGHT 09/28/2016 LADARIUS HINDS MD Ot R47.02 DYSPHASIA 09/28/2016 LADARIUS HINDS MD Ot R47.1 DYSARTHRIA AND ANARTHRIA 10/06/2016 LADARIUS HINDS MD Ot G81.91 HEMIPLEGIA, UNSPECIFIED AFFECTING RIGHT 10/06/2016 LADARIUS HINDS MD Ot R47.02 DYSPHASIA 10/06/2016 LADARIUS HINDS MD Ot R47.1 DYSARTHRIA AND ANARTHRIA 10/20/2016 LADARIUS HINDS MD Ot G81.91 HEMIPLEGIA, UNSPECIFIED AFFECTING RIGHT 10/20/2016 LADARIUS HINDS MD Ot R47.02 DYSPHASIA 10/20/2016 LADARIUS HINDS MD Ot R47.1 DYSARTHRIA AND ANARTHRIA 10/23/2016 LADARIUS HINDS MD Ot G81.91 HEMIPLEGIA, UNSPECIFIED AFFECTING RIGHT 10/23/2016 LADARIUS HINDS MD Ot R47.02 DYSPHASIA 10/23/2016 LADARIUS HINDS MD Ot R47.1 DYSARTHRIA AND ANARTHRIA 10/23/2016 ISRRAEL HARTLEY, WARREN Farris Ot B37.9 CANDIDIASIS, UNSPECIFIED 10/23/2016 WARREN ARCOS MD Ot K02.9 DENTAL CARIES, UNSPECIFIED 10/23/2016 WARREN ARCOS MD Ot K05.10 CHRONIC GINGIVITIS, PLAQUE INDUCED 10/23/2016 WARREN ARCOS MD Ot K08.89 OTHER SPECIFIED DISORDERS OF TEETH AND S 10/25/2016 WARREN ARCOS MD Ot B37.9 CANDIDIASIS, UNSPECIFIED 10/25/2016 WARREN ARCOS MD Ot K02.9 DENTAL CARIES, UNSPECIFIED 10/25/2016 WARREN ARCOS MD Ot K05.10 CHRONIC GINGIVITIS, PLAQUE INDUCED 10/25/2016 WARREN ARCOS MD Ot K08.89 OTHER SPECIFIED DISORDERS OF TEETH AND S 10/28/2016 LADARIUS HINDS MD Ot G81.91 HEMIPLEGIA, UNSPECIFIED AFFECTING RIGHT 10/28/2016 LADARIUS HINDS MD Ot R47.02 DYSPHASIA 10/28/2016 LADARIUS HINDS MD Ot R47.1 DYSARTHRIA AND ANARTHRIA 11/09/2016 LADARIUS HINDS MD Ot G81.91 HEMIPLEGIA, UNSPECIFIED AFFECTING RIGHT 11/09/2016 LADARIUS HINDS MD Ot R47.02 DYSPHASIA 11/09/2016 LADARIUS HINDS MD Ot R47.1 DYSARTHRIA AND ANARTHRIA 12/08/2016 LADARIUS HINDS MD Ot G81.91 HEMIPLEGIA, UNSPECIFIED AFFECTING RIGHT 12/08/2016 LADARIUS HINDS MD Ot R47.02 DYSPHASIA 12/08/2016 LADARIUS HINDS MD Ot R47.1 DYSARTHRIA AND ANARTHRIA 12/16/2016 LADARIUS HINDS MD Ot G81.91 HEMIPLEGIA, UNSPECIFIED AFFECTING RIGHT 12/16/2016 LADARIUS HINDS MD Ot R47.02 DYSPHASIA 12/16/2016 LADARIUS HINDS MD Ot R47.1 DYSARTHRIA AND ANARTHRIA 12/17/2016 LADARIUS HINDS MD Ot G81.91 HEMIPLEGIA, UNSPECIFIED AFFECTING RIGHT 12/17/2016 LADARIUS HINDS MD Ot R47.02 DYSPHASIA 12/17/2016 LADARIUS HINDS MD Ot R47.1 DYSARTHRIA AND ANARTHRIA 12/17/2016 LADARIUS HINDS MD Ot G81.91 HEMIPLEGIA, UNSPECIFIED AFFECTING RIGHT 12/17/2016 LADARIUS HINDS MD Ot R47.02 DYSPHASIA 12/17/2016 LADARIUS HINDS MD Ot R47.1 DYSARTHRIA AND ANARTHRIA 12/18/2016 LADARIUS HINDS MD Ot G81.91 HEMIPLEGIA, UNSPECIFIED AFFECTING RIGHT 12/18/2016 LADARIUS HINDS MD Ot R47.02 DYSPHASIA 12/18/2016 LADARIUS HINDS MD Ot R47.1 DYSARTHRIA AND ANARTHRIA 01/04/2017 LADARIUS HINDS MD Ot G81.91 HEMIPLEGIA, UNSPECIFIED AFFECTING RIGHT 01/04/2017 LADARIUS HINDS MD Ot R47.02 DYSPHASIA 01/04/2017 LADARIUS HINDS MD Ot R47.1 DYSARTHRIA AND ANARTHRIA 01/17/2017 LADARIUS HINDS MD, Ot G81.91 HEMIPLEGIA, UNSPECIFIED AFFECTING RIGHT 01/17/2017 LADARIUS HINDS MD Ot R47.02 DYSPHASIA 01/17/2017 LADARIUS HINDS MD, Ot R47.1 DYSARTHRIA AND ANARTHRIA 01/17/2017 JADA RIVERA DO Ot F32.9 MAJOR DEPRESSIVE DISORDER, SINGLE EPISOD 01/17/2017 JADA RIVERA DO Ot K21.9 GASTRO-ESOPHAGEAL REFLUX DISEASE WITHOUT 01/17/2017 JADA RIVERA DO Ot K59.00 CONSTIPATION, UNSPECIFIED 01/17/2017 JADA RIVERA DO Ot R10.9 UNSPECIFIED ABDOMINAL PAIN 01/17/2017 JADA RIVERA DO Ot R91.8 OTHER NONSPECIFIC ABNORMAL FINDING OF BRAXTON 01/17/2017 JADA RIVERA DO Ot Z87.09 PERSONAL HISTORY OF OTHER DISEASES OF 01/17/2017 JADA RIVERA DO, Ot Z87.19 PERSONAL HISTORY OF OTHER DISEASES OF 01/17/2017 JADA RIVERA DO Ot Z87.442 PERSONAL HISTORY OF URINARY CALCULI 01/17/2017 JADA RIVERA DO Ot Z90.49 ACQUIRED ABSENCE OF OTHER SPECIFIED PART 01/19/2017 JADA RIVERA DO Ot F32.9 MAJOR DEPRESSIVE DISORDER, SINGLE EPISOD 01/19/2017 MIGUEL SIDDHARTH DUARTEA K Ot K21.9 GASTRO-ESOPHAGEAL REFLUX DISEASE WITHOUT 01/19/2017 MIGUEL DO, JADA K Ot K59.00 CONSTIPATION, UNSPECIFIED 01/19/2017 MIGUEL DO, JADA K Ot R10.9 UNSPECIFIED ABDOMINAL PAIN 01/19/2017 MIGUEL DO, JADA K Ot R91.8 OTHER NONSPECIFIC ABNORMAL FINDING OF BRAXTON 01/19/2017 MIGUEL SIDDHARTH DUARTEA K Ot Z87.09 PERSONAL HISTORY OF OTHER DISEASES OF TH 01/19/2017 MIGUEL , JADA K Ot Z87.19 PERSONAL HISTORY OF OTHER DISEASES OF TH 01/19/2017 MIGUEL , JADA K Ot Z87.442 PERSONAL HISTORY OF URINARY CALCULI 01/19/2017 MIGUEL , JADA K Ot Z90.49 ACQUIRED ABSENCE OF OTHER SPECIFIED PART 01/20/2017 MIGUEL , JADA K Ot F32.9 MAJOR DEPRESSIVE DISORDER, SINGLE EPISOD 01/20/2017 MIGUEL SIDDHARTH DUARTEA K Ot K21.9 GASTRO-ESOPHAGEAL REFLUX DISEASE WITHOUT 01/20/2017 MIGUEL DO, JADA K Ot K59.00 CONSTIPATION, UNSPECIFIED 01/20/2017 MIGUEL , JADA K Ot R10.9 UNSPECIFIED ABDOMINAL PAIN 01/20/2017 MIGUEL , JADA K Ot R91.8 OTHER NONSPECIFIC ABNORMAL FINDING OF BRAXTON 01/20/2017 MIGUEL , JADA K Ot Z87.09 PERSONAL HISTORY OF OTHER DISEASES OF 01/20/2017 MIGUEL , JADA K Ot Z87.19 PERSONAL HISTORY OF OTHER DISEASES OF 01/20/2017 MIGUEL SIDDHARTH DUARTEA K Ot Z87.442 PERSONAL HISTORY OF URINARY CALCULI 01/20/2017 MIGUEL , JADA K Ot Z90.49 ACQUIRED ABSENCE OF OTHER SPECIFIED PART 01/27/2017 LADARIUS HINDS MD Ot G81.91 HEMIPLEGIA, UNSPECIFIED AFFECTING RIGHT 01/27/2017 LADARIUS HINDS MD Ot R47.02 DYSPHASIA 01/27/2017 LADARIUS HINDS MD, Ot R47.1 DYSARTHRIA AND ANARTHRIA 02/09/2017 LADARIUS HINDS MD, Ot G81.91 HEMIPLEGIA, UNSPECIFIED AFFECTING RIGHT 02/09/2017 LADARIUS HINDS MD Ot R47.02 DYSPHASIA 02/09/2017 LADARIUS HINDS MD, Ot R47.1 DYSARTHRIA AND ANARTHRIA 02/10/2017 LADARIUS HINDS MD Ot G81.91 HEMIPLEGIA, UNSPECIFIED AFFECTING RIGHT 02/10/2017 LADARIUS HINDS MD, Ot R47.02 DYSPHASIA 02/10/2017 LADARIUS HINDS MD, Ot R47.1 DYSARTHRIA AND ANARTHRIA 05/13/2017 MATY FORD DO Ot 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, UNSPECIFIED 05/13/2017 MATY FORD DO, Ot 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 OR RADICULOPA 05/13/2017 MATY FORD DO, Ot M47.816 SPONDYLOSIS W/O MYELOPATHY OR RADICULOPA 05/13/2017 MATY FORD DO, Ot M48.061 SPINAL STENOSIS, LUMBAR REGION WITHOUT N 05/25/2017 JANAK ALFONSO MD, Ot R13.10 DYSPHAGIA, UNSPECIFIED 05/25/2017 JANAK ALFONSO MD, Ot Z01.818 ENCOUNTER FOR OTHER PREPROCEDURAL EXAMIN 05/26/2017 JANAK ALFONSO MD, Ot 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 05/26/2017 JANAK ALFONSO MD, Ot K21.0 GASTRO-ESOPHAGEAL REFLUX DISEASE WITH ES 05/26/2017 JANAK ALFONSO MD, Ot K22.2 ESOPHAGEAL OBSTRUCTION 05/26/2017 JANAK ALFONSO MD, Ot K29.70 GASTRITIS, UNSPECIFIED, WITHOUT BLEEDING 05/26/2017 JANAK ALFONSO MD, Ot Z87.442 PERSONAL HISTORY OF URINARY CALCULI 05/26/2017 JANAK ALFONSO MD, Ot Z87.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 05/26/2017 JANAK ALFONSO MD, Ot Z88.0 ALLERGY STATUS TO PENICILLIN 05/26/2017 JANAK ALFONSO MD, Ot Z88.1 ALLERGY STATUS TO OTHER ANTIBIOTIC AGENT 05/26/2017 JANAK ALFONSO MD, Ot Z88.8 ALLERGY STATUS TO OTH DRUG/MEDS/BIOL SUB 05/26/2017 JANAK ALFONSO MD, Ot Z99.3 DEPENDENCE ON WHEELCHAIR 06/13/2017 JOSEPH LINK MD Ot G83.5 LOCKED-IN STATE 06/24/2017 JOSEPH LINK MD Ot G83.5 LOCKED-IN STATE 06/25/2017 NIKOLAY HARTLEY, JOSEPH Webb Ot S06.9X0A UNSP INTRACRANIAL INJURY W/O LOSS OF CON 06/28/2017 JOSEPH LINK MD Ot G83.5 LOCKED-IN STATE 07/07/2017 JOSEPH LINK MD Ot S06.9X0A UNSP INTRACRANIAL INJURY W/O LOSS OF CON Procedures Code Description Performed By Performed On 42.92 ESOPHAGEAL DILATION 06/04/2011 45.13 OTHER ENDOSCOPY OF SM INTEST 06/04/2011 98.02 REMOV INTRALUM ESOPH FB 06/04/2011 [id number] RESPIRATORY VENTILATION, 24-96 CONSECUTI 02/22/2016 [id number] EXCISION OF LEFT UPPER LEG MUSCLE, PERC [...] SORAIDA RODRÍGUEZ 02/24/16 7:45 BY Sonny RIVERA [facility] Bacterial sputum culture [id number] NR Bacterial susceptibility panel - 02/22/16 02:40 [...] - 04/08/16 21:35 Bacterial blood culture NG [facility] Influenza virus A and B antigen detection - 04/08/16 21:49 FLU RESULT NEGATIVE FOR INFLUENZA A AND B ANTIGENS BY IA [facility] Bacterial blood culture - 04/08/16 21:52 Bacterial blood culture NG [facility] Complete urinalysis with reflex to culture - 04/08/16 22:45 Urine color determination YELLOW NRG Urine clarity determination CLEAR NR Urine pH measurement by test strip 6 [...] urinalysis with reflex to culture NO NRG Comprehensive Metabolic Panel - 04/11/16 18:54 Albumin 3.5 g/dL 3.6-5.1 ALP 60 U/L 35-130 ALT 9 U/L 6-45 Anion Gap 16 6-14 AST 15 U/L 2-40 BUN 9 mg/dL 5-25 Calcium 8.8 mg/dL 8.3-10.4 Chloride 102 mmol/L 95-114 CO2 23 mEq/L 22-33 Creat 0.75 mg/dL 0.50-1.50 eGFR 120 mL/min/1.73m2 >59 Globulin 3.8 g/dL 2.3-3.5 Glucose 89 mg/dL 70-110 Osmo 281 280-295 Potassium 3.7 mmol/L 3.5-5.3 Sodium 137 mmol/L 134-148 TBil 1.0 mg/dL 0.2-1.2 TP 7.3 g/dL 6.0-8.3 [facility] - 04/12/16 07:14 Anion Gap 15 6-14 BUN 10 mg/dL 5-25 Calcium 8.6 mg/dL 8.3-10.4 Chloride 102 mmol/L 95-114 CO2 25 mEq/L 22-33 Creat 0.71 mg/dL 0.50-1.50 eGFR 127 mL/min/1.73m2 >59 Glucose 90 mg/dL 70-110 Osmo 284 280-295 Potassium 3.8 mmol/L 3.5-5.3 Sodium 138 mmol/L 134-148 CBC with Auto Diff - 04/13/16 08:00 Baso% 0.30 % 0.00-2.50 Eos 0.1 K/uL 0.0-0.7 Eos% 2.0 % 0.0-7.0 Hct 35.3 % 42.0-52.0 Hgb 11.5 g/dL 14.0-17.0 Lym 1.96 K/uL 0.60-3.40 Lym% 30.0 % 10.0-50.0 MCH 29.1 pg 27.0-31.2 MCHC 32.6 g/dL 32.0-36.0 MCV 89.4 fL 80.0-97.0 [place]% 8.3 % 0.0-12.0 MPV 10.7 fL 7.4-10.0 Isabella% 59.4 % 37.0-80.0 Plt 239 K/uL 150-400 RBC 3.95 M/uL 4.20-5.40 RDW 15.3 % 11.6-14.8 WBC 6.53 K/uL 5.00-10.00 Isabella 3.88 K/uL 2.00-6.90 [place] 0.5 K/uL 0.0-0.9 Baso 0.0 K/uL 0.0-0.2 Ova + Parasite Exam - 04/16/16 16:43 OVA + PARASITE EXAM FINAL REPORT RESULT 1 NO OVA, CYSTS, OR PARASITES SEEN. Mycoplasma - 06/28/16 18:23 Mycoplasma Negative Negative Blood Culture - 06/28/16 18:23 PRELIM CULTURE RESULTS Blood Culture Negative, No Growth Day 1 FINAL CULTURE RESULTS Blood Culture Negative, No Growth Day 5 MEDIA PLATED Blood Culture Media Position C43 CULTURE SOURCE LEFT ARM Lipase - 06/28/16 21:30 Lipase 13 U/L 7-59 Blood Culture - 06/28/16 21:40 PRELIM CULTURE RESULTS Blood Culture Negative, No Growth Day 1 FINAL CULTURE RESULTS Blood Culture Negative, No Growth Day 5 MEDIA PLATED Blood Culture Media Position C49 CULTURE SOURCE RIGHT ARM Arterial Blood Gas - 06/28/16 23:04 Base -1.00 mmol/L 1.80-4.20 HCO3 24 mmol/L 20-31 O2 Sat 93 RM AIR % 95-100 pCO2 39 mm/Hg 35-45 pH 7.40 7.35-7.45 PO2 67 mm/Hg 80-95 Lactic Acid - 06/28/16 23:25 Lactic Acid 9.4 mg/dL 4.5-19.8 EKG - 06/28/16 23:37 EKG Complete Urinalysis - 06/28/16 23:50 Icotest N/A Negative Urine Volume Urine Volume Sufficient (10mL) Urine Yeast No Yeast present Urine-Appearance Clear Clear Urine-Bacteria Trace Urine-Bilirubin Negative Negative Urine-Blood Negative Negative Urine-Color Yellow Colorless-Lt. Yellow Urine-Glucose Negative Negative Urine-Ketones 1+ Negative Urine-Leukocytes Negative Negative Urine-Mucus 1+ Urine-Nitrite Negative Negative Urine-Other Culture to follow Urine-pH 7.5 5-8.5 Urine-Protein Trace Negative Urine-RBC 0-2/HPF Urine-Specific [place] 1.015 1.000-1.030 Urine-WBC Negative Urobilinogen 1.0 0.2-1.0 Urine Culture - 06/28/16 23:50 FINAL CULTURE RESULTS <10,000 Gram Positive Mixed Robby [id number] Skin Contaminant MEDIA PLATED Setup at 23:54 on 06/28/2016 CULTURE SOURCE [id number]\ Amylase - 08/01/16 13:22 Amylase 2286 U/L 20-100 Lipase - 08/01/16 13:22 Lipase 8181 U/L 7-59 Mycoplasma - 08/01/16 13:22 Mycoplasma Negative Negative Urinalysis - 08/01/16 16:40 Icotest Positive Negative Urine Volume Urine Volume Sufficient (10mL) Urine Yeast No Yeast present Urine-Appearance Slightly Cloudy Clear Urine-Bacteria Negative Urine-Bilirubin 1+ Negative Urine-Blood Trace-intact Negative Urine-Color Yellow Colorless-Lt. Yellow Urine-Glucose Negative Negative Urine-Ketones Negative Negative Urine-Leukocytes Negative Negative Urine-Nitrite Negative Negative Urine-Other Urine Saved if Culture Needed (48hrs from time of collection) Urine-pH 6.0 5-8.5 Urine-Protein Negative Negative Urine-RBC Negative Urine-Specific [place] <=1.005 1.000-1.030 Urine-WBC Rare/HPF Urobilinogen 2.0 E.U./dL 0.2-1.0 Lipase - 08/19/16 10:26 Lipase 73 U/L [...] - 01/17/17 21:20 QUANTITY OF GROWTH Isolated [facility] Bacterial blood culture [id number] NR Bacterial blood culture - 01/17/17 21:26 Bacterial blood culture [facility] Complete urinalysis with reflex to culture - [...] urinalysis with reflex to culture NO NRG CULTURE, URINE - 07/05/17 15:15 CULTURE, URINE, ROUTINE SEE NOTE NRG Encounters ACCT No. Visit Date/Time Discharge Status Pt. 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 [id number] 05/26/2017 11:10:00 05/26/2017 14:38:00 DIS Outpatient JANAK ALFONSO MD [facility] ENDO DYPHAGIA [id number] 05/25/2017 08:59:00 05/25/2017 09:37:00 DIS Outpatient JANAK ALFONSO MD [facility] PREOP EGD [id number] 04/30/2017 13:54:00 04/30/2017 23:59:59 CLS Preadmit MATY FORD DO [facility] RAD UPPER BACK PAIN, ABNORMAL MRI [id number] 04/27/2017 07:50:00 04/27/2017 23:59:59 CLS Outpatient MATY FORD DO [facility] RAD MID BACK PAIN [id number] 04/14/2017 10:41:00 04/14/2017 23:59:59 CLS Preadmit MATY FORD DO [facility] RAD MID BACK PAIN M54.9 [id number] 03/18/2017 12:00:00 03/18/2017 23:59:59 CLS Preadmit VAISHNAVI MURILLO MD [facility] RAD M54.5 [id number] 02/10/2017 11:00:00 02/10/2017 14:36:00 DIS Outpatient LADARIUS HINDS MD [facility] REHAB MOVEMENT DISORDER; CHRONIC BACK PAIN [id number] 01/17/2017 20:32:00 01/17/2017 23:20:00 DIS Emergency JADA RIVERA DO [facility] ER R SIDE PAIN [id number] 12/15/2016 11:29:00 12/16/2016 00:01:00 DIS Outpatient LADARIUS HINDS MD [facility] REHAB MOVEMENT DISORDER; CHRONIC BACK PAIN [id number] 10/23/2016 17:47:00 10/23/2016 19:44:00 DIS Emergency WARREN ARCOS MD [facility] ER TOOTH INFECTION [id number] 08/19/2016 10:11:00 08/19/2016 23:59:59 CLS Outpatient IMAN GUNDERSON MEASURING MACHINE TENDER [facility] LAB PANCREATITIS [id number] 04/08/2016 21:21:00 04/08/2016 23:20:00 DIS Emergency JUAN JOSE BLAS MEASURING MACHINE TENDER [facility] ER FEVER [id number] 04/06/2016 11:06:00 04/06/2016 13:10:00 DIS Emergency LETA SUTTON [facility] ER FEEDING TUBE CAME OUT [id number] 04/05/2016 13:15:00 04/05/2016 15:14:00 DIS Emergency BLASJUAN JOSE APRN [facility] ER FEEDING TUBE FELL OUT [id number] 03/25/2016 11:10:00 03/25/2016 23:59:59 CLS Outpatient CINTHIA HOLLIS DO [facility] [address] [id number] 02/22/2016 01:36:00 02/26/2016 13:50:00 DIS Inpatient DAMIÁN GOLDBERG MD [facility] 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 [id number] 11/29/2015 09:04:00 11/29/2015 13:20:00 DIS Outpatient JANAK ALFONSO MD [facility] [address] MALFUNCTIONING G-TUBE [id number] 11/28/2015 09:45:00 11/28/2015 09:57:00 DIS Outpatient JANAK ALFONSO MD [facility] PREOP MALFUNCTIONING T-TUBE [id number] 10/23/2015 16:07:00 10/25/2015 08:15:00 DIS Inpatient CINTHIA HOLLIS DO [facility] 4TH SEPTIC SHOCK;PNEUMONIA LLL;POSS.GI BLEEDING [id number] 09/08/2015 18:51:00 09/12/2015 13:02:00 DIS Inpatient JANAK ALFONSO MD [facility] 4TH ACUTE PERITOUITIS [id number] 09/06/2015 12:01:00 09/06/2015 15:15:00 DIS Outpatient JANAK ALFONSO MD [facility] [address] MALNUTRITION [id number] 09/05/2015 08:25:00 09/05/2015 10:56:00 DIS Outpatient JANAK ALFONSO MD [facility] PREOP MALNUTRITION [id number] 07/26/2015 22:50:00 07/27/2015 13:36:00 DIS Inpatient DAMIÁN GOLDBERG MD [facility] ICU NARCOTIC OVERDOSE, HYPOTENSION,R UE CELLULITIS [id number] 06/25/2015 15:45:00 07/08/2015 16:21:00 DIS Outpatient LADARIUS HINDS MD [facility] REHAB WEAKNESS [id number] 05/16/2015 10:45:00 05/19/2015 00:01:00 DIS Outpatient LADARIUS HINDS MD [facility] REHAB WEAKNESS [id number] 03/21/2015 12:38:00 04/23/2015 13:42:00 DIS Outpatient LADARIUS HINDS MD [facility] REHAB DYSPHAGIA,NONCLOSING VOCAL CORDS [id number] 02/15/2015 11:21:00 02/15/2015 23:59:59 CLS Outpatient LADARIUS HINDS MD [facility] RAD SEE ORDER [id number] 02/12/2015 10:16:00 02/13/2015 00:01:00 DIS Outpatient [facility] [id number] 01/24/2015 13:03:00 02/13/2015 00:01:00 DIS Outpatient [facility]DS [facility] D[facility]SPHAG[facility],NONCLOSING VOCAL CORDS [id number] 12/18/2014 14:59:00 12/18/2014 18:20:00 DIS Emergency LETA SUTTON [facility] ER SOA [id number] 09/08/2014 14:51:00 09/10/2014 10:10:00 DIS Inpatient BRENDAN BA DO [facility] SURGICAL INTRACTABLE VOMITING;KETOSIS [id number] 08/03/2014 15:14:00 08/06/2014 20:22:00 DIS Inpatient RAINE HARTLEY, RUFUS Simmons [facility] IRF MARIANO D [id number] 08/01/2014 17:40:00 08/03/2014 14:54:00 DIS Inpatient AMMY HARTLEY, RADHA Moya [facility] 4TH PROGRESSIVE BILAT LE WEAKNESS,LEG PAIN [id number] 02/15/2014 13:50:00 02/21/2014 00:01:00 DIS Outpatient LADARIUS HINDS MD [facility] REHAB DECREASING STRENGTH, POOR BALANCE,MOVEMENT DISORDER [id number] 02/02/2014 09:51:00 02/02/2014 11:18:00 DIS Emergency JUAN JOSE BLAS APRN [facility] ER LEFT EARACHE/DRAINAGE [id number] 11/03/2013 10:41:00 11/14/2013 00:01:00 DIS Outpatient LADARIUS HINDS MD [facility] REHAB DECREASING STRENGTH AND POOR BALANCE [id number] 11/07/2013 17:12:00 11/08/2013 16:31:00 DIS Outpatient JANAK ALFONSO MD [facility] [address] DYSPHAGIA WITH COUGH AND REPORTED FEVER [id number] 09/26/2013 19:28:00 09/26/2013 21:01:00 DIS Emergency PAULINE MCCLELLAND MD [facility] ER WEAKNESS,BACK PAIN, L LEG NUMBNESS [id number] 05/25/2013 10:02:00 05/25/2013 23:59:59 CLS Outpatient LADARIUS HINDS MD [facility] RAD TREMORS,ESSENTIAL VS TREMORS [id number] 04/04/2013 14:10:00 04/05/2013 15:00:00 DIS Outpatient INOCENCIA JULES MD [facility] [address] URETEOLITHIASIS, N/V [id number] 03/31/2013 18:00:00 03/31/2013 20:41:00 DIS Emergency JADA RIVERA DO [facility] ER VOMITTING [id number] 03/30/2013 14:30:00 03/30/2013 19:13:00 DIS Emergency LETA SUTTON [facility] ER ABD PAIN/VOMITING UTI SYMPTOMS [id number] 09/06/2015 14:13:00 Document Registration [id number] 04/28/2012 10:01:00 Document Registration [id number] 11/09/2011 14:23:00 Document Registration [id number] 07/16/2011 23:47:00 Document Registration [id number] 06/04/2011 17:10:00 Document Registration [id number] 06/02/2011 21:19:00 Document Registration [id number] 01/02/2011 16:17:00 Document Registration [id number] 12/19/2009 20:28:00 Document Registration [id number] 08/01/2016 12:51:00 Document Registration [id number] 02/22/2015 13:18:21 ACT Document Registration [id number] 09/24/2017 16:30:00 ACT Outpatient JOSEPH LINK MD [facility] DENTAL [id number] 07/05/2017 09:40:00 Document Registration [id number] 08/01/2016 12:51:00 08/01/2016 16:15:00 DIS Outpatient Hemalatha Mckeon [id number] 06/28/2016 17:56:00 06/29/2016 00:33:00 DIS Outpatient [facility] ER [id number] 04/16/2016 14:55:00 04/16/2016 23:59:00 DIS Outpatient Ladarius Hinds [id number] 04/11/2016 18:35:00 04/15/2016 11:00:00 DIS Inpatient Nba Mckeonssica [facility] MED-SURG [id number] 06/28/2017 13:02:25 Document Registration [id number] 04/11/2016 18:55:12 Document Registration
[2017-09-26] MEDS ORDERED: OXYC30TA77 PO (21:29)
[2017-09-26] MEDS ORDERED: ZOLP10TA5 PO (21:29)
[2017-09-26] MEDS ORDERED: OXYC20TA54 PO (21:29)
[2017-09-26] MEDS ORDERED: NS IV 1000 ML 1,000 ML IV SCH ×2 (21:30→23:00)
[2017-09-26] MEDS ORDERED: fentaNYL INJECTION 100 MCG/2 ML AMP IVP ONE (21:30)
[2017-09-26] MEDS ORDERED: LIDO700A45 TD (21:30)
[2017-09-26] MEDS ORDERED: ACETAMINOPHEN 500 MG TAB (TYLENOL) PO ONE (21:30)
[2017-09-26 21:32] LABS: BASOPHILS % (AUTO) 0 % (0-10); EOSINOPHILS # (AUTO) 0.3 10^3/uL (0.0-0.3); EOSINOPHILS % (AUTO) 3 % (0-10); HEMATOCRIT 38 % (40-54); HEMOGLOBIN 13.4 G/DL (13.3-17.7); LYMPHOCYTES # (AUTO) 0.6 X 10^3 (1.0-4.0); LYMPHOCYTES % (AUTO) 7 % (12-44); MEAN CORPUSCULAR HEMOGLOBIN 29 PG (25-34); MEAN CORPUSCULAR HGB CONC 35 G/DL (32-36); MEAN CORPUSCULAR VOLUME 84 FL (80-99); MONOCYTES # (AUTO) 0.4 X 10^3 (0.0-1.0); MONOCYTES % (AUTO) 5 % (0-12); NEUTROPHILS # (AUTO) 6.6 X 10^3 (1.8-7.8); NEUTROPHILS % (AUTO) 84 % (42-75); PLATELET COUNT 235 10^3/uL (130-400); RED BLOOD COUNT 4.57 10^6/uL (4.35-5.85); WHITE BLOOD COUNT 7.8 10^3/uL (4.3-11.0)
[2017-09-26] MEDS ORDERED: ONDANSETRON 4 MG/2 ML (SDV) Z0FRAN ONE (21:33)
--- NOTE | 2017-09-26 21:37 | Diagnostic Imaging Report ---
INDICATION: Lower respiratory infection Portable chest 9:28 PM There is interstitial infiltrate in the left perihilar region consistent with pneumonia. IMPRESSION: Left perihilar pneumonia. There is no effusion. Dictated by: Dictated on workstation # [id number]
[2017-09-26] MEDS ORDERED: MEROPENEM 1,000 MG in NS (IVPB) 100 ML IV ONE (21:45)
[2017-09-26] MEDS ORDERED: ONDANSETRON 4 MG/2 ML (SDV) Z0FRAN IVP ONE (21:45)
[2017-09-26] MEDS ORDERED: IOHEXOL 350 MG/ML 100 ML (OMNIPAQUE 350) VIAL IV ONE (21:45)
[2017-09-26] MEDS ORDERED: NS 250 ML (IVPB) BAG IV ONE (21:45)
[2017-09-26 21:52] LABS: BAND NEUTROPHILS 11 %; EOSINOPHILS % (MANUAL) 2 %; LYMPHOCYTES % (MANUAL) 11 %; MONOCYTES % (MANUAL) 2 %; REACTIVE LYMPHOCYTES 2 %
[2017-09-26 21:53] LABS: ELLIPT/OVALOCYTES SLIGHT; MICROCYTOSIS SLIGHT; NEUTROPHILS % (MANUAL) 72 %; PLATELET CLUMPS SLIGHT; POIKILOCYTOSIS SLIGHT
[2017-09-26] MEDS ORDERED: NS (IVPB) 100 ML ONE (21:58)
[2017-09-26] MEDS ORDERED: MEROPENEM 500 MG VIAL (MERREM) IV ONE (21:58)
[2017-09-26 22:03] LABS: ALANINE AMINOTRANSFERASE 9 U/L (0-55); ALBUMIN 4.1 GM/DL (3.2-4.5); ALKALINE PHOSPHATASE 77 U/L (40-136); BUN/CREATININE RATIO 10; CALCIUM 9.4 MG/DL (8.5-10.1); CARBON DIOXIDE 24 MMOL/L (21-32); CHLORIDE 106 MMOL/L (98-107); CREATININE SERUM 0.82 MG/DL (0.60-1.30); GFR ESTIMATED > 60; GLUCOSE 87 MG/DL (70-105); POTASSIUM 3.9 MMOL/L (3.6-5.0); SODIUM 140 MMOL/L (135-145); TOTAL PROTEIN 8.2 GM/DL (6.4-8.2)
[2017-09-26] MEDS ORDERED: HYDROmorphone 2 MG/ML VIAL (DILAUDID) ONE (22:05)
[2017-09-26 22:14] LABS: BILIRUBIN,URINE NEGATIVE (NEGATIVE); CLARITY,URINE CLEAR; COLOR,URINE YELLOW; GLUCOSE, URINE (UA) NEGATIVE (NEGATIVE); KETONES,URINE NEGATIVE (NEGATIVE); LEUKOCYTE ESTERASE ,URINE NEGATIVE (NEGATIVE); NITRITE,URINE NEGATIVE (NEGATIVE); PH,URINE 7 (5-9); PROTEIN,URINE NEGATIVE (NEGATIVE); UROBILINOGEN,URINE NORMAL (NORMAL)
[2017-09-26] MEDS ORDERED: HYDROmorphone 1 MG/ML (DILAUDID) 1 ML SYRINGE IV ONE (22:15)
[2017-09-26 22:21] LABS: BACTERIA,URINE NEGATIVE /HPF; SQUAMOUS EPITHELIAL CELL,UR RARE /HPF
[2017-09-26] MEDS ORDERED: CEFD300C3 PO (22:38)
[2017-09-26] MEDS ORDERED: METR500T21 PO (22:38)
[2017-09-26] MEDS ORDERED: KETOROLAC 30 MG/ML VIAL ONE (23:39)
[2017-09-27 01:16] VITALS: BP 107/75
[2017-09-27] MEDS ORDERED: NS IV 1000 ML 1,000 ML IV SCH (01:30)
[2017-09-27] MEDS ORDERED: ACETAMINOPHEN 325 MG TABLET/CAPLET (TYLENOL) PO PRN (01:30)
[2017-09-27] MEDS ORDERED: CATHETER FLUSH 10 ML SYR IV PRN (01:30)
[2017-09-27] MEDS ORDERED: oxyCODONE/APAP 10/325MG (PERCOCET 10) TABLET PO PRN (01:30)
[2017-09-27] MEDS ORDERED: IBUPROFEN 600 MG (MOTRIN) TAB PO PRN (01:30)
[2017-09-27] MEDS ORDERED: ONDANSETRON 4 MG/2 ML (SDV) Z0FRAN IV PRN (01:30)
[2017-09-27] MEDS ORDERED: RT-ALBUTEROL SULF 2.5 MG/3 ML PRE-MIX VIAL INH PRN (01:30)
[2017-09-27] MEDS ORDERED: NICOTINE 14 MG (NICODERM) PATCH TD ONE (01:40)
[2017-09-27] MEDS ORDERED: LEVOFLOXACIN 750 MG/150 ML IV 150 ML IV ONE (01:44)
[2017-09-27 04:02] VITALS: BP 130/64
[2017-09-27] MEDS ORDERED: oxyCODONE/APAP 10/325MG (PERCOCET 10) TABLET PO ONE (04:29)
[2017-09-27] MEDS ORDERED: CATHETER FLUSH 10 ML SYR IV SCH (06:00)
--- NOTE | 2017-09-27 06:22 | Diagnostic Imaging Report ---
PROCEDURE: CT abdomen and pelvis with contrast, rule out appendicitis. TECHNIQUE: Multiple contiguous axial images were obtained through the abdomen and pelvis after the administration of intravenous contrast. INDICATION: Fever and pain. Comparison made with prior examination from 01/17/2017. FINDINGS: There is a patchy infiltrate in the left lung base suspect for early pneumonia. Seem to a lesser degree the right lung base. The heart size is normal. The liver is normal in size without focal lesions. There is no biliary duct dilatation. Spleen is normal. Gallbladder surgically absent. The pancreas, adrenal glands and kidneys are unremarkable. Aorta is nonaneurysmal. Bowel gas pattern is nonspecific. There is no free air. There is no ascites. There are no focal inflammatory changes. There is no definitive CT evidence of appendicitis. There is a moderate amount of retained fecal material in the right colon likely reflecting some degree of constipation. There is no pelvic mass or adenopathy. Bladder is normal. There are degenerative changes in the spine. IMPRESSION: Moderate amount of retained fecal material in the right colon likely reflecting some degree of constipation Patchy bibasilar pulmonary infiltrates, left greater than right, suspect for pneumonia. No definitive CT evidence of appendicitis. Dictated by: Dictated on workstation # [id number]
[2017-09-27 06:59] LABS: BASOPHILS % (AUTO) 0 % (0-10); EOSINOPHILS # (AUTO) 0.5 10^3/uL (0.0-0.3); EOSINOPHILS % (AUTO) 3 % (0-10); HEMATOCRIT 33 % (40-54); LYMPHOCYTES # (AUTO) 1.5 X 10^3 (1.0-4.0); LYMPHOCYTES % (AUTO) 9 % (12-44); MEAN CORPUSCULAR HEMOGLOBIN 29 PG (25-34); MEAN CORPUSCULAR HGB CONC 33 G/DL (32-36); MEAN CORPUSCULAR VOLUME 88 FL (80-99); MEAN PLATELET VOLUME 10.8 FL (7.4-10.4); MONOCYTES # (AUTO) 1.2 X 10^3 (0.0-1.0); MONOCYTES % (AUTO) 7 % (0-12); NEUTROPHILS # (AUTO) 13.3 X 10^3 (1.8-7.8); NEUTROPHILS % (AUTO) 81 % (42-75); PLATELET COUNT 248 10^3/uL (130-400); RED BLOOD COUNT 3.76 10^6/uL (4.35-5.85); RED CELL DISTRIBUTION WIDTH 15.2 % (10.0-14.5); WHITE BLOOD COUNT 16.6 10^3/uL (4.3-11.0)
[2017-09-27 08:00] VITALS: BP 100/57
[2017-09-27] MEDS ORDERED: RT-ALBUTEROL SULF 2.5 MG/3 ML PRE-MIX VIAL INH SCH (08:00)
[2017-09-27 08:09] LABS: BAND NEUTROPHILS 9 %; BASOPHILS % (MANUAL) 0 %; EOSINOPHILS % (MANUAL) 3 %; LYMPHOCYTES % (MANUAL) 6 %; MONOCYTES % (MANUAL) 4 %; NEUTROPHILS % (MANUAL) 78 %; RBC MORPH NORMAL
[2017-09-27] MEDS ORDERED: ALPR1TAB7 PO (08:54)
[2017-09-27] MEDS ORDERED: MEROPENEM 500 MG in NS (IVPB) 100 ML IV SCH (09:00)
[2017-09-27] MEDS ORDERED: LEVOFLOXACIN 750 MG/150 ML IV 150 ML IV SCH (09:00)
[2017-09-27] MEDS ORDERED: NICOTINE 14 MG (NICODERM) PATCH TD SCH (09:00)
--- NOTE | 2017-09-27 09:39 | Short Stay Summary ---
History of Present Illness History of Present Illness Reason for visit/HPI Fever, Shortness of Breath Date of Admission September 26, 2017 at 22:15 Date of Discharge 09/27/17 Time Seen by Provider: 09:25 Attending Physician Amira Sy DO Admitting Physician [place] Consult Allergies and Home Medications Allergies Coded Allergies: Penicillins (Verified Allergy, Mild, 05/26/17) azithromycin (Verified Allergy, Mild, 05/26/17) quetiapine fumarate (Verified Allergy, Unknown, 05/26/17) Home Medications Alprazolam 1 Mg Tablet, 1 MG PO DAILY, (Reported) Alprazolam 1 Mg Tablet, 2 MG PO HS, (Reported) TAKES 2 (1MG) TABLETS Amitriptyline HCl 25 Mg Tablet, 50 MG PO HS, (Reported) TAKE 2 (25MG) TABS Dexlansoprazole 60 Mg Cap.bp, 60 MG PO DAILY, (Reported) Gabapentin 300 Mg Capsule, 300 MG PO TID, (Reported) Levofloxacin 750 Mg Tablet, 750 MG PO DAILY Prescribed by: MATY FORD on 09/27/17 0947 Lidocaine 1 Each Adh..patch, 1 PATCH TD DAILY PRN for BREAKTHROUGH PAIN, ( Reported) Oxycodone HCl 30 Mg Tab.er.12h, 30 MG PO DAILY, (Reported) Oxycodone HCl 20 Mg Tab.er.12h, 20 MG PO HS, (Reported) Oxycodone HCl/Acetaminophen 1 Each Tablet, 1 TAB PO TID, (Reported) Pantoprazole Sodium 40 Mg Tablet.dr, 40 MG PO DAILY, (Reported) Zolpidem Tartrate 10 Mg Tablet, 10 MG PO HS, (Reported) Patient Home Medication List Home Medication List Reviewed: Yes Past Uvxzbve-Xzuogi-Dnpzgj Hx Patient Social History Marrital Status: single Living Status: lives with caregiver and family Employed/Student: unemployed Alcohol Use: Denies Use Recreational Drug Use: No Smoking Status: Former Smoker Type Used: Smokeless Tobacco 2nd Hand Smoke Exposure: No Physical Abuse Screen: No Sexual Abuse: No Recent Foreign Travel: No Contact w/other who traveled: No Recent Hopitalizations: No Recent Infectious Disease Expo: No Immunizations Up To Date Tetanus Booster (TDap): Unknown Pediatric: Yes Date of Pneumonia Vaccine: Jun 16, 2009 Date of Influenza Vaccine: Jul 11, 2014 Seasonal Allergies Seasonal Allergies: No Surgeries Yes (EGD WITH DILATION, PEG TUBE/ REMOVED, FROZEN SHOULDER; KIDNEY STONE REMOVAL ) Abdominal, Gallbladder, Orthopedic, Renal Respiratory Yes (BRONCHITIS/PNEUMONIA; CHRONIC COUGH) COPD Currently Using CPAP: No Currently Using BIPAP: No Cardiovascular No Neurological Yes (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) Reproductive System Hx Reproductive Disorders: No Sexually Transmitted Disease: No HIV/AIDS: No Genitourinary Yes Kidney Stones Gastrointestinal Yes (ESOPHAGEAL STRICTURES-S/P DILATIONS, ) Gastroesophageal Reflux, Hiatal Hernia, Gall Bladder Disease Musculoskeletal Yes (RIGHT SHOULDER FROZEN; CHRONIC PAIN ) Degenerate Disk Disease, Chronic Back Pain Endocrine History of Endocrine Disorders: No HEENT History of HEENT Disorders: Yes (POOR DENTITION) Loss of Vision: Denies Hearing Impairment: Denies Cancer No Psychosocial History of Psychiatric Problem: Yes Behavioral Health Disorders: Depression Integumentary History of Skin or Integumenta: No Blood Transfusions History of Blood Disorders: No Reviewed Nursing Assessment Reviewed/Agree w Nursing PMH: Yes Family Medical History Family Hx: Dysphagia 19 MOTHER Family history: Arthritis 19 MOTHER Family history: Diabetes mellitus 19 FATHER Family history: Thyroid disorder 19 MOTHER Constitutional: see HPI EENTM: see HPI Respiratory: cough, dyspnea on exertion, phlegm, short of breath Cardiovascular: no symptoms reported Gastrointestinal: no symptoms reported Genitourinary: no symptoms reported Musculoskeletal: no symptoms reported Skin: no symptoms reported Psychiatric/Neurological: No Symptoms Reported Physical Exam Vital Signs Vital Signs - First Documented 09/26/17 09/27/17 21:09 01:16 Temp 102.2 Pulse 157 Resp 24 B/P (MAP) 107/75 (86) Pulse Ox 100 O2 Delivery Room Air FiO2 21 Capillary Refill : Less Than 3 Seconds General Appearance: No Apparent Distress, WD/WN Eyes: Bilateral Eye Normal Inspection, Bilateral Eye EOMI HEENT: Normal ENT Inspection; No Photophobia, No Scleral Icterus (L), No Scleral Icterus (R) Neck: Full Range of Motion, Normal Inspection, Non Tender, Supple Respiratory: Chest Non Tender, No Accessory Muscle Use, No Respiratory Distress , Decreased Breath Sounds (mildly decreased in left base) Cardiovascular: Regular Rate, Rhythm, No Edema, No Gallop, No JVD, Normal Peripheral Pulses Gastrointestinal: Normal Bowel Sounds, No Organomegaly, No Pulsatile Mass, Non Tender Rectal: Deferred Extremity: Normal Capillary Refill, Non Tender, No Calf Tenderness, No Pedal Edema, Other (contractures in extremities x4) Neurologic/Psychiatric: Alert, Normal Mood/Affect, Aphasia, Other (responds to yes/no questions with eye blinking) Skin: Normal Color, Warm/Dry Clinical Quality Measures DVT/VTE Risk/Contraindication: Risk Factor Score Per Nursin RFS Level Per Nursing on Admit: 3=High Contraindications-Pharm: Pt at low risk Contraindications-Mechi: Pt at low risk Short Stay Diagnosis Discharge Diagnosis-Short Stay Admission Diagnosis: PNA Fever Final Discharge Diagnosis: Left PNA Anemia Leukocytosis Conclusion Labs Laboratory Tests 09/26/17 21:18: White Blood Count 7.8, Red Blood Count 4.57, Hemoglobin 13.4, Hematocrit 38L, Mean Corpuscular Volume 84, Mean Corpuscular Hemoglobin 29, Mean Corpuscular Hemoglobin Concent 35, Red Cell Distribution Width 15.0H, Platelet Count 235, Mean Platelet Volume 10.0, Neutrophils (%) (Auto) 84H, Lymphocytes (%) (Auto) 7L , Monocytes (%) (Auto) 5, Eosinophils (%) (Auto) 3, Basophils (%) (Auto) 0, Neutrophils # (Auto) 6.6, Lymphocytes # (Auto) 0.6L, Monocytes # (Auto) 0.4, Eosinophils # (Auto) 0.3, Basophils # (Auto) 0.0, Neutrophils % (Manual) 72, Lymphocytes % (Manual) 11, Monocytes % (Manual) 2, Eosinophils % (Manual) 2, Band Neutrophils 11, Reactive Lymphocytes 2, Clumped Platelets SLIGHT, Poikilocytosis SLIGHT, Microcytosis SLIGHT, Elliptocytes SLIGHT, Sodium Level 140, Potassium Level 3.9, Chloride Level 106, Carbon Dioxide Level 24, Anion Gap 10, Blood Urea Nitrogen 8, Creatinine 0.82, Estimat Glomerular Filtration Rate > 60, BUN/Creatinine Ratio 10, Glucose Level 87, Lactic Acid Level 1.49, Calcium Level 9.4, Total Bilirubin 1.0, Aspartate Amino Transf (AST/SGOT) 17, Alanine Aminotransferase (ALT/SGPT) 9, Alkaline Phosphatase 77, Total Protein 8.2, Albumin 4.1 09/26/17 22:08: Urine Color YELLOW, Urine Clarity CLEAR, Urine pH 7, Urine Specific [place] 1.005L, Urine Protein NEGATIVE, Urine Glucose (UA) NEGATIVE, Urine Ketones NEGATIVE, Urine Nitrite NEGATIVE, Urine Bilirubin NEGATIVE, Urine Urobilinogen NORMAL, Urine Leukocyte Esterase NEGATIVE, Urine RBC (Auto) NEGATIVE, Urine RBC NONE, Urine WBC NONE, Urine Squamous Epithelial Cells RARE, Urine Crystals NONE , Urine Bacteria NEGATIVE, Urine Casts NONE, Urine Mucus NEGATIVE, Urine Culture Indicated NO 09/27/17 06:18: White Blood Count 16.6H, Red Blood Count 3.76L, Hemoglobin 11.0L, Hematocrit 33L , Mean Corpuscular Volume 88, Mean Corpuscular Hemoglobin 29, Mean Corpuscular Hemoglobin Concent 33, Red Cell Distribution Width 15.2H, Platelet Count 248, Mean Platelet Volume 10.8H, Neutrophils (%) (Auto) 81H, Lymphocytes (%) (Auto) 9L, Monocytes (%) (Auto) 7, Eosinophils (%) (Auto) 3, Basophils (%) (Auto) 0, Neutrophils # (Auto) 13.3H, Lymphocytes # (Auto) 1.5, Monocytes # (Auto) 1.2H, Eosinophils # (Auto) 0.5H, Basophils # (Auto) 0.0, Neutrophils % (Manual) 78, Lymphocytes % (Manual) 6, Monocytes % (Manual) 4, Eosinophils % (Manual) 3, Band Neutrophils 9, Basophils % (Manual) 0, Blood Morphology Comment NORMAL Microbiology 09/26/17 Influenza Types A,B Antigen (EMANUEL) - Final, Complete Conclusion/Plan Nursing staff reports that as soon as they arrived this morning, pt's family started asking to go. When contacted, went up to see patient, discussed with patient and caregiver Loraine who was at bedside that it appears Rafael has PNA and may benefit from IV abx. When asked, patient said yes he wanted to go home , Loraine, who is patient's caregiver, also stated that she felt comfortable caring for him at home. No fever since admission. Will discharge to home on Levaquin and with close outpatient follow up, as patient is at high risk for decompensation. Copy Copies To 1: JOSEPH KOCH MD, MARGARET E DO September 27, 2017 09:38
[2017-09-27] MEDS ORDERED: LIDOCAINE (LIDODERM) 5% PATCH TOP PRN (09:45)
[2017-09-27] MEDS ORDERED: LEVO750T9 PO (09:47)
--- NOTE | 2017-09-27 09:52 | Discharge Instructions ---
Discharge [facility] Discharge Medications New, Converted or Re-Newed RX: Transmitted to Pharmacy New Medications: Levofloxacin (Levaquin) 750 Mg Tablet 750 MG PO DAILY for 6 Days, #6 TAB 0 Refills Continued Medications: Alprazolam (Alprazolam) 1 Mg Tablet 1 MG PO DAILY, TAB Alprazolam (Alprazolam) 1 Mg Tablet 2 MG PO HS, TAB TAKES 2 (1MG) TABLETS Amitriptyline HCl (Amitriptyline HCl) 25 Mg Tablet 50 MG PO HS, TAB TAKE 2 (25MG) TABS Dexlansoprazole (Dexilant) 60 Mg Cap.bp 60 MG PO DAILY, CAP Gabapentin (Gabapentin) 300 Mg Capsule 300 MG PO TID, CAP Lidocaine (Lidocaine) 1 Each Adh..patch 1 PATCH TD DAILY PRN for BREAKTHROUGH PAIN, TAB Oxycodone HCl (Oxycontin) 30 Mg Tab.er.12h 30 MG PO DAILY, TAB Oxycodone HCl (Oxycontin) 20 Mg Tab.er.12h 20 MG PO HS, TAB Oxycodone HCl/Acetaminophen (Oxycodone-Acetaminophen 10-325) 1 Each Tablet 1 TAB PO TID, TAB Pantoprazole Sodium (Pantoprazole Sodium) 40 Mg Tablet.dr 40 MG PO DAILY, TAB Zolpidem Tartrate (Zolpidem Tartrate) 10 Mg Tablet 10 MG PO HS, TAB Patient Instructions Patient Instructions -take medication as prescribed -finish all antibiotic as directed\ -keep follow up appointment as scheduled -call carton forming machine tender provider with any questions or concerns Goal/Follow Up Appt: Dr. Carlos Koch 10/09/17 at 12:00 PM Return to The Hospital For: chest pain or pressure, shortness of breath out of normal for patient that does not relieve with rest, nausea or vomiting that lasts >12 hours and makes you unable to keep down medications or sips of clear liquid, fever >101 that does not decrease in one hour after tylenol or motrin is taken Activity & Diet Discharge Diet: Cardiac Diet Activity as Tolerated: Yes Orders-Post D/C & Referrals Pneu Vac Indicated: Yes Copy Copies To 1: JOSEPH KOCH MD, MARGARET E DO September 27, 2017 09:52
[2017-09-27 10:15] VITALS: BP 100/57
[2017-09-27] MEDS ORDERED: oxyCODONE/APAP 10/325MG (PERCOCET 10) TABLET PO SCH (13:00)
[2017-09-27] MEDS ORDERED: GABAPENTIN 300 MG (NEURONTIN) CAP PO SCH (13:00)
[2017-09-27] MEDS ORDERED: oxyCODONE ER 20 MG (OxyCONTIN CR) TAB PO SCH (21:00)
[2017-09-27] MEDS ORDERED: NON-FORMULARY MEDICATION 1 EA EA (Zolpidem Tartrate 10 MG) PO SCH (21:00)
[2017-09-27] MEDS ORDERED: ALPRAZolam 1 MG (XANAX) TAB PO SCH (21:00)
[2017-09-27] MEDS ORDERED: AMITRIPTYLINE 50 MG (ELAVIL) TAB PO SCH (21:00)
[2017-09-28] MEDS ORDERED: PANTOPRAZOLE 40 MG (PROTONIX) TAB PO SCH ×2 (07:00)
[2017-09-28] MEDS ORDERED: ALPRAZolam 1 MG (XANAX) TAB PO SCH (09:00)
[2017-09-28] MEDS ORDERED: oxyCODONE ER 15 MG (oxyCONTIN CR) TAB PO SCH (09:00)
== END 2017-09-27 10:15 | disposition home or self-care (01) ==
LOC: EDUNIT# 21:02 → ER 21:04 → UNDOADMOB 22:15 → 4TH 22:15 → UNDODISOB 09-27 10:15
PROVIDERS: ADMIT Family Medicine; ATTEND Family Medicine
DX: J18.9 Pneumonia, unspecified organism (principal); D64.9 Anemia, unspecified; J44.9 Chronic obstructive pulmonary disease, unspecified; K21.9 Gastro-esophageal reflux disease without esophagitis; K44.9 Diaphragmatic hernia without obstruction or gangrene; F32.9 Major depressive disorder, single episode, unspecified; F17.220 Nicotine dependence, chewing tobacco, uncomplicated; Z99.3 Dependence on wheelchair; Z79.899 Other long term (current) drug therapy
CPT/HCPCS: 36415; 71045; 74177; 80053; 81000; 83605; 85007; 85027; 87040; 87804; 94640; 94760; 96361; 96365; 96375; G0378

== ENCOUNTER → 2018-06-01 | Outpatient (CLI) | payer MEDICAID ==
[~2018-06-01] MED LIST changes: +CATHETER FLUSH 10 ML SYR IV PRN; +CEFD300C3 PO; +IOHEXOL 350 MG/ML 100 ML (OMNIPAQUE 350) VIAL IV ONE; +LIDO700A45 TD; +METR-197 PO; +NS 100 ML (IVPB) BAG IV ONE; +OXYC20TA54 PO; +OXYC30TA77 PO; +RECEIVED CONTRAST (Hold Metformin) IV SCH
--- NOTE | 2018-06-01 13:22 | Diagnostic Imaging Report ---
PROCEDURE: CT chest with contrast only. TECHNIQUE: Multiple contiguous axial images were obtained through the chest after administration of intravenous contrast. INDICATION: Followup lung lesions. COMPARISON: Correlation is made with CT abdomen pelvis study from 09/26/2017. FINDINGS: No axillary lymphadenopathy is seen. Right paratracheal node measures approximately 1.8 x 1.1 cm, indeterminate. There is soft tissue prominence in the subcarinal location measuring approximately 4.6 x 2.7 cm. No definite hilar lymphadenopathy is seen. No pericardial or pleural fluid is identified. Parenchymal evaluation does show some scarring in the right lung apex. A subpleural nodule in the right upper lobe measures 7 mm, image #38. There is a subpleural nodule posterolateral left lower lobe measuring 7 mm. Lingular subpleural nodule measures 8 mm, image #51. There are innumerable interstitial nodular opacities involving bilateral upper lobes and to a lesser degree in the superior segments of the lower lobes. The nodules noted posteriorly in the left lower lobe on prior CT have significantly improved but several nodules remain. Central airways are patent. Upper abdomen is unremarkable. IMPRESSION: Significant interstitial nodular infiltrates of bilateral upper and lower lobes. Findings are likely on an infectious/inflammatory basis. Atypical infection is a possibility. A similar-appearing infiltrate was seen on the September 2017 exam and is improved in the left lower lobe since that time. Patient does have some mediastinal lymphadenopathy which is indeterminate but potentially be reactive. Continued close followup is recommended to confirm clearing. Dictated by: Dictated on workstation # [id number]
== END ==
LOC: RAD 12:00
DX: G20 Parkinson's disease (principal); R91.8 Other nonspecific abnormal finding of lung field; R59.0 Localized enlarged lymph nodes
CPT/HCPCS: 71260

== ENCOUNTER 2019-05-22 15:32 | Emergency (ER) | payer MEDICAID ==
[~2019-05-22 15:32] MED LIST changes: -CATHETER FLUSH 10 ML SYR IV PRN; -DULO60CA58 PO; +DULO60CA59 PO; -IOHEXOL 350 MG/ML 100 ML (OMNIPAQUE 350) VIAL IV ONE; +METR-145 PO; -METR-197 PO; -NS 100 ML (IVPB) BAG IV ONE; -RECEIVED CONTRAST (Hold Metformin) IV SCH
== END 2019-05-22 15:50 | disposition left against medical advice (07) ==
LOC: EDUNIT# 15:32 → ER 15:33
DX: R25.1 Tremor, unspecified (principal)

== ENCOUNTER 2020-02-26 20:47 | Emergency (ER) | payer MEDICAID ==
[~2020-02-26] VITALS: Ht 198 cm; Wt 76.2 kg
[~2020-02-26 20:47] MED LIST changes: -CHLO473M MM; +LINE600T12 PO; -LINE600T5 PO; +NFCHLORHGL MM; -OXYC-465 PO; +OXYC-556 PO; -PANT40TA3 PO; +PANT40TA52 PO
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
[2020-02-26] MEDS ORDERED: fentaNYL INJECTION 100 MCG/2 ML AMP IVP ONE (21:00)
[2020-02-26 21:05] LABS: BASOPHILS # (AUTO) 0.1 10^3/uL (0.0-0.1); BASOPHILS % (AUTO) 0 % (0-10); EOSINOPHILS # (AUTO) 0.1 10^3/uL (0.0-0.3); EOSINOPHILS % (AUTO) 0 % (0-10); HEMATOCRIT 45 % (40-54); HEMOGLOBIN 14.4 g/dL (13.3-17.7); LYMPHOCYTES # (AUTO) 4.2 10^3/uL (1.0-4.0); LYMPHOCYTES % (AUTO) 20 % (12-44); MEAN CORPUSCULAR HEMOGLOBIN 32 pg (25-34); MEAN CORPUSCULAR HGB CONC 32 g/dL (32-36); MEAN CORPUSCULAR VOLUME 99 fL (80-99); MEAN PLATELET VOLUME 10.5 fL (9.0-12.2); MONOCYTES # (AUTO) 0.9 10^3/uL (0.0-1.0); MONOCYTES % (AUTO) 4 % (0-12); NEUTROPHILS # (AUTO) 14.9 10^3/uL (1.8-7.8); NEUTROPHILS % (AUTO) 71 % (42-75); PLATELET COUNT 275 10^3/uL (130-400); WHITE BLOOD COUNT 21.1 10^3/uL (4.3-11.0)
[2020-02-26 21:11] LABS: ALBUMIN 4.3 GM/DL (3.2-4.5)
[2020-02-26 21:12] LABS: CHLORIDE 103 MMOL/L (98-107); POTASSIUM 3.6 MMOL/L (3.6-5.0); SODIUM 141 MMOL/L (135-145)
[2020-02-26 21:13] LABS: CALCIUM 9.2 MG/DL (8.5-10.1)
[2020-02-26 21:14] LABS: GLUCOSE 80 MG/DL (70-105); TOTAL PROTEIN 7.4 GM/DL (6.4-8.2)
[2020-02-26 21:15] LABS: CARBON DIOXIDE 24 MMOL/L (21-32)
[2020-02-26] MEDS ORDERED: NS 100 ML (IVPB) BAG IV ONE (21:15)
[2020-02-26] MEDS ORDERED: HOLD METFORMIN - RECEIVED CONTRAST 20 ML VIAL IV SCH (21:15)
[2020-02-26] MEDS ORDERED: LORazepam INJ 2 MG/ML (ATIVAN) VIAL IVP PRN (21:15)
[2020-02-26] MEDS ORDERED: IOHEXOL 350 MG/ML 100 ML (OMNIPAQUE 350) VIAL IV ONE (21:15)
[2020-02-26 21:16] LABS: BILIRUBIN,TOTAL 1.1 MG/DL (0.1-1.0)
[2020-02-26 21:17] LABS: ALKALINE PHOSPHATASE 72 U/L (40-136); CREATININE SERUM 0.92 MG/DL (0.60-1.30); GFR ESTIMATED > 60
[2020-02-26 21:18] LABS: BUN/CREATININE RATIO 13
[2020-02-26 21:20] LABS: ALANINE AMINOTRANSFERASE 80 U/L (0-55)
--- NOTE | 2020-02-26 22:13 | Diagnostic Imaging Report ---
PROCEDURE: CT lumbar spine without contrast. TECHNIQUE: Multiple contiguous axial images were obtained through the lumbar spine without the use of intravenous contrast. Sagittal and coronal reformations were then performed. Auto Exposure Controls were utilized during the CT exam to meet ALARA standards for radiation dose reduction. INDICATION: Trauma, back pain. COMPARISON: None. FINDINGS: Alignment of the lumbar column is normal. There is a nondisplaced fracture of the right S1 segment of the sacrum which tracks inferiorly. The entire sacrum is not evaluated. The SI joints are symmetric. No obvious hematoma is seen. The lumbar spine appears well-aligned. Central canal is patent. IMPRESSION: 1. Nondisplaced right sacral S1 segment fracture. 2. Lumbar spine is intact. Dictated by: Dictated on workstation # [id number]
--- NOTE | 2020-02-26 22:16 | Diagnostic Imaging Report ---
PROCEDURE: CT head and CT cervical spine without contrast. TECHNIQUE: Multiple contiguous axial images were obtained through the brain and cervical spine without the use of intravenous contrast. Sagittal and coronal reformations through the cervical spine were then performed. Auto Exposure Controls were utilized during the CT exam to meet ALARA standards for radiation dose reduction. INDICATION: Head trauma. COMPARISON: None. CT HEAD: The ventricles are normal in size, shape and position. There is no midline shift or mass effect. There is no hemorrhage or evidence of acute ischemia. There is a right parietal scalp hematoma. No underlying skull fracture is seen. Motion artifact is present. The paranasal sinuses and mastoids are clear IMPRESSION: 1. No acute abnormality. CT CERVICAL SPINE: Alignment is normal. There is no subluxation or fracture. No significant degeneration is seen. There is no osseous lesion. IMPRESSION: 1. No traumatic malalignment or fracture. Dictated by: Dictated on workstation # [id number]
[2020-02-26] MEDS: NS IV 1000 ML 1,000 ML IV SCH ×2 (22:24→23:13)
--- NOTE | 2020-02-26 22:25 | Diagnostic Imaging Report ---
PROCEDURE: CT chest, abdomen, and pelvis with contrast. TECHNIQUE: Multiple contiguous axial images were obtained through the chest, abdomen, and pelvis after the administration of intravenous contrast. Auto Exposure Controls were utilized during the CT exam to meet ALARA standards for radiation dose reduction. INDICATION: Trauma COMPARISON: None. CT CHEST: The heart and mediastinal structures are unremarkable. Central airways are normal. There are subtle infiltrates throughout both lungs, possibly pneumonia. Please correlate clinically. No hemothorax, pneumothorax or pulmonary contusion is seen. Ribs, sternum and thoracic spine are grossly unremarkable. No obvious rib fracture is identified. IMPRESSION: 1. Nonspecific pulmonary infiltrates. 2. No trauma seen within the chest. CT ABDOMEN AND PELVIS: The gallbladder is surgically absent. Solid organs, vascular structures and bowel are unremarkable. There is moderate constipation. There is some distention of the urinary bladder. No solid organ injury is identified. There is no free air or free fluid. There is a nondisplaced fracture of the left acetabulum. The visualized portions of the left hip are intact. Additionally, there is a nondisplaced fracture of the right S1 sacral segment. The SI joints are symmetric. Additionally, there is a slightly displaced fracture of the posterior and anterior column of the left acetabulum. Nondisplaced fracture of the right inferior pubic ramus is noted. The symphysis is approximated. IMPRESSION: 1. Complex pelvic fractures. 2. Nondisplaced right sacral S1 segment fracture. 3. No solid organ, bowel or bladder injury. Dictated by: Dictated on workstation # [id number]
[2020-02-26] MEDS ORDERED: TETANUS,DIPTH,PERTUSS P/F (BOOSTRIX) 0.5 ML VIAL IM ONE (22:30)
--- NOTE | 2020-02-26 22:30 | NUR ---
RIGHT ELBOW CLEANED AND TELFA DRSG PLACED. RIGHT BACK HEAD DEEP LAC CLEANED, Susan BLAS APRN UNABLE TO STAPLE SITE.
[2020-02-26] MEDS ORDERED: fentaNYL INJECTION 100 MCG/2 ML AMP ONE (23:04)
[2020-02-26] MEDS ORDERED: ACETAMINOPHEN 650 MG SUPP (TYLENOL) PR ONE (23:15)
[2020-02-26] MEDS ORDERED: NS IV 1000 ML 1,000 ML IV SCH (23:15)
[2020-02-26 23:47] VITALS: BP 102/72
[2020-02-26 23:47] LABS: INR 1.2 (0.8-1.4); PROTHROMBIN TIME PATIENT 15.1 SEC (12.2-14.7)
[2020-02-26 23:53] LABS: BILIRUBIN,URINE NEGATIVE (NEGATIVE); CLARITY,URINE SL CLOUDY; COLOR,URINE YELLOW; GLUCOSE, URINE (UA) NEGATIVE (NEGATIVE); KETONES,URINE NEGATIVE (NEGATIVE); LEUKOCYTE ESTERASE ,URINE NEGATIVE (NEGATIVE); NITRITE,URINE NEGATIVE (NEGATIVE); PROTEIN,URINE 1+ (NEGATIVE)
[2020-02-27 00:03] LABS: BACTERIA,URINE TRACE /HPF; RBC,URINE 50-100 /HPF; SQUAMOUS EPITHELIAL CELL,UR RARE /HPF; WBC,URINE RARE /HPF
[2020-02-27 00:14] LABS: AMPHETAMINE SCREEN, URINE NEGATIVE (NEGATIVE); BENZODIAZEPINES SCREEN URINE POSITIVE (NEGATIVE); CANNABINOID SCREEN, URINE POSITIVE (NEGATIVE); COCAINE SCREEN URINE NEGATIVE (NEGATIVE); METHAMPHETAMINE SCREEN URINE S NEGATIVE (NEGATIVE)
[2020-02-27 00:15] LABS: BARBITURATE SCREEN URINE NEGATIVE (NEGATIVE); METHADONE STAT NEGATIVE (NEGATIVE); OPIATE SCREEN URINE NEGATIVE (NEGATIVE); OXYCODONE STAT POSITIVE (NEGATIVE); PROPOXYPHENE STAT NEGATIVE (NEGATIVE); TRICYCLIC ANTIDEPRESSANTS SCRE POSITIVE (NEGATIVE)
--- NOTE | 2020-02-27 00:27 | NUR ---
LAB WORK RESULTS FAXED TO [facility]
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
== END 2020-02-26 23:47 | disposition short-term general hospital (02) ==
LOC: EDUNIT# 20:47 → ER 20:48
DX: S32.19XA Other fracture of sacrum, initial encounter for closed fracture (principal); S32.435A Nondisplaced fracture of anterior column [iliopubic] of left acetabulum, initial encounter for closed fracture; S32.445A Nondisplaced fracture of posterior column [ilioischial] of left acetabulum, initial encounter for closed fracture; S80.211A Abrasion, right knee, initial encounter; S50.311A Abrasion of right elbow, initial encounter; R00.0 Tachycardia, unspecified; K21.9 Gastro-esophageal reflux disease without esophagitis; G89.29 Other chronic pain; M54.9 Dorsalgia, unspecified; F32.9 Major depressive disorder, single episode, unspecified; Z88.8 Allergy status to other drugs, medicaments and biological substances; Z88.0 Allergy status to penicillin; Z88.1 Allergy status to other antibiotic agents; Z82.61 Family history of arthritis; Z83.3 Family history of diabetes mellitus; Z79.891 Long term (current) use of opiate analgesic; Z20.828 Contact with and (suspected) exposure to other viral communicable diseases; V09.9XXA Pedestrian injured in unspecified transport accident, initial encounter; W22.8XXA Striking against or struck by other objects, initial encounter
CPT/HCPCS: 51702; 70450; 71260; 72125; 72131; 72170; 74177; 80053; 80306; 81000; 83605; 85025; 85610; 85730; 86850; 86900; 86901; 87040; 87804; 99285; G0480; U0002; 36415; 80320; 87635

== ENCOUNTER → 2020-05-16 | Outpatient (CLI) | payer MEDICAID | LOC: WOUNDCARE 09:03 | PROVIDERS: ATTEND Surgery | DX: L89.152 Pressure ulcer of sacral region, stage 2 (principal); L89.222 Pressure ulcer of left hip, stage 2; L89.810 Pressure ulcer of head, unstageable; G20 Parkinson's disease; E44.1 Mild protein-calorie malnutrition | CPT/HCPCS: A6212; G0463; 99213 ==

== ENCOUNTER 2020-05-22 11:45 | Day surgery (SDC) | payer MEDICAID ==
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
[~2020-05-22] VITALS: Ht 196 cm; Wt 76.2 kg
[2020-05-22 12:08] VITALS: BP 100/65
[2020-05-22] MEDS ORDERED: LIDOCAINE PF 2% 5 ML (XYLOCAINE) VIAL ONE (14:29)
[2020-05-22] MEDS ORDERED: LIDOCAINE PF 2% 5 ML (XYLOCAINE) VIAL INJ ONE (14:45)
[2020-05-22 14:48] VITALS: BP 100/65
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
== END 2020-05-22 14:50 | disposition home or self-care (01) ==
LOC: SDC 11:45
PROVIDERS: ATTEND Surgery
DX: K94.23 Gastrostomy malfunction (principal); R63.4 Abnormal weight loss; K21.9 Gastro-esophageal reflux disease without esophagitis; K22.2 Esophageal obstruction; F17.210 Nicotine dependence, cigarettes, uncomplicated; Z79.899 Other long term (current) drug therapy; Z88.0 Allergy status to penicillin; Z88.1 Allergy status to other antibiotic agents; Z88.8 Allergy status to other drugs, medicaments and biological substances

== ENCOUNTER → 2020-05-22 | Outpatient (CLI) | payer MEDICAID | LOC: LAB 11:08 | PROVIDERS: ATTEND Surgery | DX: L89.152 Pressure ulcer of sacral region, stage 2 (principal); L89.222 Pressure ulcer of left hip, stage 2; L89.810 Pressure ulcer of head, unstageable; G20 Parkinson's disease; E44.1 Mild protein-calorie malnutrition | CPT/HCPCS: 36415; 84134 ==

== ENCOUNTER → 2020-05-29 | Outpatient (CLI) | payer MEDICAID | LOC: WOUNDCARE 16:00 | PROVIDERS: ATTEND Orthopaedic Surgery Hand Surgery | DX: L89.150 Pressure ulcer of sacral region, unstageable (principal); L89.222 Pressure ulcer of left hip, stage 2; L89.813 Pressure ulcer of head, stage 3; G20 Parkinson's disease; E44.1 Mild protein-calorie malnutrition ==

== ENCOUNTER → 2020-06-14 | Outpatient (CLI) | payer MEDICAID | LOC: WOUNDCARE 12:30 | PROVIDERS: ATTEND Surgery | DX: L89.150 Pressure ulcer of sacral region, unstageable (principal); L89.813 Pressure ulcer of head, stage 3; G20 Parkinson's disease; I96 Gangrene, not elsewhere classified ==

== ENCOUNTER → 2020-06-20 | Outpatient (CLI) | payer MEDICAID | LOC: WOUNDCARE 15:17 | PROVIDERS: ATTEND Surgery | DX: I96 Gangrene, not elsewhere classified (principal); L89.813 Pressure ulcer of head, stage 3; L89.150 Pressure ulcer of sacral region, unstageable; G20 Parkinson's disease ==

== ENCOUNTER → 2020-06-28 | Outpatient (CLI) | payer MEDICAID | LOC: WOUNDCARE 09:00 | PROVIDERS: ATTEND Orthopaedic Surgery Hand Surgery | DX: L89.153 Pressure ulcer of sacral region, stage 3 (principal); I96 Gangrene, not elsewhere classified; L89.813 Pressure ulcer of head, stage 3; G20 Parkinson's disease; L97.518 Non-pressure chronic ulcer of other part of right foot with other specified severity; L97.528 Non-pressure chronic ulcer of other part of left foot with other specified severity ==

== ENCOUNTER → 2020-07-26 | Outpatient (CLI) | payer MEDICAID | LOC: WOUNDCARE 09:15 | PROVIDERS: ATTEND Orthopaedic Surgery Hand Surgery | DX: L89.153 Pressure ulcer of sacral region, stage 3 (principal); L89.813 Pressure ulcer of head, stage 3; G20 Parkinson's disease; L97.512 Non-pressure chronic ulcer of other part of right foot with fat layer exposed ==

== ENCOUNTER → 2021-01-31 | Outpatient (CLI) | payer MEDICAID ==
--- NOTE | 2021-01-31 16:02 | Diagnostic Imaging Report ---
INDICATION: Pulmonary sarcoidosis, asthma. TECHNIQUE: Two-view chest, 2:33 p.m. CORRELATION STUDY: 09/26/2017. FINDINGS: The heart size, mediastinal configuration, and pulmonary vasculature are within normal limits. There are some residual prominent interstitial markings throughout both lung henry. However, overall significantly improved. Definitive infiltrate-like opacity is not suggested. Lung henry are mildly hyperinflated. Visualized osseous structures are unremarkable. IMPRESSION: 1. Moderately prominent interstitial markings throughout both lung henry, likely chronic changes. No definitive superimposed infiltrate. No definitive abnormal mass-like appearance about the uzair. Dictated by: Dictated on workstation # [id number]
== END ==
LOC: RAD 14:06
PROVIDERS: ATTEND Internal Medicine Critical Care Medicine
DX: D86.0 Sarcoidosis of lung (principal); J45.20 Mild intermittent asthma, uncomplicated; K21.9 Gastro-esophageal reflux disease without esophagitis
CPT/HCPCS: 71046

== ENCOUNTER → 2021-05-05 | Outpatient (CLI) | payer MEDICAID | LOC: WOUNDCARE 13:56 | PROVIDERS: ATTEND Family Medicine | DX: L97.512 Non-pressure chronic ulcer of other part of right foot with fat layer exposed (principal); G90.09 Other idiopathic peripheral autonomic neuropathy; M20.41 Other hammer toe(s) (acquired), right foot; G21.9 Secondary parkinsonism, unspecified; M24.574 Contracture, right foot | CPT/HCPCS: 99212 ==

== ENCOUNTER → 2021-05-05 | Outpatient (CLI) | payer MEDICAID ==
--- NOTE | 2021-05-05 16:41 | Diagnostic Imaging Report ---
INDICATION: Chronic ulcerations. FINDINGS: Three views of the right great toe show flexion at the interphalangeal joint which makes visualization less than optimal; however, there is no fracture, dislocation, or other acute bony abnormality. There is no radiographic evidence of osteomyelitis. No focal soft tissue mass or foreign body is seen. IMPRESSION: No acute abnormality is evident. Dictated by: Dictated on workstation # [id number]
== END ==
LOC: RAD 15:04
PROVIDERS: ATTEND Family Medicine
DX: L97.512 Non-pressure chronic ulcer of other part of right foot with fat layer exposed (principal)
CPT/HCPCS: 73660

== ENCOUNTER → 2021-05-12 | Outpatient (CLI) | payer MEDICAID | LOC: WOUNDCARE 09:35 | PROVIDERS: ATTEND Family Medicine | DX: L97.512 Non-pressure chronic ulcer of other part of right foot with fat layer exposed (principal); G90.09 Other idiopathic peripheral autonomic neuropathy; M20.41 Other hammer toe(s) (acquired), right foot; G21.9 Secondary parkinsonism, unspecified; M24.574 Contracture, right foot; L03.031 Cellulitis of right toe; I96 Gangrene, not elsewhere classified | CPT/HCPCS: 11042; A6197; G0463 ==

== ENCOUNTER → 2021-05-21 | Outpatient (CLI) | payer MEDICAID | LOC: WOUNDCARE 11:09 | PROVIDERS: ATTEND Family Medicine | DX: I96 Gangrene, not elsewhere classified (principal); G21.9 Secondary parkinsonism, unspecified; L03.031 Cellulitis of right toe; M24.574 Contracture, right foot; M20.41 Other hammer toe(s) (acquired), right foot; G90.09 Other idiopathic peripheral autonomic neuropathy; L97.512 Non-pressure chronic ulcer of other part of right foot with fat layer exposed | CPT/HCPCS: 99212 ==

== ENCOUNTER 2021-06-09 11:17 | Outpatient (CLI) | payer MEDICAID ==
[~2021-06-09] VITALS: Ht 195.6 cm; Wt 76.2 kg
[2021-06-09 11:23] VITALS: BP 111/74
[2021-06-09] MEDS ORDERED: CASIRIVIMAB/IMDEVIMAB 1,200 MG in NS (IVPB) 50 ML IV ONE (11:30)
[2021-06-09] MEDS ORDERED: ONDANSETRON 4 MG/2 ML (SDV) Z0FRAN IV PRN (11:30)
[2021-06-09] MEDS ORDERED: ACETAMINOPHEN 500 MG TAB (TYLENOL) PO PRN (11:30)
[2021-06-09] MEDS ORDERED: EPINEPHrine INJECTION 1 MG/ML AMP IM PRN (11:30)
[2021-06-09] MEDS ORDERED: diphenhydrAMINE 50 MG/ML INJ (BENADRYL) IV PRN (11:30)
[2021-06-09 12:30] VITALS: BP 117/71
== END 2021-06-09 12:45 | disposition home or self-care (01) ==
LOC: INFUSION 11:17
PROVIDERS: ATTEND Pediatrics
DX: U07.1 COVID-19 (principal)

== ENCOUNTER 2021-08-27 12:20 | Observation (INO) | payer MEDICAID ==
[~2021-08-27] VITALS: Ht 198.1 cm; Wt 68.3 kg
[2021-08-27 13:54] VITALS: BP 103/69
[2021-08-27] MEDS ORDERED: NS IV 1000 ML 1,000 ML IV SCH (14:45)
[2021-08-27 16:00] VITALS: BP 117/75
[2021-08-27] MEDS ORDERED: IOHEXOL 350 MG/ML 100 ML (OMNIPAQUE 350) VIAL IV ONE (16:30)
[2021-08-27] MEDS ORDERED: CATHETER FLUSH 10 ML SYR IV PRN (16:30)
[2021-08-27] MEDS ORDERED: DIATRIZOATE MEGLUM/SODIUM 37% 120 ML (GASTROGRAFIN) PO ONE (16:30)
[2021-08-27] MEDS ORDERED: NS 100 ML (IVPB) BAG IV ONE (16:30)
[2021-08-27] MEDS ORDERED: HOLD METFORMIN - RECEIVED CONTRAST 20 ML VIAL IV SCH (16:30)
[2021-08-27 16:40] LABS: BASOPHILS # (AUTO) 0.1 10^3/uL (0.0-0.1); BASOPHILS % (AUTO) 1 % (0-10); EOSINOPHILS # (AUTO) 0.5 10^3/uL (0.0-0.3); EOSINOPHILS % (AUTO) 7 % (0-10); HEMATOCRIT 38 % (40-54); HEMOGLOBIN 12.6 g/dL (13.3-17.7); LYMPHOCYTES # (AUTO) 2.3 10^3/uL (1.0-4.0); LYMPHOCYTES % (AUTO) 30 % (12-44); MEAN CORPUSCULAR HEMOGLOBIN 30 pg (25-34); MEAN CORPUSCULAR HGB CONC 33 g/dL (32-36); MEAN CORPUSCULAR VOLUME 92 fL (80-99); MEAN PLATELET VOLUME 10.7 fL (9.0-12.2); MONOCYTES # (AUTO) 0.5 10^3/uL (0.0-1.0); MONOCYTES % (AUTO) 6 % (0-12); NEUTROPHILS # (AUTO) 4.3 10^3/uL (1.8-7.8); NEUTROPHILS % (AUTO) 56 % (42-75); PLATELET COUNT 212 10^3/uL (130-400); WHITE BLOOD COUNT 7.6 10^3/uL (4.3-11.0)
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
[2021-08-27 16:49] LABS: POTASSIUM 4.4 MMOL/L (3.6-5.0)
--- NOTE | 2021-08-27 16:49 | Diagnostic Imaging Report ---
EXAMINATION: CT abdomen and pelvis with intravenous contrast. TECHNIQUE: Multiple contiguous axial images were obtained through the abdomen and pelvis after the uneventful administration of intravenous contrast. All CT scans use one or more of the following dose optimizing techniques: automated exposure control, MA and/or KvP adjustment based on patient size and exam type or iterative reconstruction. HISTORY: None given. COMPARISON: 02/26/2020. FINDINGS: Lung bases: Consolidation within the left lung base. Solid organs: The liver is normal without focal lesion. The gallbladder is normal. There is no biliary ductal dilation. Pancreas is normal. Spleen is normal. Adrenal glands are normal. The kidneys are normal without hydronephrosis. Bowel: The stomach and small bowel are normal without obstruction. There is large amount of stool seen within the colon. No findings of acute appendicitis. Peritoneum: There is no intraperitoneal free fluid or free air. No suspicious lymphadenopathy. Vasculature: Normal without aneurysm. Musculoskeletal: Degenerative changes of the spine without suspicious osseous lesion or compression fracture. Surgical changes of the left pelvis. Pelvis: The prostate gland is normal. The urinary bladder is normal. IMPRESSION: 1. Large volume of stool seen throughout the colon compatible with history of constipation. No bowel obstruction. 2. No other acute abnormality in the abdomen or pelvis. 3. Left basilar consolidation which can be seen with pneumonia or aspiration. Dictated by: Dictated on workstation # [id number]
[2021-08-27 16:51] LABS: TOTAL PROTEIN 7.3 GM/DL (6.4-8.2)
[2021-08-27 16:53] LABS: BILIRUBIN,TOTAL 0.5 MG/DL (0.1-1.0)
[2021-08-27 16:55] LABS: CREATININE SERUM 0.85 MG/DL (0.60-1.30)
--- NOTE | 2021-08-27 17:11 | Consultation - Surgery ---
EMEKA CARDOZO 08/27/211710: History of Present Illness History of Present Illness Patient Consulted On(nancy/time) 08/27/21 17:05 Date Seen by Provider: Aug 27, 2021 Time Seen by Provider: 17:05 Reason for Visit: Abdominal pain History of Present Illness Mr. Dos Santos is a 40 year old male with a complex neurological history who presented with abdominal pain. He is able to communicate slightly with slight nods of his head; he is unable to provide a history. He reports he has abdominal pain but is unable to provide any more detailed information than that. Further history provided via chart review: The following is obtained from his caregiver: He normally doesn't poop regularly but she can usually can get him to go, had pain in right side last week and she thought it was constipation, tried some stool softeners 3 days ago twice daily and milk of mag over the last week and it didn't help. Yesterday had a whole bottle of mag citrate and a Fleet's enema with no success. He has required enemas in the past as well as disimpaction. He has not vomited recently. CT abdomen and pelvis with contrast showed a large amount of stool in the colon consistent with constipation, no signs of obstruction of the bowel. No acute abnormalities. Left basilar consolidation is present in the lung. Allergies and Home Medications Allergies Coded Allergies: Penicillins (Verified Allergy, Mild, 05/26/17) azithromycin (Verified Allergy, Mild, 05/26/17) quetiapine fumarate (Verified Allergy, Unknown, 05/26/17) Patient Home Medication List ALPRAZolam (ALPRAZolam) 0.25 Mg Tablet, 1 TAB PO DAILY, (Reported) Entered as Reported by: SUHAIL HULL on 08/27/211718 Last Action: Continued ALPRAZolam (ALPRAZolam) 0.25 Mg Tablet, 0.5 MG PO DAILY, (Reported) Entered as Reported by: SUHAIL HULL on 08/27/211718 Last Action: Reviewed ALPRAZolam (ALPRAZolam) 0.25 Mg Tablet, 0.25 MG PO HS, (Reported) Entered as Reported by: SUHAIL HULL on 08/27/211718 Last Action: Continued Amantadine HCl (Amantadine) 100 Mg Tablet, 100 MG PO BID, (Reported) Entered as Reported by: SUHAIL HULL on 08/27/211728 Last Action: Converted Buprenorphine HCl (Belbuca) 300 Mcg Film, 1 FILM BC Q12H, (Reported) Entered as Reported by: SUHAIL HULL on 08/27/211728 Last Action: Converted Diclofenac Sodium (Diclofenac Sodium) 100 Gm Gel..gram., 4 GM TOP QID, (Reported) Entered as Reported by: SUHAIL HULL on 08/27/211728 Last Action: Continued Gabapentin (Gabapentin) 600 Mg Tablet, 600 MG PO TID, (Reported) Entered as Reported by: SUHIAL HULL on 08/27/211726 Last Action: Continued Ibuprofen (Ibuprofen) 800 Mg Tablet, 800 MG PO Q8H PRN for PAIN-MILD, (Reported) Entered as Reported by: SUHAIL HULL on 08/27/211726 Last Action: Held Lactulose (Lactulose) 20 Gm/30 Ml Solution, 10 GM PO BID PRN for CONSTIPATION- 1ST LINE Prescribed by: SUHAIL HULL on 08/28/21 1113 Methocarbamol (Methocarbamol) 500 Mg Tablet, 2 TAB PO BID, (Reported) Entered as Reported by: SUHAIL HULL on 08/27/211726 Last Action: Continued Montelukast Sodium (Singulair) 10 Mg Tablet, 10 MG PO DAILY PRN for allergies, (Reported) Entered as Reported by: SUHAIL HULL on 08/27/211723 Last Action: Held Oxycodone HCl/Acetaminophen (Oxycodone-Acetaminophen 5-325) 1 Each Tablet, 1 EACH PO BID PRN for PAIN-SEVERE, (Reported) Entered as Reported by: SUHAIL HULL on 08/27/211723 Last Action: Continued Pantoprazole Sodium (Pantoprazole Sodium) 40 Mg Tablet.dr, 40 MG PO DAILY, (Reported) Entered as Reported by: SUHAIL HULL on 08/27/211723 Last Action: Continued Polyethylene Glycol 3350 (Polyethylene Glycol 3350) 17 Gm Powd.pack, 17 GM PO TID PRN for CONSTIPATION-1ST LINE, (Reported) Entered as Reported by: SUHAIL HULL on 08/27/211723 Last Action: Continued Rotigotine (Neupro) 1 Each Patch.td24, 1 PATCH TD DAILY, (Reported) Entered as Reported by: SUHAIL HULL on 08/27/211726 Last Action: Converted Trazodone HCl (Trazodone HCl) 100 Mg Tablet, 50-200 MG PO HS, (Reported) Entered as Reported by: SUHAIL HULL on 08/27/211719 Last Action: Continued Discontinued Medications Alprazolam (Alprazolam) 1 Mg Tablet, 1 MG PO DAILY, (Reported) Entered as Reported by: EMMIE MUNIZ on 01/17/172147 Last Action: Discontinued Alprazolam (Alprazolam) 1 Mg Tablet, 2 MG PO HS, (Reported) Entered as Reported by: KATTY ZAPATA on 09/27/17853 Last Action: Discontinued Amitriptyline HCl (Amitriptyline HCl) 25 Mg Tablet, 50 MG PO HS, (Reported) Entered as Reported by: EMMIE MUNIZ on 01/17/172147 Last Action: Discontinued Dexlansoprazole (Dexilant) 60 Mg Alberto., 60 MG PO DAILY, (Reported) Entered as Reported by: TERRANCE ROMERO on 05/25/17 0935 Last Action: Discontinued Gabapentin (Gabapentin) 300 Mg Capsule, 300 MG PO TID, (Reported) Discontinued Reason: Prescription changed Entered as Reported by: KATTY ZAPATA on 09/09/15 0823 Levofloxacin (Levaquin) 750 Mg Tablet, 750 MG PO DAILY Prescribed by: MATY FORD on 09/27/17 0947 Last Action: Discontinued Lidocaine (Lidocaine 5% Patch) 1 Each Adh..patch, 1 PATCH TD DAILY PRN for BREAKTHROUGH PAIN, (Reported) Entered as Reported by: KEITH MCKEON on 09/26/172129 Last Action: Discontinued Oxycodone HCl (Oxycontin) 30 Mg Tab.er.12h, 30 MG PO DAILY, (Reported) Entered as Reported by: KEITH MCKEON on 09/26/172128 Last Action: Discontinued Oxycodone HCl (Oxycontin) 20 Mg Tab.er.12h, 20 MG PO HS, (Reported) Entered as Reported by: KEITH MCKEON on 09/26/172128 Last Action: Discontinued Pantoprazole Sodium (Pantoprazole Sodium) 40 Mg Tablet., 40 MG PO DAILY, (Reported) Entered as Reported by: EMMIE MUNIZ on 01/17/172147 Last Action: Discontinued Zolpidem Tartrate (Zolpidem Tartrate) 10 Mg Tablet, 10 MG PO HS, (Reported) Entered as Reported by: KEITH MCKEON on 09/26/172128 Last Action: Discontinued Past Ouwscvt-Fwwdwi-Mqyaav Hx Patient Social History Type Used: Smokeless Tobacco 2nd Hand Smoke Exposure: No Recent Hopitalizations: No Alcohol Use?: No Substance type: Nicotine Have you traveled recently?: No Immunizations Up To Date Tetanus Booster (TDap): Less than 5yrs PED Vaccines UTD: Yes Date of Pneumonia Vaccine: Jun 16, 2009 Date of Influenza Vaccine: Jul 11, 2014 Seasonal Allergies Seasonal Allergies: No Surgeries History of Surgeries: Yes (EGD WITH DILATION, PEG TUBE/ REMOVED, FROZEN SHOULDER; KIDNEY STONE REMOVAL) Surgeries: Abdominal, Gallbladder, Orthopedic, Renal Respiratory History of Respiratory Disorde: Yes (BRONCHITIS/PNEUMONIA; CHRONIC COUGH; SARCO IDOSIS) Respiratory Disorders: Pneumonia Cardiovascular History of Cardiac Disorders: No Neurological History of Neurological Disord: Yes (PARKINSONISM) Neurological Disorders: Seizure Disorder Reproductive System Hx Reproductive Disorders: No Sexually Transmitted Disease: No HIV/AIDS: No Genitourinary History of Genitourinary Disor: Yes Genitourinary Disorders: Kidney Stones Gastrointestinal History of Gastrointestinal Di: Yes (ESOPHAGEAL STRICTURES-S/P DILATIONS, ) Gastrointestinal Disorders: Gastroesophageal Reflux, Hiatal Hernia, Gall Bladder Disease Musculoskeletal History of Musculoskeletal Dis: Yes (RIGHT SHOULDER FROZEN; CHRONIC PAIN ) Musculoskeletal Disorders: Degenerate Disk Disease, Chronic Back Pain Endocrine History of Endocrine Disorders: No HEENT History of HEENT Disorders: Yes (POOR DENTITION) Loss of Vision: Denies Hearing Impairment: Denies Cancer History of Cancer: No Psychosocial History of Psychiatric Problem: Yes Behavioral Health Disorders: Depression Integumentary History of Skin or Integumenta: No Blood Transfusions History of Blood Disorders: No Family Medical History Family Medial History: Dysphagia 19 MOTHER Family history: Arthritis 19 MOTHER Family history: Diabetes mellitus 19 FATHER Family history: Thyroid disorder 19 MOTHER Review of Systems-General ROS-Unable to Obtain: Unable to obtain ROS d/t patient status Physical Exam-General Problems Physical Exam Vital Signs Vital Signs - First Documented 08/27/21 08/27/21 13:31 13:54 Temp 37.4 Pulse 86 Resp 18 B/P (MAP) 103/69 (80) Pulse Ox 98 O2 Delivery Room Air Capillary Refill : General Appearance: no apparent distress, thin HEENT: PERRL/EOMI; No scleral icterus (R), No scleral icterus (L) Neck: non-tender, normal inspection; No lymphadenopathy (R), No lymphadenopathy (L) Respiratory: chest non-tender, lungs clear, normal breath sounds, no respira tory distress, no accessory muscle use Cardiovascular: normal peripheral pulses, regular rate, rhythm, no edema, no murmur Peripheral Pulses: 2+ Dorsalis Pedis (R), 2+ Left Dors-Pedis (L), 2+ Radial Pulses (R), 2+ Radial Pulses (L) Gastrointestinal: abnormal bowel sounds (Bowel sounds absent), distended (Abdomen firm and distended); No guarding, No rebound; tenderness Extremities: normal inspection, no pedal edema Neurologic/Psychiatric: alert Skin: normal color, warm/dry Lymphatic: no adenopathy (Head and neck) Data Review Labs Laboratory Tests 08/27/21 16:30: White Blood Count 7.6, Red Blood Count 4.16L, Hemoglobin 12.6L, Hematocrit 38L, Mean Corpuscular Volume 92, Mean Corpuscular Hemoglobin 30, Mean Corpuscular Hemoglobin Concent 33, Red Cell Distribution Width 12.8, Platelet Count 212, Mean Platelet Volume 10.7, Immature Granulocyte % (Auto) 0, Neutrophils (%) (Auto) 56, Lymphocytes (%) (Auto) 30, Monocytes (%) (Auto) 6, Eosinophils (%) (Auto) 7, Basophils (%) (Auto) 1, Neutrophils # (Auto) 4.3, Lymphocytes # (Auto) 2.3, Monocytes # (Auto) 0.5, Eosinophils # (Auto) 0.5H, Basophils # (Auto) 0.1, Immature Granulocyte # (Auto) 0.0, Sodium Level 138, Potassium Level 4.4, Chloride Level 102, Carbon Dioxide Level 26, Anion Gap 10, Blood Urea Nitrogen 20H, Creatinine 0.85, Estimat Glomerular Filtration Rate 114, BUN/Creatinine Ratio 24, Glucose Level 60*L, Calcium Level 9.0, Corrected Calcium 9.0, Total Bilirubin 0.5, Aspartate Amino Transf (AST/SGOT) 15, Alanine Aminotransferase (ALT/SGPT) 13, Alkaline Phosphatase 61, Total Protein 7.3, Albumin 4.[address] ABDOMEN/PELVIS W EXAMINATION: CT abdomen and pelvis with intravenous contrast. TECHNIQUE: Multiple contiguous axial images were obtained through the abdomen and pelvis after the uneventful administration of intravenous contrast. All CT scans use one or more of the following dose optimizing techniques: automated exposure control, MA and/or KvP adjustment based on patient size and exam type or iterative reconstruction. HISTORY: None given. COMPARISON: 02/26/2020. FINDINGS: Lung bases: Consolidation within the left lung base. Solid organs: The liver is normal without focal lesion. The gallbladder is normal. There is no biliary ductal dilation. Pancreas is normal. Spleen is normal. Adrenal glands are normal. The kidneys are normal without hydronephrosis. Bowel: The stomach and small bowel are normal without obstruction. There is large amount of stool seen within the colon. No findings of acute appendicitis. Peritoneum: There is no intraperitoneal free fluid or free air. No suspicious lymphadenopathy. Vasculature: Normal without aneurysm. Musculoskeletal: Degenerative changes of the spine without suspicious osseous lesion or compression fracture. Surgical changes of the left pelvis. Pelvis: The prostate gland is normal. The urinary bladder is normal. IMPRESSION: 1. Large volume of stool seen throughout the colon compatible with history of constipation. No bowel obstruction. 2. No other acute abnormality in the abdomen or pelvis. 3. Left basilar consolidation which can be seen with pneumonia or aspiration. Assessment/Plan Assessment/Plan Assessment/Plan Assessment: Abdominal pain - Likely d/t constipation - CT shows large amount of stool in colon - No signs of bowel obstruction - Firm, distended, and tender to palpation Anemia - Hgb 12.6 upon admission - Trend Elevated BUN - Possibly d/t hydration status - Trend Complex neurological history Minimally verbal Plan: Start maintenance IVF Consider docusate and senna to help resolve constipation Alternatively consider magnesium citrate or possible enema Monitor with serial exams and follow for signs of bowel obstruction Consider disimpaction MOIZ KATZ DO 08/28/21 276: History of Present Illness History of Present Illness History of Present Illness Consult requested by Dr. 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 He has been having significant constipation issues. Patient tried an enema yesterday is only able to get a few balls of stool out. He tried a full bottle of mag citrate last night and unable to have any significant bowel movement. He had a digital rectal exam where there is no stool in the vault earlier today by Dr. Gresham and his abdomen has been significantly firm. Patient had imaging last week which was done at an outpatient clinic which was reported to be significant constipation. Patient having significant pain in the abdomen he rates that a proximally an 8 out of 10. He communicates by answering yes or no questions. And also information provided by primary care physician and caregiver. He has had issues with constipation before. Nothing has seemed to really make much of a difference this time. He has some nausea but no emesis. He had a CT scan with oral contrast demonstrating large amount of stool in the colon consistent with constipation no signs of obstruction of the bowel no other acute abnormality, left basilar consolidation. Allergies and Home Medications Allergies Coded Allergies: Penicillins (Verified Allergy, Mild, 05/26/17) azithromycin (Verified Allergy, Mild, 05/26/17) quetiapine fumarate (Verified Allergy, Unknown, 05/26/17) Patient Home Medication List Home Medication List Reviewed: Yes ALPRAZolam (ALPRAZolam) 0.25 Mg Tablet, 1 TAB PO DAILY, (Reported) Entered as Reported by: SUHAIL HULL on 08/27/211718 Last Action: Continued ALPRAZolam (ALPRAZolam) 0.25 Mg Tablet, 0.5 MG PO DAILY, (Reported) Entered as Reported by: SUHAIL HULL on 08/27/211718 Last Action: Reviewed ALPRAZolam (ALPRAZolam) 0.25 Mg Tablet, 0.25 MG PO HS, (Reported) Entered as Reported by: SUHAIL HULL on 08/27/211718 Last Action: Continued Amantadine HCl (Amantadine) 100 Mg Tablet, 100 MG PO BID, (Reported) Entered as Reported by: SUHAIL HULL on 08/27/211728 Last Action: Converted Buprenorphine HCl (Belbuca) 300 Mcg Film, 1 FILM BC Q12H, (Reported) Entered as Reported by: SUHAIL HLUL on 08/27/211728 Last Action: Converted Diclofenac Sodium (Diclofenac Sodium) 100 Gm Gel..gram., 4 GM TOP QID, (Reported) Entered as Reported by: SUHAIL HULL on 08/27/211728 Last Action: Continued Gabapentin (Gabapentin) 600 Mg Tablet, 600 MG PO TID, (Reported) Entered as Reported by: SUHAIL HULL on 08/27/211726 Last Action: Continued Ibuprofen (Ibuprofen) 800 Mg Tablet, 800 MG PO Q8H PRN for PAIN-MILD, (Reported) Entered as Reported by: SUHAIL HULL on 08/27/211726 Last Action: Held Lactulose (Lactulose) 20 Gm/30 Ml Solution, 10 GM PO BID PRN for CONSTIPATION- 1ST LINE Prescribed by: SUHAIL HULL on 08/28/21 111 Methocarbamol (Methocarbamol) 500 Mg Tablet, 2 TAB PO BID, (Reported) Entered as Reported by: SUHAIL HULL on 08/27/211726 Last Action: Continued Montelukast Sodium (Singulair) 10 Mg Tablet, 10 MG PO DAILY PRN for allergies, (Reported) Entered as Reported by: SUHAIL HULL on 08/27/211723 Last Action: Held Oxycodone HCl/Acetaminophen (Oxycodone-Acetaminophen 5-325) 1 Each Tablet, 1 EACH PO BID PRN for PAIN-SEVERE, (Reported) Entered as Reported by: SUHAIL HULL on 08/27/211723 Last Action: Continued Pantoprazole Sodium (Pantoprazole Sodium) 40 Mg Tablet.dr, 40 MG PO DAILY, (Reported) Entered as Reported by: SUHAIL HULL on 08/27/211723 Last Action: Continued Polyethylene Glycol 3350 (Polyethylene Glycol 3350) 17 Gm Powd.pack, 17 GM PO TID PRN for CONSTIPATION-1ST LINE, (Reported) Entered as Reported by: SUHAIL HULL on 08/27/211723 Last Action: Continued Rotigotine (Neupro) 1 Each Patch.td24, 1 PATCH TD DAILY, (Reported) Entered as Reported by: SUHAIL HULL on 08/27/211726 Last Action: Converted Trazodone HCl (Trazodone HCl) 100 Mg Tablet, 50-200 MG PO HS, (Reported) Entered as Reported by: SUHAIL HULL on 08/27/211719 Last Action: Continued Discontinued Medications Alprazolam (Alprazolam) 1 Mg Tablet, 1 MG PO DAILY, (Reported) Entered as Reported by: EMMIE MUNIZ on 01/17/172147 Last Action: Discontinued Alprazolam (Alprazolam) 1 Mg Tablet, 2 MG PO HS, (Reported) Entered as Reported by: KATTY ZAPATA on 09/27/1754 Last Action: Discontinued Amitriptyline HCl (Amitriptyline HCl) 25 Mg Tablet, 50 MG PO HS, (Reported) Entered as Reported by: EMMIE MUNIZ on 01/17/172147 Last Action: Discontinued Dexlansoprazole (Dexilant) 60 Mg Cap.bp, 60 MG PO DAILY, (Reported) Entered as Reported by: TERRANCE ROMERO on 05/25/17934 Last Action: Discontinued Gabapentin (Gabapentin) 300 Mg Capsule, 300 MG PO TID, (Reported) Discontinued Reason: Prescription changed Entered as Reported by: KATTY ZAPATA on 09/09/15 08 Levofloxacin (Levaquin) 750 Mg Tablet, 750 MG PO DAILY Prescribed by: MATY FORD on 09/27/17 0947 Last Action: Discontinued Lidocaine (Lidocaine 5% Patch) 1 Each Adh..patch, 1 PATCH TD DAILY PRN for BREAKTHROUGH PAIN, (Reported) Entered as Reported by: KEITH MCKEON on 09/26/172129 Last Action: Discontinued Oxycodone HCl (Oxycontin) 30 Mg Tab.er.12h, 30 MG PO DAILY, (Reported) Entered as Reported by: KEITH MCKEON on 09/26/172128 Last Action: Discontinued Oxycodone HCl (Oxycontin) 20 Mg Tab.er.12h, 20 MG PO HS, (Reported) Entered as Reported by: KEITH MCKEON on 09/26/172128 Last Action: Discontinued Pantoprazole Sodium (Pantoprazole Sodium) 40 Mg Tablet.dr, 40 MG PO DAILY, (Reported) Entered as Reported by: EMMIE MUNIZ on 01/17/172147 Last Action: Discontinued Zolpidem Tartrate (Zolpidem Tartrate) 10 Mg Tablet, 10 MG PO HS, (Reported) Entered as Reported by: KEITH MCKEON on 09/26/172128 Last Action: Discontinued Past Jmnluji-Wkxull-Qetatz Hx Reviewed Nursing Assessment Reviewed/Agree w Nursing PMH: Yes Family Medical History Significant Family History: No Pertinent Family Hx Family Medial History: Dysphagia 19 MOTHER Family history: Arthritis 19 MOTHER Family history: Diabetes mellitus 19 FATHER Family history: Thyroid disorder 19 MOTHER Physical Exam-General Problems Physical Exam General Appearance: no apparent distress, thin HEENT: PERRL/EOMI, normal ENT inspection Neck: non-tender, supple Respiratory: chest non-tender, no respiratory distress, no accessory muscle use Cardiovascular: regular rate, rhythm, no JVD Gastrointestinal: distended (Abdomen firm and distended); No guarding, No rebound; tenderness Rectal: deferred Back: no CVA tenderness, no vertebral tenderness Extremities: normal inspection, no pedal edema Neurologic/Psychiatric: alert, other (He does communicate through answering yes and no questions appropriately) Skin: normal color, warm/dry Lymphatic: no adenopathy (Head and neck) Assessment/Plan Assessment/Plan Assessment/Plan Abdominal pain - Likely d/t constipation - CT shows large amount of stool in colon - No signs of bowel obstruction - Firm, distended, and tender to palpation Anemia - Hgb 12.6 upon admission - Trend Elevated BUN - Possibly d/t hydration status - Trend Complex neurological history Minimally verbal Plan: Start maintenance IVF Mag citrate and lactulose. CT scan of the abdomen pelvis done with oral contrast which should also help facilitate bowel movement. Patient will make n.p.o. after midnight just in case need to do any type of procedure. We will repeat a KUB in the morning. Monitor with serial exams and follow for signs of bowel obstruction If continues to have significant pain possibility of needing surgical intervention. Supervisory-Addendum Brief Verification & Attestation Participated in pt care: history, MDM, physical Personally performed: exam, history, MDM, supervision of care Care discussed with: Medical Student Procedures: n/a Results interpretation: Verified all documentation Verification and Attestation of Medical Student E/M Service A medical student performed and documented this service in my presence. I reviewed and verified all information documented by the medical student and made modifications to such information, when appropriate. I personally performed the physical exam and medical decision making. Moiz Katz, Aug 27, 2021,20:57 EMEKA CARDOZO Aug 27, 2021 17:11 MOIZ KATZ DO Aug 28, 2021 18:52
[2021-08-27] MEDS: D5 1/2 NS 1000 ML IV SOLUTION 1,000 ML IV SCH (17:13)
[2021-08-27] MEDS ORDERED: ALPR0.254 PO ×2 (17:19)
[2021-08-27] MEDS ORDERED: TRAZ-227 PO (17:20)
[2021-08-27] MEDS ORDERED: PANT40TA52 PO (17:24)
[2021-08-27] MEDS ORDERED: POLY17PO54 PO (17:24)
[2021-08-27] MEDS ORDERED: MONT10TA21 PO (17:24)
[2021-08-27] MEDS ORDERED: OXYC1TAB11 PO (17:24)
[2021-08-27] MEDS ORDERED: METH-731 PO (17:27)
[2021-08-27] MEDS ORDERED: IBUP-1780 PO (17:27)
[2021-08-27] MEDS ORDERED: GBPN600T PO (17:27)
[2021-08-27] MEDS ORDERED: ROTI1PAT11 TD (17:27)
[2021-08-27] MEDS ORDERED: AMAN100T PO (17:29)
[2021-08-27] MEDS ORDERED: DICL100G13 TOP (17:29)
[2021-08-27] MEDS ORDERED: BUPR300F3 BC (17:29)
[2021-08-27] MEDS ORDERED: ENOXAPARIN 40 MG/0.4 ML (LOVENOX) SYR SQ SCH (17:30)
[2021-08-27] MEDS ORDERED: ONDANSETRON 4 MG/2 ML (SDV) Z0FRAN IVP PRN (17:30)
[2021-08-27] MEDS ORDERED: PATIENT MAY USE OWN MEDS, ALL MC SCH (17:30)
[2021-08-27] MEDS: MILK OF MAGNESIA 400 MG/5 ML 30 ML UDC PO SCH ×2 (17:45→20:54)
[2021-08-27] MEDS ORDERED: oxyCODONE/APAP 5/325MG (PERCOCET 5) TABLET PO PRN (17:45)
[2021-08-27] MEDS ORDERED: polyethylene glycoL POWDER 17 GM (MIRALAX) PACK PO PRN (17:45)
--- NOTE | 2021-08-27 18:22 | Diagnostic Imaging Report ---
INDICATION: Pneumonia COMPARISON: 09/26/2017 FINDINGS: Single view of the chest demonstrates subtle infiltrates in the upper lung zones. The lung bases are clear. The heart is normal. There is no pneumothorax or effusion. The osseous structures are stable. IMPRESSION: Subtle infiltrates in the upper lung zones Dictated by: Dictated on workstation # [id number]
[2021-08-27 19:31] VITALS: BP 117/62
[2021-08-27] MEDS: GABAPENTIN 600 MG (NEURONTIN) TAB PO SCH (20:52)
[2021-08-27] MEDS: SENNA W/DOCUSATE (SENOKOT S) TABLET PO SCH (20:52)
[2021-08-27] MEDS: METHOCARBAMOL 500 MG (ROBAXIN) TABLET PO SCH (20:52)
[2021-08-27] MEDS: DICLOFENAC 1% GEL 100 GM (VOLTAREN) TUBE TOP SCH ×2 (20:53→21:00)
[2021-08-27] MEDS: LACTULOSE SYRUP 10GM/15ML (ENULOSE) 30ML UDC PO SCH (20:54)
[2021-08-27] MEDS: BELBUCA 300 MCG SL SCH (20:56)
[2021-08-27] MEDS ORDERED: ENOXAPARIN INJECTION 30 MG/0.3 ML SYR SC SCH (21:00)
[2021-08-27] MEDS ORDERED: traZODone 100 MG (DESYREL) TAB PO SCH (21:00)
[2021-08-27] MEDS ORDERED: NON-FORMULARY MEDICATION 1 EA EA (Amantadine HCl (Amantadine) 100 MG) PO SCH (21:00)
[2021-08-27] MEDS ORDERED: ALPRAZolam 0.25 MG (XANAX) TAB PO SCH (21:00)
[2021-08-27] MEDS ORDERED: AMANTADINE 100 MG (SYMMETREL) CAP PO SCH (21:00)
[2021-08-27] MEDS ORDERED: NICOTINE 14 MG (NICODERM) PATCH TD SCH (22:00)
[2021-08-27 23:29] VITALS: BP 117/64
[2021-08-28] MEDS: D5 1/2 NS 1000 ML IV SOLUTION 1,000 ML IV SCH ×2 (02:38→09:07)
[2021-08-28 04:25] VITALS: BP 111/59
[2021-08-28 06:07] LABS: HEMATOCRIT 36 % (40-54); HEMOGLOBIN 11.7 g/dL (13.3-17.7); MEAN CORPUSCULAR HEMOGLOBIN 30 pg (25-34); MEAN CORPUSCULAR HGB CONC 33 g/dL (32-36); MEAN CORPUSCULAR VOLUME 92 fL (80-99); MEAN PLATELET VOLUME 11.2 fL (9.0-12.2); PLATELET COUNT 195 10^3/uL (130-400); WHITE BLOOD COUNT 5.4 10^3/uL (4.3-11.0)
[2021-08-28 06:20] LABS: CALCIUM 8.9 MG/DL (8.5-10.1)
[2021-08-28 06:25] LABS: CREATININE SERUM 0.77 MG/DL (0.60-1.30)
[2021-08-28] MEDS: BELBUCA 300 MCG SL SCH (06:48)
--- NOTE | 2021-08-28 07:27 | Progress Note - Surgery ---
Subjective Date Seen by a Provider: Aug 28, 2021 Time Seen by a Provider: 06:55 Subjective/Events-last exam Mr. Dos Santos is being followed for constipation and abdominal pain. This morning his ambulatory services representative was at his bedside. He reports he has some abdominal pain. His ambulatory services representative reported that he has had some flatus but has not had a bowel movement yet. He is n.p.o. this morning. A CXR yesterday showed slight infiltrates in his upper lobes but was otherwise unremarkable. Review of Systems Unable to obtain ROS Objective Exam Vital Signs Date Time Temp Pulse Resp B/P (MAP) Pulse Ox O2 Delivery O2 Flow Rate FiO2 08/28/21 04:25 36.8 88 18 111/59 (76) 96 Room Air 08/27/21 23:29 36.7 103 18 117/64 (81) 97 Room Air 08/27/21 21:22 35.6 08/27/21 20:30 96 Room Air 08/27/21 19:31 35.6 90 18 117/62 (80) 96 Room Air 08/27/21 16:00 35.5 78 18 117/75 (89) 97 Room Air 08/27/21 13:54 37.4 86 18 103/69 (80) 98 Room Air 08/27/21 13:31 Room Air I & O 08/28/21 07:00 Intake Total 500 ml Output Total 1050 ml Balance -550 ml Capillary Refill : General Appearance: No Apparent Distress, Chronically ill, Thin HEENT: PERRL/EOMI; No Scleral Icterus (L), No Scleral Icterus (R) Neck: Normal Inspection, Non Tender Respiratory: Chest Non Tender, Lungs Clear, Normal Breath Sounds, No Accessory Muscle Use, No Respiratory Distress Cardiovascular: Regular Rate, Rhythm, No Edema, No Gallop, No Murmur, Normal Peripheral Pulses Peripheral Pulses: 2+ Dorsalis Pedis (R), 2+ Left Dors-Pedis (L), 2+ Radial Pulses (R), 2+ Radial Pulses (L) Gastrointestinal: abnormal bowel sounds (Decreased), distended (Abdomen firm and distended); No guarding, No rebound; tenderness Extremity: Normal Inspection, No Pedal Edema Neurologic/Psychiatric: Alert Skin: Normal Color, Warm/Dry Results Lab Laboratory Tests 08/27/21 16:30: White Blood Count 7.6, Red Blood Count 4.16L, Hemoglobin 12.6L, Hematocrit 38L, Mean Corpuscular Volume 92, Mean Corpuscular Hemoglobin 30, Mean Corpuscular Hemoglobin Concent 33, Red Cell Distribution Width 12.8, Platelet Count 212, Mean Platelet Volume 10.7, Immature Granulocyte % (Auto) 0, Neutrophils (%) (Auto) 56, Lymphocytes (%) (Auto) 30, Monocytes (%) (Auto) 6, Eosinophils (%) (Auto) 7, Basophils (%) (Auto) 1, Neutrophils # (Auto) 4.3, Lymphocytes # (Auto) 2.3, Monocytes # (Auto) 0.5, Eosinophils # (Auto) 0.5H, Basophils # (Auto) 0.1, Immature Granulocyte # (Auto) 0.0, Sodium Level 138, Potassium Level 4.4, Chloride Level 102, Carbon Dioxide Level 26, Anion Gap 10, Blood Urea Nitrogen 20H, Creatinine 0.85, Estimat Glomerular Filtration Rate 114, BUN/Creatinine Ratio 24, Glucose Level 60*L, Calcium Level 9.0, Corrected Calcium 9.0, Total Bilirubin 0.5, Aspartate Amino Transf (AST/SGOT) 15, Alanine Aminotransferase (ALT/SGPT) 13, Alkaline Phosphatase 61, Total Protein 7.3, Albumin 4.0 08/28/21 05:25: White Blood Count 5.4, Red Blood Count 3.91L, Hemoglobin 11.7L, Hematocrit 36L, Mean Corpuscular Volume 92, Mean Corpuscular Hemoglobin 30, Mean Corpuscular Hemoglobin Concent 33, Red Cell Distribution Width 12.8, Platelet Count 195, Mean Platelet Volume 11.2, Sodium Level 139, Potassium Level 4.0, Chloride Level 106, Carbon Dioxide Level 23, Anion Gap 10, Blood Urea Nitrogen 14, Creatinine 0.77, Estimat Glomerular Filtration Rate 118, BUN/Creatinine Ratio 18, Glucose Level 93, Calcium Level 8.9 Radiology CHEST 1 VIEW, AP/PA ONLY INDICATION: Pneumonia COMPARISON: 09/26/2017 FINDINGS: Single view of the chest demonstrates subtle infiltrates in the upper lung zones. The lung bases are clear. The heart is normal. There is no pneumothorax or effusion. The osseous structures are stable. IMPRESSION: Subtle infiltrates in the upper lung zones Assessment/Plan Assessment/Plan Assessment/Plan Assessment: Abdominal pain - Likely d/t constipation - CT shows large amount of stool in colon - No signs of bowel obstruction - Firm, distended, and tender to palpation Anemia - Hgb 12.6 upon admission, 11.7 this morning. - Trend Elevated BUN - Possibly d/t hydration status - Trending down Complex neurological history Minimally verbal Plan: Start maintenance IVF Consider docusate and senna to help resolve constipation Alternatively consider magnesium citrate or possible enema Monitor with serial exams and follow for signs of bowel obstruction Consider disimpaction Consider KUB today to reassess Patient n.p.o. this morning EMEKA CARDOZO Aug 28, 2021 07:27
[2021-08-28 08:00] VITALS: BP 111/74
[2021-08-28] MEDS: METHOCARBAMOL 500 MG (ROBAXIN) TABLET PO SCH (08:52)
[2021-08-28] MEDS: GABAPENTIN 600 MG (NEURONTIN) TAB PO SCH (08:52)
[2021-08-28] MEDS: SENNA W/DOCUSATE (SENOKOT S) TABLET PO SCH (08:52)
[2021-08-28] MEDS: LACTULOSE SYRUP 10GM/15ML (ENULOSE) 30ML UDC PO SCH (08:53)
[2021-08-28] MEDS: MILK OF MAGNESIA 400 MG/5 ML 30 ML UDC PO SCH (08:53)
--- NOTE | 2021-08-28 08:59 | Diagnostic Imaging Report ---
Clinical Indication: Patient with constipation. Exam: KUB x-ray. Comparison: CT scan of abdomen and pelvis with contrast dated 08/27/2021. Findings: There are no focal calcifications overlying the expected regions/ pathways of both kidneys, ureters, and bladder regions. There is a nonobstructed bowel gas pattern. There is no evidence of abdominal free air. There is moderate to large amounts of stool involving the right colon and rectosigmoid region. There is small amount of stool involving the left colon. There are degenerative spurs involving the lumbar spine. Reconstruction plate and screws involving left hip again noted. Impression: 1: There is no intestinal obstruction. 2: There is moderate to large amounts of stool involving the right colon and rectosigmoid region, and a small amount involving the left colon. Dictated by: Dictated on workstation # [id number]
[2021-08-28] MEDS ORDERED: ALPRAZolam 0.25 MG (XANAX) TAB PO SCH (09:00)
[2021-08-28] MEDS ORDERED: ROTIGOTINE TD SCH (09:00)
[2021-08-28] MEDS ORDERED: PANTOPRAZOLE 40 MG (PROTONIX) TAB PO SCH (09:00)
[2021-08-28] MEDS ORDERED: LACT20SO2 PO (11:13)
--- NOTE | 2021-08-28 11:13 | Discharge Summary ---
Discharge Summary Hospital Course Problems/Diagnosis: (1) Abdominal pain Status: Resolved Assessment & Plan: CT without obstruction, successfully passed significant amount of stool with milk of mag and lactulose. Qualifiers: Qualified Codes: R10.84 - Generalized abdominal pain (2) Constipation Assessment & Plan: Discharged with prescription for lactulose. (3) Atypical parkinsonism Status: Chronic Assessment & Plan: Minimally able verbalize clearly at baseline, able to communicate with blinking and head movements. (4) Chronic pain Status: Chronic Assessment & Plan: Resume home medications. (5) GERD (gastroesophageal reflux disease) Status: Chronic (6) Anxiety Status: Chronic Hospital Course Date of Admission: Aug 27, 2021 at 13:31 Admission Diagnosis : Family Physician/Provider: [place] Date of Discharge: 08/28/21 Discharge Diagnosis: See problem list Hospital Course: See problem list Labs and Pending Lab Test: Laboratory Tests 08/27/21 16:30: White Blood Count 7.6, Red Blood Count 4.16L, Hemoglobin 12.6L, Hematocrit 38L, Mean Corpuscular Volume 92, Mean Corpuscular Hemoglobin 30, Mean Corpuscular Hemoglobin Concent 33, Red Cell Distribution Width 12.8, Platelet Count 212, Mean Platelet Volume 10.7, Immature Granulocyte % (Auto) 0, Neutrophils (%) (Auto) 56, Lymphocytes (%) (Auto) 30, Monocytes (%) (Auto) 6, Eosinophils (%) (Auto) 7, Basophils (%) (Auto) 1, Neutrophils # (Auto) 4.3, Lymphocytes # (Auto) 2.3, Monocytes # (Auto) 0.5, Eosinophils # (Auto) 0.5H, Basophils # (Auto) 0.1, Immature Granulocyte # (Auto) 0.0, Sodium Level 138, Potassium Level 4.4, Chloride Level 102, Carbon Dioxide Level 26, Anion Gap 10, Blood Urea Nitrogen 20H, Creatinine 0.85, Estimat Glomerular Filtration Rate 114, BUN/Creatinine Ratio 24, Glucose Level 60*L, Calcium Level 9.0, Corrected Calcium 9.0, Total Bilirubin 0.5, Aspartate Amino Transf (AST/SGOT) 15, Alanine Aminotransferase (ALT/SGPT) 13, Alkaline Phosphatase 61, Total Protein 7.3, Albumin 4.0 08/28/21 05:25: White Blood Count 5.4, Red Blood Count 3.91L, Hemoglobin 11.7L, Hematocrit 36L, Mean Corpuscular Volume 92, Mean Corpuscular Hemoglobin 30, Mean Corpuscular Hemoglobin Concent 33, Red Cell Distribution Width 12.8, Platelet Count 195, Mean Platelet Volume 11.2, Sodium Level 139, Potassium Level 4.0, Chloride Level 106, Carbon Dioxide Level 23, Anion Gap 10, Blood Urea Nitrogen 14, Creatinine 0.77, Estimat Glomerular Filtration Rate 118, BUN/Creatinine Ratio 18, Glucose Level 93, Calcium Level 8.9 Home Meds Active Reported Amantadine (Amantadine HCl) 100 Mg Tablet 100 Mg PO BID Belbuca (Buprenorphine HCl) 300 Mcg Film 1 Film BC Q12H Diclofenac Sodium 100 Gm Gel..gram. 4 Gm TOP QID Ibuprofen 800 Mg Tablet 800 Mg PO Q8H PRN Methocarbamol 500 Mg Tablet 2 Tab PO BID Neupro (Rotigotine) 1 Each Patch.td24 1 Patch TD DAILY Gabapentin 600 Mg Tablet 600 Mg PO TID Pantoprazole Sodium 40 Mg Tablet.dr 40 Mg PO DAILY Polyethylene Glycol 3350 17 Gm Powd.pack 17 Gm PO TID PRN Singulair (Montelukast Sodium) 10 Mg Tablet 10 Mg PO DAILY PRN Oxycodone-Acetaminophen 5-325 (Oxycodone HCl/Acetaminophen) 1 Each Tablet 1 Each PO BID PRN MDD 6 Trazodone HCl 100 Mg Tablet 50-200 Mg PO HS ALPRAZolam 0.25 Mg Tablet 0.25 Mg PO HS ALPRAZolam 0.25 Mg Tablet 0.5 Mg PO DAILY At 3 pm ALPRAZolam 0.25 Mg Tablet 1 Tab PO DAILY Assessment/Pt DC Instructions Follow up with Dr. Gresham within two weeks of discharge. Discharge Diet: No Restrictions Activity as Tolerated: Yes Discharge Physical Examination Allergies: Coded Allergies: Penicillins (Verified Allergy, Mild, 05/26/17) azithromycin (Verified Allergy, Mild, 05/26/17) quetiapine fumarate (Verified Allergy, Unknown, 05/26/17) General Appearance: No Apparent Distress Respiratory: Lungs Clear, Normal Breath Sounds Cardiovascular: Regular Rate, Rhythm, No Murmur Gastrointestinal: Normal Bowel Sounds, Non Tender, Soft Skin: Normal Color, Warm/Dry Neurologic/Psychiatric: Alert, Normal Mood/Affect SUHAIL HULL MD Aug 28, 2021 11:13
[2021-08-28 11:14] VITALS: BP 111/74
[2021-08-28] MEDS ORDERED: MAGNESIUM CITRATE 300 ML BTL PO ONE (12:15)
[2021-08-28] MEDS ORDERED: ALPRAZolam 0.5 MG (XANAX) TAB PO SCH (15:00)
[2021-08-28] MEDS ORDERED: PATCH REMOVAL TP SCH (22:00)
== END 2021-08-28 12:06 | disposition home or self-care (01) ==
LOC: 4TH 13:31
PROVIDERS: ADMIT Family Medicine; ATTEND Family Medicine
DX: K59.00 Constipation, unspecified (principal); G20 Parkinson's disease; G89.29 Other chronic pain; K21.9 Gastro-esophageal reflux disease without esophagitis; R94.4 Abnormal results of kidney function studies; D64.9 Anemia, unspecified; F41.9 Anxiety disorder, unspecified; Z87.891 Personal history of nicotine dependence
CPT/HCPCS: 71045; 74018; 74177; 80048; 80053; 85025; 85027; 96360; 96372; 96374; G0378; G0379; 36415

== ENCOUNTER 2022-04-18 03:31 | Inpatient (IN) | payer MEDICAID ==
[~2022-04-18] VITALS: Ht 198 cm; Wt 68.9 kg
[2022-04-18] VITALS (7 sets, daily range): BP systolic 88–113; BP diastolic 57–67
[~2022-04-18 03:31] MED LIST changes: +ALPR0.254 PO; +AMAN100T PO; +BUPR300F3 BC; +GBPN600T PO; +IBUP-1780 PO; +LACT20SO2 PO; +METH-731 PO; +MONT10TA21 PO; +OXYC1TAB11 PO; +POLY17PO54 PO; +ROTI1PAT11 TD; +TRAZ-227 PO
[2022-04-18] MEDS ORDERED: NS IV 1000 ML 1,000 ML IV SCH (04:00)
[2022-04-18] MEDS ORDERED: CEFEPIME INJECTION 1,000 MG in NS (IVPB) 50 ML IV ONE (04:00)
[2022-04-18] MEDS ORDERED: NOREPINEPHRINE 8 MG/250 ML 250 ML IV ONE (04:01)
[2022-04-18] MEDS ORDERED: PROPOFOL DRIP (ICU) 100 ML IV ONE (04:09)
[2022-04-18 04:11] LABS: BASOPHILS % (AUTO) 1 % (0-10); EOSINOPHILS % (AUTO) 1 % (0-10); HEMATOCRIT 45 % (40-54); HEMOGLOBIN 14.8 g/dL (13.3-17.7); LYMPHOCYTES # (AUTO) 0.7 10^3/uL (1.0-4.0); LYMPHOCYTES % (AUTO) 15 % (12-44); MEAN CORPUSCULAR HEMOGLOBIN 30 pg (25-34); MEAN CORPUSCULAR HGB CONC 33 g/dL (32-36); MEAN CORPUSCULAR VOLUME 91 fL (80-99); MONOCYTES # (AUTO) 0.3 10^3/uL (0.0-1.0); MONOCYTES % (AUTO) 6 % (0-12); NEUTROPHILS # (AUTO) 3.4 10^3/uL (1.8-7.8); NEUTROPHILS % (AUTO) 78 % (42-75); PLATELET COUNT 369 10^3/uL (130-400); WHITE BLOOD COUNT 4.4 10^3/uL (4.3-11.0)
[2022-04-18 04:34] LABS: ALBUMIN 3.6 GM/DL (3.2-4.5); POTASSIUM 3.7 MMOL/L (3.6-5.0)
[2022-04-18 04:35] LABS: CALCIUM 9.2 MG/DL (8.5-10.1)
[2022-04-18 04:36] LABS: INR 1.2 (0.8-1.4); PROTHROMBIN TIME PATIENT 15.5 SEC (12.2-14.7)
[2022-04-18 04:37] LABS: TOTAL PROTEIN 7.8 GM/DL (6.4-8.2)
[2022-04-18] MEDS ORDERED: NOREPINEPHRINE 8 MG/250 ML 250 ML IV STA (04:39)
[2022-04-18] MEDS ORDERED: PROPOFOL DRIP (ICU) 100 ML IV STA (04:39)
[2022-04-18 04:41] LABS: CREATININE SERUM 1.4 MG/DL (0.60-1.30)
[2022-04-18] MEDS ORDERED: DEXTROSE 50% 50 ML (IMS) SYR IV ONE (04:45)
[2022-04-18] MEDS ORDERED: fentaNYL INJ 100 MCG/2 ML AMP IVP PRN (04:45)
--- NOTE | 2022-04-18 04:47 | ED General ---
General Chief Complaint: Altered Mental Status Stated Complaint: VOMITING Source of Information: Family Exam Limitations: Physical Impairments History of Present Illness Date Seen by Provider: Apr 18, 2022 Time Seen by Provider: 03:32 Initial Comments 41-year-old male with mostly unknown history, but is severely physically and mentally disabled, does not ambulate, nonverbal coming in with his brother due to him not acting normal. Brother states he has been coughing, and vomited, believes he could have choked on it. This occurred roughly an hour prior to arrival. He sometimes mumbles, but has been less responsive for him. Has not been wanting to eat or drink as much as usual per the caregiver they gave report to the brother. The brother is unsure of any medicines he is on other than Xanax at nighttime. Further elements of the history and physical were unable to be obtained due to the critical condition of the patient and he is being nonverbal. Per chart review from previous H&P: PAST MEDICAL HISTORY: Tardive dyskinesia, traumatic brain injury x2, nephrolithiasis, gastroesophageal reflux disease, degenerative joint disease lower back, pneumonia in 10/2015 and esophageal stricture. PAST SURGICAL HISTORY: EGDs with dilatations, previous PEG tube placement, laparoscopic cholecystectomy May 2016, ORIF bilateral hips and pelvis February 2020. ALLERGIES: PENICILLIN, ERYTHROMYCIN and SEROQUEL. MEDICATIONS: OxyContin 20 mg b.i.d., oxycodone 10/325 mg q.6 hours p.r.n., Protonix 20 mg daily, gabapentin 600 mg t.i.d., Xanax 0.25 mg t.i.d., prednisone 5 mg daily and Bactrim Wednesday, Wednesday and Wednesday. SOCIAL HISTORY: Previous tobacco smoker, rare for alcohol. FAMILY HISTORY: Mother, diabetes. Allergies and Home Medications Allergies Coded Allergies: Penicillins (Verified Allergy, Mild, 05/26/17) azithromycin (Verified Allergy, Mild, 05/26/17) quetiapine fumarate (Verified Allergy, Unknown, 05/26/17) Patient Home Medication List Home Medication List Reviewed: Yes ALPRAZolam (ALPRAZolam) 0.25 Mg Tablet, 1 TAB PO DAILY, (Reported) Entered as Reported by: SUHAIL HULL on 08/27/21 6199 ALPRAZolam (ALPRAZolam) 0.25 Mg Tablet, 0.5 MG PO DAILY, (Reported) Entered as Reported by: SUHAIL HULL on 08/27/21 171 ALPRAZolam (ALPRAZolam) 0.25 Mg Tablet, 0.25 MG PO HS, (Reported) Entered as Reported by: SUHAIL HULL on 08/27/21 171 Amantadine HCl (Amantadine) 100 Mg Tablet, 100 MG PO BID, (Reported) Entered as Reported by: SUHAIL HULL on 08/27/21 172 Buprenorphine HCl (Belbuca) 300 Mcg Film, 1 FILM BC Q12H, (Reported) Entered as Reported by: SUHAIL HULL on 08/27/21 172 Diclofenac Sodium (Diclofenac Sodium) 100 Gm Gel..gram., 4 GM TOP QID, (Reported) Entered as Reported by: SUHAIL HULL on 08/27/21 172 Gabapentin (Gabapentin) 600 Mg Tablet, 600 MG PO TID, (Reported) Entered as Reported by: SUHAIL HULL on 08/27/21 172 Ibuprofen (Ibuprofen) 800 Mg Tablet, 800 MG PO Q8H PRN for PAIN-MILD, (Reported) Entered as Reported by: SUHAIL HULL on 08/27/21 172 Lactulose (Lactulose) 20 Gm/30 Ml Solution, 10 GM PO BID PRN for CONSTIPATION- 1ST LINE Prescribed by: SUHAIL HULL on 08/28/21 111 Methocarbamol (Methocarbamol) 500 Mg Tablet, 2 TAB PO BID, (Reported) Entered as Reported by: SUHAIL HULL on 08/27/21 172 Montelukast Sodium (Singulair) 10 Mg Tablet, 10 MG PO DAILY PRN for allergies, (Reported) Entered as Reported by: SUHAIL UHLL on 08/27/21 172 Oxycodone HCl/Acetaminophen (Oxycodone-Acetaminophen 5-325) 1 Each Tablet, 1 EACH PO BID PRN for PAIN-SEVERE, (Reported) Entered as Reported by: SUHAIL HULL on 08/27/21 172 Pantoprazole Sodium (Pantoprazole Sodium) 40 Mg Tablet.dr, 40 MG PO DAILY, (Reported) Entered as Reported by: SUHAIL HULL on 4/1723 Polyethylene Glycol 3350 (Polyethylene Glycol 3350) 17 Gm Powd.pack, 17 GM PO TID PRN for CONSTIPATION-1ST LINE, (Reported) Entered as Reported by: SUHAIL HULL on 08/27/211723 Rotigotine (Neupro) 1 Each Patch.td24, 1 PATCH TD DAILY, (Reported) Entered as Reported by: SUHAIL HULL on 08/27/211726 Trazodone HCl (Trazodone HCl) 100 Mg Tablet, 50-200 MG PO HS, (Reported) Entered as Reported by: SUHAIL HULL on 08/27/211719 Review of Systems Review of Systems Constitutional: No fever EENTM: no symptoms reported Respiratory: cough Cardiovascular: no symptoms reported Gastrointestinal: vomiting Genitourinary: no symptoms reported Full review of systems unable to be obtained due to the patient's situation All Other Systems Reviewed Negative Unless Noted: Yes Past Qblvcjy-Xkumkq-Afjpmm Hx Patient Social History Tobacco Use?: No Immunizations Up To Date Tetanus Booster (TDap): Less than 5yrs PED Vaccines UTD: Yes Seasonal Allergies Seasonal Allergies: No Past Medical History Surgeries: Yes (EGD WITH DILATION, PEG TUBE/ REMOVED, FROZEN SHOULDER; KIDNEY STONE REMOVAL) Abdominal, Gallbladder, Orthopedic, Renal Respiratory: Yes (BRONCHITIS/PNEUMONIA; CHRONIC COUGH; SARCOIDOSIS) Pneumonia Currently Using CPAP: No Currently Using BIPAP: No Cardiac: No Neurological: Yes (PARKINSONISM) Seizure Disorder Reproductive Disorders: No Sexually Transmitted Disease: No HIV/AIDS: No Genitourinary: Yes Kidney Stones Gastrointestinal: Yes (ESOPHAGEAL STRICTURES-S/P DILATIONS, ) Gastroesophageal Reflux, Hiatal Hernia, Gall Bladder Disease Musculoskeletal: Yes (RIGHT SHOULDER FROZEN; CHRONIC PAIN ) Degenerate Disk Disease, Chronic Back Pain Endocrine: No HEENT: Yes (POOR DENTITION) Loss of Vision: Denies Hearing Impairment: Denies Cancer: No Psychosocial: Yes Depression Integumentary: No Blood Disorders: No Family Medical History Dysphagia 19 MOTHER Family history: Arthritis 19 MOTHER Family history: Diabetes mellitus 19 FATHER Family history: Thyroid disorder 19 MOTHER No Pertinent Family Hx Physical Exam Vital Signs Vital Signs - First Documented 04/18/22 04/18/22 03:34 04:52 Temp 35.7 Pulse 134 Resp 26 B/P (MAP) 75/45 (55) Pulse Ox 86 O2 Delivery OxyMask O2 Flow Rate 15.00 FiO2 100 Capillary Refill : Height, Weight, BMI Height: 6'6.00" Weight: 166lbs. 8.0oz. 75.753475hk; 17.40 BMI Method:Stated General Appearance: Other (Chronically ill, thin, not responsive) Eyes: Bilateral Eye Other (Right eye deviated slightly to the right which mother states is baseline) HEENT: PERRL/EOMI, Other (Patient with secretions in mouth that he is not clearing) Neck: Full Range of Motion, Supple Respiratory: Chest Non Tender, Crackles, Rhonci Cardiovascular: No Edema, Normal Peripheral Pulses, Tachycardia Gastrointestinal: Normal Bowel Sounds, Non Tender, Soft; No Distended, No Guarding Back: Normal Inspection Extremity: Normal Capillary Refill, Normal Inspection, Normal Range of Motion, Non Tender, No Calf Tenderness, No Pedal Edema Neurologic/Psychiatric: Other (Nonresponsive, moving extremities somewhat, not localizing) Skin: Other (Pale, cool) Lymphatic: No Adenopathy Focused Exam Lactate Level Lactic Acid Level Laboratory Tests Test 04/18/22 04:00 Lactic Acid Level 7.13 MMOL/L (0.50-2.00) *H Procedures/Interventions Date of ETT Placement: Feb 22, 2016 Time of ETT Placement: 005 Intubation Method: orotracheal Tube Size: 7.5 Medications: Rocuronium Positive End Tide CO2: Yes Breath Sounds after Intubation: bilateral-equal (And ketamine) Intubation Complications: apparent aspiration Post Intubation Xray: Yes ET tube in good position Patient was hypoxic prior to intubation and the highest his oxygen got was around 90%, but mostly was in the high 80s despite being on greater than 15 L oxygen mask and nasal cannula. Despite this, tolerated intubation well with little to no further hypoxia Progress/Results/Core Measures Suspected Sepsis SIRS Temperature: Pulse: Respiratory Rate: Laboratory Tests 04/18/22 04:00: White Blood Count 4.4 Blood Pressure / Mean: Laboratory Tests 04/18/22 04:00: Creatinine 1.40H, INR Comment 1.2, Platelet Count 369, Total Bilirubin 1.0 Results/Orders Lab Results Laboratory Tests Test 04/18/22 03:51 04/18/22 04:00 04/18/22 04:40 Range/Units Influenza Type A (RT-PCR) Not Detected Not Detecte Influenza Type B (RT-PCR) Not Detected Not Detecte SARS-CoV-2 RNA (RT-PCR) Not Detected Not Detecte White Blood Count 4.4 4.3-11.0 10^3/uL Red Blood Count 5.00 4.30-5.52 10^6/uL Hemoglobin 14.8 13.3-17.7 g/dL Hematocrit 45 40-54 % Mean Corpuscular Volume 91 80-99 fL Mean Corpuscular Hemoglobin 30 25-34 pg Mean Corpuscular Hemoglobin Concent 33 32-36 g/dL Red Cell Distribution Width 13.2 10.0-14.5 % Platelet Count 369 130-400 10^3/uL Mean Platelet Volume 10.0 9.0-12.2 fL Immature Granulocyte % (Auto) 0 % Neutrophils (%) (Auto) 78 H 42-75 % Lymphocytes (%) (Auto) 15 12-44 % Monocytes (%) (Auto) 6 0-12 % Eosinophils (%) (Auto) 1 0-10 % Basophils (%) (Auto) 1 0-10 % Neutrophils # (Auto) 3.4 1.8-7.8 10^3/uL Lymphocytes # (Auto) 0.7 L 1.0-4.0 10^3/uL Monocytes # (Auto) 0.3 0.0-1.0 10^3/uL Eosinophils # (Auto) 0.0 0.0-0.3 10^3/uL Basophils # (Auto) 0.0 0.0-0.1 10^3/uL Immature Granulocyte # (Auto) 0.0 0.0-0.1 10^3/uL Prothrombin Time 15.5 H 12.2-14.7 SEC INR Comment 1.2 0.8-1.4 Activated Partial Thromboplast Time 28 24-35 SEC Sodium Level 140 135-145 MMOL/L Potassium Level 3.7 3.6-5.0 MMOL/L Chloride Level 105 98-107 MMOL/L Carbon Dioxide Level 14 L 21-32 MMOL/L Anion Gap 21 H 5-14 MMOL/L Blood Urea Nitrogen 23 H 7-18 MG/DL Creatinine 1.40 H 0.60-1.30 MG/DL Estimat Glomerular Filtration Rate 66 BUN/Creatinine Ratio 16 Glucose Level 81 70-105 MG/DL Lactic Acid Level 7.13 *H 0.50-2.00 MMOL/L Calcium Level 9.2 8.5-10.1 MG/DL Corrected Calcium 9.5 8.5-10.1 MG/DL Total Bilirubin 1.0 0.1-1.0 MG/DL Aspartate Amino Transf (AST/SGOT) 28 5-34 U/L Alanine Aminotransferase (ALT/SGPT) 12 0-55 U/L Alkaline Phosphatase 76 40-136 U/L Troponin I 0.145 H <0.028 NG/ML Total Protein 7.8 6.4-8.2 GM/DL Albumin 3.6 3.2-4.5 GM/DL Urine Color YELLOW Urine Clarity CLEAR Urine pH 6.0 5-9 Urine Specific Barney 1.025 H 1.016-1.022 Urine Protein 2+ H NEGATIVE Urine Glucose (UA) NEGATIVE NEGATIVE Urine Ketones 2+ H NEGATIVE Urine Nitrite NEGATIVE NEGATIVE Urine Bilirubin 1+ H NEGATIVE Urine Urobilinogen 1.0 < = 1.0 MG/DL Urine Leukocyte Esterase NEGATIVE NEGATIVE Urine RBC (Auto) 3+ H NEGATIVE Urine RBC RARE /HPF Urine WBC 5-10 H /HPF Urine Squamous Epithelial Cells 2-5 /HPF Urine Crystals NONE /LPF Urine Bacteria FEW H /HPF Urine Casts NONE /LPF Urine Mucus NEGATIVE /LPF Urine Culture Indicated CULTURE PENDING Micro Results Microbiology 04/18/22 Blood Culture - Preliminary, Resulted No growth 04/18/22 Urine Culture - Final, Complete NO GROWTH 04/18/22 Blood Culture - Preliminary, Resulted Probable Coag Negative Staph My Orders Orders - ANA DELONG MD Cbc With Automated Diff (04/18/22 03:46) Comprehensive Metabolic Panel (04/18/22 03:46) Blood Culture (04/18/22 03:46) Urinalysis (04/18/22 03:46) Urine Culture (04/18/22 03:46) Protime With Inr (04/18/22 03:46) Partial Thromboplastin Time (04/18/22 03:46) Chest 1 View, Ap/Pa Only (04/18/22 03:46) Ekg Tracing (04/18/22 03:46) Troponin I [place] (04/18/22 03:46) Vital Signs Adult Sepsis Patie Q15M (04/18/22 03:46) Remove Rings In Anticipation O (04/18/22 03:46) Lactic Acid Analyzer (04/18/22 03:46) Influenza A And B By Pcr (04/18/22 03:46) Ns Iv 1000 Ml (Sodium Chloride 0.9%) (04/18/22 04:00) Cefepime Injection (Maxipime Injection) (04/18/22 04:00) Covid 19 Inhouse Test (04/18/22 03:46) Norepinephrine 8 Mg/250 Ml (Norepinephri (04/18/22 04:01) Propofol Drip (Icu) (Diprivan Drip (Icu) (04/18/22 04:09) Norepinephrine 8 Mg/250 Ml (Norepinephri (04/18/22 04:39) Propofol Drip (Icu) (Diprivan Drip (Icu) (04/18/22 04:39) Fentanyl Inj (Sublimaze Injection) (04/18/22 04:45) Catheter(Urinary) Insert & Ass 03,15 (04/18/22 04:39) D50w (Emergency) Syringe (Dextrose 50% 5 (04/18/22 04:45) Ct Head Wo (04/18/22 04:47) Ns Iv 1000 Ml (Sodium Chloride 0.9%) (04/18/22 05:10) Ed Admission (Communication) (04/18/22 05:29) Ct Chest/Abdomen/Pelvis Wo (04/18/22 05:17) Medications Given in ED Vital Signs/I&O 04/18/22 04/18/22 04/18/22 04/18/22 03:34 03:36 04:06 04:11 Temp 35.7 Pulse 134 116 82 Resp 26 B/P (MAP) 75/45 (55) 90/56 131/68 Pulse Ox 86 86 O2 Delivery OxyMask OxyMask O2 Flow Rate 15.00 15.00 04/18/22 04/18/22 04:52 06:20 Temp 36.0 Pulse 95 106 Resp 23 18 B/P (MAP) 82/62 Pulse Ox 94 100 O2 Delivery Mechanical Ventilator O2 Flow Rate 100.00 FiO2 100 Capillary Refill : Progress Note : Progress Note 41-year-old male with above history presenting for unresponsiveness and hypoxia with hypotension. Glucose 62 on arrival. Patient was hypotensive 60s over 40s, heart rate in the 120s, unresponsive, immediately placed on oxygen mask greater than 15 L with nasal cannula with oxygen only getting up to the 80s. Opted to intubate due to this. He had a significant amount of vomitus in his airway that was there prior to intubation which was suctioned out. Chest x-ray with significant bilateral infiltrates. He was given IV cefepime. Given 2 L of IV fluids and initially started on Levophed, but later was able to turn off the Levophed. Labs significant for lactate greater than 7, NSTEMI likely type II in the setting of his prolonged hypoxia and hypotension, likely mild ADI. I contacted Dr. Moise who will admit him under inpatient status to the intensive care unit. I then called the ICU physician to give signout as well. ECG Initial ECG Impression Date: Apr 18, 2022 Initial ECG Impression Time: 04:34 Initial ECG Rate: 119 Initial ECG Rhythm: S.Tach Comment Narrow QRS, normal axis, no significant ST changes, T wave inversions in the high lateral leads Diagnostic Imaging Diagonstic Imaging: Xray (chest), CT (head/abd/pelvis) Critical Care Note Critical Care Start Time: 03:32 Stop Time: 04:30 Total Time (minutes) 36 Progress Patient was hemodynamically unstable and in respiratory distress. All time billed for critical care was separate from procedures. Departure Impression Primary Impression: Respiratory failure Qualified Codes: J96.01 - Acute respiratory failure with hypoxia Additional Impressions: Lactic acidosis ADI (acute kidney injury) Hypotension Qualified Codes: I95.89 - Other hypotension; E86.1 - Hypovolemia Unresponsiveness Disposition: 09 ADMITTED INPATIENT Condition: Critical Admissions Decision to Admit Reason: Admit from ER (General) Decision to Admit/Date: Apr 18, 2022 Time/Decision to Admit Time: 04:30 Departure-Patient Inst. Referrals: [facility] (PCP/Family) Primary Care Physician ANA DELONG MD Apr 18, 2022 04:47
[2022-04-18] MEDS ORDERED: NS IV 1000 ML 1,000 ML IV STA (05:10)
[2022-04-18 05:15] LABS: CLARITY,URINE CLEAR; COLOR,URINE YELLOW; GLUCOSE, URINE (UA) NEGATIVE (NEGATIVE); KETONES,URINE 2+ (NEGATIVE); LEUKOCYTE ESTERASE ,URINE NEGATIVE (NEGATIVE); NITRITE,URINE NEGATIVE (NEGATIVE); PROTEIN,URINE 2+ (NEGATIVE)
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
[2022-04-18 06:01] LABS: BACTERIA,URINE FEW /HPF; BILIRUBIN,URINE 1+ (NEGATIVE); RBC,URINE RARE /HPF
--- NOTE | 2022-04-18 06:38 | Diagnostic Imaging Report ---
PROCEDURE: CT head without contrast. TECHNIQUE: Multiple contiguous axial images were obtained through the brain without the use of intravenous contrast. Auto Exposure Controls were utilized during the CT exam to meet ALARA standards for radiation dose reduction. INDICATION: Altered mental status COMPARISON: 02/26/2020 FINDINGS: No hyperdense hemorrhage or space-occupying mass. No hydrocephalus or midline shift. The basilar cisterns are normal. [place]-white matter differentiation is well preserved. The mastoid air cells are clear. Partial opacification of the right sphenoid sinus. Other paranasal sinuses are clear. No focal osseous abnormality of the calvarium. IMPRESSION: 1. No acute intracranial process. Dictated by: Dictated on workstation # [id number]
[2022-04-18] MEDS ORDERED: polyethylene glycoL POWDER 17 GM (MIRALAX) PACK PO PRN (06:45)
[2022-04-18] MEDS ORDERED: ONDANSETRON 4 MG (ZOFRAN) ORAL DISSOLVE TAB PO PRN (06:45)
[2022-04-18] MEDS ORDERED: diphenhydrAMINE 25 MG TAB (BENADRYL) PO PRN (06:45)
[2022-04-18] MEDS ORDERED: ONDANSETRON 4 MG/2 ML (SDV) Z0FRAN IV PRN (06:45)
[2022-04-18] MEDS ORDERED: MILK OF MAGNESIA 400 MG/5 ML 30 ML UDC PO PRN (06:45)
[2022-04-18] MEDS ORDERED: BISACODYL 10 MG SUPP (DULCOLAX) PR PRN (06:45)
[2022-04-18] MEDS ORDERED: MELATONIN 3 MG TABLET PO PRN (06:45)
[2022-04-18] MEDS ORDERED: LACTULOSE SYRUP 10GM/15ML (ENULOSE) 30ML UDC PO PRN (06:45)
[2022-04-18] MEDS ORDERED: CALCIUM CARBONATE 500 MG (TUMS) TAB.CHEW PO PRN (06:45)
[2022-04-18] MEDS ORDERED: NS IV 500 ML 500 ML IV PRN (06:45)
[2022-04-18] MEDS ORDERED: ACETAMINOPHEN 325 MG TABLET PO PRN (06:45)
[2022-04-18] MEDS ORDERED: ANTACID SUSP 30 ML UDC (MYLANTA) PO PRN (06:45)
[2022-04-18] MEDS ORDERED: diphenhydrAMINE 50 MG/ML INJ (BENADRYL) IVP PRN (06:45)
[2022-04-18] MEDS ORDERED: ENOXAPARIN 40 MG/0.4 ML (LOVENOX) SYR SC SCH (06:45)
[2022-04-18] MEDS ORDERED: RT-ALBUTEROL/IPRATROPIUM 3 ML (DUONEB) VIAL ONE (06:49)
--- NOTE | 2022-04-18 06:52 | Diagnostic Imaging Report ---
PROCEDURE: CT chest, abdomen, and pelvis without contrast. TECHNIQUE: Multiple contiguous axial images were obtained through the chest, abdomen, and pelvis without the use of intravenous contrast. Auto Exposure Controls were utilized during the CT exam to meet ALARA standards for radiation dose reduction. INDICATION: Vomiting, altered mental status COMPARISON: CT abdomen pelvis from 08/27/2021 FINDINGS: CHEST: Confluent consolidations are present in the left lower lobe. Right lower lobe rounded consolidation is also present. Multifocal groundglass and consolidations are present in the bilateral upper lobes and right middle lobe. No pleural effusion or pneumothorax. No supraclavicular or axillary lymphadenopathy. There are multiple small mediastinal lymph nodes that are likely reactive in nature. Enteric tube has tip terminating in the distal esophagus. No concerning focal osseous lesions. ABDOMEN AND PELVIS: No free intraperitoneal air or fluid. Unenhanced liver, spleen and pancreas are grossly normal. Cholecystectomy. No adrenal mass. No renal or ureteral stones. Additionally, there is no obstructive uropathy. Urinary bladder is decompressed by Tamez catheter. A moderate amount of stool is present throughout the colon. No colitis or diverticulitis. No bowel obstruction. No abdominal or pelvic lymphadenopathy. No concerning focal osseous lesions. Prior ORIF of the left acetabulum/posterior column. IMPRESSION: 1. Extensive and bilateral pulmonary consolidations and groundglass are highly likely due to infection. Less likely possibilities would include pulmonary hemorrhage or atypical inflammatory process. Follow-up CT chest without contrast in 4-6 weeks after appropriate medical management is advised to ensure resolution. 2. No acute abdominal process. 3. Unchanged large volume of colonic stool. Dictated by: Dictated on workstation # [id number]
[2022-04-18] MEDS: NS IV 1000 ML 1,000 ML IV SCH ×3 (07:07→22:53)
[2022-04-18] MEDS: NOREPINEPHRINE 8 MG/250 ML 250 ML IV SCH ×3 (07:16→22:54)
--- NOTE | 2022-04-18 07:16 | Diagnostic Imaging Report ---
CHEST 1 VIEW, AP/PA ONLY Indication: Shortness of breath Comparison: 08/27/2021 Findings: Bilateral perihilar consolidations. No pleural effusion or pneumothorax. Normal heart size. ET tube has tip 8 cm above the fernanda. Enteric tube terminates in the distal esophagus. Impression: 1. ET tube has tip 8 cm above the fernanda. Consider approximately 3 cm of advancement. 2. Enteric tube terminates in the distal esophagus. Consider approximately 10 cm advancement. 3. Bilateral pulmonary consolidations. Please see CT chest report from same day for more complete details. Dictated by: Dictated on workstation # [id number]
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
[2022-04-18] MEDS: ENOXAPARIN INJECTION 30 MG/0.3 ML SYR SC SCH (08:05)
[2022-04-18] MEDS: SENNOSIDES 8.6 MG (SENOKOT) TAB PO SCH ×2 (08:05→20:56)
[2022-04-18] MEDS: PANTOPRAZOLE 40 MG (PROTONIX) VIAL IV SCH (08:05)
[2022-04-18] MEDS: PROPOFOL DRIP (ICU) 100 ML IV SCH ×3 (08:08→22:05)
[2022-04-18] MEDS ORDERED: RT-ALBUTEROL/IPRATROPIUM 3 ML (DUONEB) VIAL INH PRN (08:30)
[2022-04-18] MEDS ORDERED: CEFEPIME INJECTION 2,000 MG in NS (IVPB) 50 ML IV SCH (09:00)
[2022-04-18] MEDS ORDERED: ROCURONIUM 10 MG/ML 5 ML SYRINGE IV ONE (09:35)
[2022-04-18] MEDS ORDERED: fentaNYL INJ 100 MCG/2 ML AMP IV ONE (09:35)
[2022-04-18] MEDS ORDERED: KETAMINE HCL 100 MG/ML 5 ML VIAL IJ ONE (09:35)
[2022-04-18] MEDS: RT-ALBUTEROL/IPRATROPIUM 3 ML (DUONEB) VIAL INH SCH ×4 (09:54→22:31)
[2022-04-18] MEDS: fentaNYL DRIP PRE-MIX 250 ML IV SCH ×2 (10:48→13:00)
[2022-04-18] MEDS: DOCUSATE SODIUM 100 MG (COLACE) CAP PO SCH ×2 (10:49→20:56)
[2022-04-18] MEDS: CEFEPIME 1,000 MG/NS 50 ML IVPB IV SCH ×6 (12:55→23:19)
--- NOTE | 2022-04-18 12:59 | Physical Therapy Progress Note ---
Therapy Progress Note Therapy orders received. Chart review completed. Patient currently acutely ill with ventilation and sedation. Therapy will continue to assess and will begin active PT when patient able to actively participate. BEENA READ PT Apr 18, 2022 12:59
--- NOTE | 2022-04-18 13:18 | Diagnostic Imaging Report ---
CHEST 1 VIEW, AP/PA ONLY Indication: Central line placement Comparison: Earlier same day at 4:35 AM Findings: Left subclavian central venous catheter has tip terminating at the superior cavoatrial junction. There is no pneumothorax. Bilateral pulmonary consolidations are unchanged. Stable ET tube. Enteric tube is not visualized and may have been removed. Impression: 1. Well-positioned left subclavian central venous catheter. 2. No pneumothorax. Dictated by: Dictated on workstation # [id number]
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
[2022-04-18] MEDS ORDERED: PHENYLEPHRINE DRIP 250 ML IV ONE (20:49)
[2022-04-18] MEDS: PHENYLEPHRINE DRIP 250 ML IV SCH (20:53)
[2022-04-19] MEDS: PHENYLEPHRINE DRIP 250 ML IV SCH ×4 (02:12→10:46)
[2022-04-19] MEDS: NOREPINEPHRINE 8 MG/250 ML 250 ML IV SCH ×2 (02:12→07:27)
[2022-04-19 03:13] VITALS: BP 94/59
[2022-04-19] MEDS: RT-ALBUTEROL/IPRATROPIUM 3 ML (DUONEB) VIAL INH SCH ×2 (03:13→06:31)
[2022-04-19 04:16] LABS: ABG BASE EXCESS -9.3 MMOL/L (-2.5-2.5); ABG OXYGEN SATURATION 95 % (94-100); ABG PCO2 55 MMHG (35-45); ABG PO2 71 MMHG (79-93); ABG TCO2 20.1 MMOL/L (21.0-31.0)
[2022-04-19 04:17] LABS: BASOPHILS # (AUTO) 0.1 10^3/uL (0.0-0.1); BASOPHILS % (AUTO) 1 % (0-10); EOSINOPHILS % (AUTO) 0 % (0-10); HEMATOCRIT 37 % (40-54); HEMOGLOBIN 12.3 g/dL (13.3-17.7); LYMPHOCYTES # (AUTO) 0.9 10^3/uL (1.0-4.0); LYMPHOCYTES % (AUTO) 5 % (12-44); MEAN CORPUSCULAR HEMOGLOBIN 30 pg (25-34); MEAN CORPUSCULAR HGB CONC 33 g/dL (32-36); MEAN CORPUSCULAR VOLUME 91 fL (80-99); MEAN PLATELET VOLUME 9.9 fL (9.0-12.2); MONOCYTES # (AUTO) 0.1 10^3/uL (0.0-1.0); MONOCYTES % (AUTO) 1 % (0-12); NEUTROPHILS # (AUTO) 16.5 10^3/uL (1.8-7.8); NEUTROPHILS % (AUTO) 89 % (42-75); PLATELET COUNT 319 10^3/uL (130-400); WHITE BLOOD COUNT 18.6 10^3/uL (4.3-11.0)
[2022-04-19 04:20] LABS: ABG PH 7.14 (7.37-7.43); ALLENS TEST YES-POS
[2022-04-19 04:21] LABS: INSPIRED O2 80%; PATIENT TEMP 36.3; VENTILATOR YES
[2022-04-19 04:35] LABS: ALBUMIN 2.6 GM/DL (3.2-4.5); POTASSIUM 4.1 MMOL/L (3.6-5.0)
[2022-04-19 04:36] LABS: CALCIUM 7.4 MG/DL (8.5-10.1)
[2022-04-19 04:38] LABS: TOTAL PROTEIN 5.7 GM/DL (6.4-8.2)
[2022-04-19 04:39] LABS: BILIRUBIN,TOTAL 0.8 MG/DL (0.1-1.0)
[2022-04-19 04:41] LABS: CREATININE SERUM 1.26 MG/DL (0.60-1.30); PHOSPHORUS 3.8 MG/DL (2.3-4.7)
[2022-04-19 04:44] LABS: MAGNESIUM 1.6 MG/DL (1.6-2.4)
[2022-04-19 05:14] LABS: ATYPICAL LYMPHOCYTES 1 %; BAND NEUTROPHILS 14 %; LYMPHOCYTES % (MANUAL) 2 %; MONOCYTES % (MANUAL) 2 %; MYELOCYTES % 3 %; NEUTROPHILS % (MANUAL) 78 %; TOXIC GRANULATION/VACUOLAZATIO 1+
[2022-04-19] MEDS: CEFEPIME 1,000 MG/NS 50 ML IVPB IV SCH ×4 (05:25→10:46)
[2022-04-19] MEDS ORDERED: POTASSIUM CL 10MEQ/50ML IVPB 50 ML IV SCH (06:00)
[2022-04-19] MEDS ORDERED: KCL 20 MEQ TAB (K-DUR) PO SCH (06:00)
[2022-04-19] MEDS ORDERED: MAGNESIUM 1 GM/100 ML IVPB 100 ML IV SCH (06:00)
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
[2022-04-19] MEDS: PROPOFOL DRIP (ICU) 100 ML IV SCH (06:22)
[2022-04-19 06:31] VITALS: BP 93/60
[2022-04-19] MEDS: NS IV 1000 ML 1,000 ML IV SCH ×2 (07:00→07:28)
[2022-04-19] MEDS: PANTOPRAZOLE 40 MG (PROTONIX) VIAL IV SCH (07:26)
[2022-04-19] MEDS: DOCUSATE SODIUM 100 MG (COLACE) CAP PO SCH (07:27)
[2022-04-19] MEDS: ENOXAPARIN INJECTION 30 MG/0.3 ML SYR SC SCH (07:27)
[2022-04-19] MEDS: SENNOSIDES 8.6 MG (SENOKOT) TAB PO SCH (07:28)
--- NOTE | 2022-04-19 08:37 | Tele-ICU Progress Note ---
Progress Note video rounds completed 41 y/o male with a hx of a TBI and severely debilitated admitted with aspiration pneumonitis. On Cefipime and ventilated. Vent settings: 22/450/70%/5 AB.17/55/71/18 PE: comfortably sedated on propofol HR: 138 BP: 104/60 O2 sat: 94% IMP: respiratory failure with aspiration PNA PLAN: currently not a candidadte for weaning. May need trach and PEG Focused Exam Lactate Level 04/18/22 19:25: Lactic Acid Level 2.67*H 04/18/22 21:15: Lactic Acid Level 2.34*H 04/18/22 23:30: Lactic Acid Level 2.47*H Height, Weight, BMI Height: 6'6.00" Weight: 166lbs. 8.0oz. 75.490318or; 15.94 BMI Method:Stated Labs Laboratory Tests 04/19/22 04:00 Labs Laboratory Tests 04/19/22 04:00 Results Results/Procedures Lab Laboratory Tests 04/18/22 04:00 04/19/22 04:00 Results Results/Procedures Labs Laboratory Tests 04/18/22 04:00 04/19/22 04:00 Patient resulted labs reviewed. Results Labs Labs Laboratory Tests 04/18/22 09:15: Lactic Acid Level 4.12*H 04/18/22 11:22: Glucometer 126H 04/18/22 12:20: Lactic Acid Level 2.84*H 04/18/22 16:57: Lactic Acid Level 3.22*H 04/18/22 18:23: Glucometer 111H 04/18/22 19:25: Lactic Acid Level 2.67*H 04/18/22 21:15: Lactic Acid Level 2.34*H 04/18/22 23:30: Lactic Acid Level 2.47*H 04/18/22 23:31: Glucometer 97 04/19/22 04:00: White Blood Count 18.6H, Red Blood Count 4.09L, Hemoglobin 12.3L, Hematocrit 37L , Mean Corpuscular Volume 91, Mean Corpuscular Hemoglobin 30, Mean Corpuscular Hemoglobin Concent 33, Red Cell Distribution Width 13.9, Platelet Count 319, Mean Platelet Volume 9.9, Immature Granulocyte % (Auto) 5, Neutrophils (%) (Auto) 89H, Lymphocytes (%) (Auto) 5L, Monocytes (%) (Auto) 1, Eosinophils (%) (Auto) 0, Basophils (%) (Auto) 1, Neutrophils # (Auto) 16.5H, Lymphocytes # (Auto) 0.9L, Monocytes # (Auto) 0.1, Eosinophils # (Auto) 0.0, Basophils # (Auto) 0.1, Immature Granulocyte # (Auto) 0.9H, Neutrophils % (Manual) 78, Lymphocytes % (Manual) 2, Monocytes % (Manual) 2, Myelocytes % 3, Band Neutrophils 14, Atypical Lymphocytes 1, Toxic Granulation 1+, Blood Gas Puncture Site LEFT RADIAL, Blood Gas Patient Temperature 36.3, Arterial Blood pH 7.14*L, Arterial Blood Partial Pressure CO2 55H, Arterial Blood Partial Pressure O2 71L, Arterial Blood HCO3 18L, Arterial Blood Total CO2 20.1L, Arterial Blood Oxygen Saturation 95, Arterial Blood Base Excess -9.3L, Eliazar Test YES-POS, Blood Gas Ventilator Setting YES, Blood Gas Inspired Oxygen 80%, Sodium Level 145, Potassium Level 4.1, Chloride Level 118#H, Carbon Dioxide Level 15L, Anion Gap 12, Blood Urea Nitrogen 25H, Creatinine 1.26, Estimat Glomerular Filtration Rate 74, BUN/Creatinine Ratio 20, Glucose Level 92, Calcium Level 7.4L, Corrected Ca lcium 8.5, Phosphorus Level 3.8, Magnesium Level 1.6, Total Bilirubin 0.8, Aspartate Amino Transf (AST/SGOT) 49H, Alanine Aminotransferase (ALT/SGPT) 20, Alkaline Phosphatase 55, Total Protein 5.7L, Albumin 2.6L PACO FLORES MD Apr 19, 2022 08:36
[2022-04-19] MEDS: fentaNYL DRIP PRE-MIX 250 ML IV SCH (08:46)
--- NOTE | 2022-04-19 09:43 | Diagnostic Imaging Report ---
EXAMINATION: Chest 1 view HISTORY: Pneumonia COMPARISON: 04/18/2022 FINDINGS: Endotracheal tube tip terminates 7 cm above the fernanda. Left subclavian catheter tip is in the superior vena cava. Moderate to severe bilateral airspace opacities are similar to prior exam. There is a small effusion. No pneumothorax. Heart size is normal. IMPRESSION: 1. Unchanged moderate severe bilateral airspace opacities consistent with pneumonia. Dictated by: Dictated on workstation # [id number]
[2022-04-19 10:12] LABS: ABG BASE EXCESS -9.9 MMOL/L (-2.5-2.5); ABG OXYGEN SATURATION 95 % (94-100); ABG PCO2 50 MMHG (35-45); ABG PO2 76 MMHG (79-93); ABG TCO2 18.6 MMOL/L (21.0-31.0)
[2022-04-19 10:14] LABS: ABG PH 7.16 (7.37-7.43)
[2022-04-19 10:15] LABS: ALLENS TEST POSITIVE; INSPIRED O2 80%; PATIENT TEMP 37.6; VENTILATOR YES
[2022-04-19 11:11] VITALS: BP 121/69
[2022-04-19] MEDS ORDERED: ARTIFICAL TEARS 0.4 ML UNIT DOSE (REFRESH PLUS) OU PRN (13:00)
[2022-04-19] MEDS ORDERED: LORazepam 1 MG (ATIVAN) TAB SL PRN (13:00)
[2022-04-19] MEDS ORDERED: morphine INJ 4 MG/ML 1 ML (VIAL/SYRINGE) IV PRN (13:00)
[2022-04-19] MEDS ORDERED: LORazepam INJ 2 MG/ML (ATIVAN) VIAL IVP PRN (13:00)
[2022-04-19] MEDS ORDERED: ACETAMINOPHEN 650 MG SUPP (TYLENOL) PR PRN (13:00)
[2022-04-19] MEDS ORDERED: SALIVA SUBSTITUTE 60 ML SPRAY(MOUTHKOTE) MM PRN (13:00)
[2022-04-19] MEDS ORDERED: RT-ALBUTEROL/IPRATROPIUM 3 ML (DUONEB) VIAL INH PRN (13:00)
[2022-04-19] MEDS ORDERED: BISACODYL 10 MG SUPP (DULCOLAX) PR PRN (13:00)
[2022-04-19] MEDS ORDERED: ONDANSETRON 4 MG/2 ML (SDV) Z0FRAN IVP PRN (13:00)
[2022-04-19] MEDS ORDERED: LORazepam ORAL CONCENTRATE 2 MG/ML 30 ML (ATIVAN) PO PRN (13:00)
[2022-04-19] MEDS ORDERED: GLYCOPYRROLATE 0.2 MG/ML (ROBINUL) 2 ML VIAL IV PRN (13:00)
[2022-04-19] MEDS ORDERED: PROMETHAZINE INJ 25 MG/ML (PHENERGAN) AMP IVP PRN (13:00)
[2022-04-19] MEDS ORDERED: morphine INJ 10 MG/ML 1ML (SYR OR VIAL) IV PRN (13:30)
[2022-04-19] MEDS ORDERED: PHENYLEPHRINE DRIP 250 ML IV ONE (13:39)
[2022-04-19] MEDS ORDERED: HYDROmorphone 2 MG/ML VIAL (DILAUDID) IV PRN (13:45)
--- NOTE | 2022-04-19 14:25 | Discharge Summary ---
Discharge Summary Hospital Course Was the Problem List Reviewed?: Yes Problems/Dx: (1) Respiratory failure Status: Acute Qualifiers: Qualified Codes: J96.01 - Acute respiratory failure with hypoxia (2) Unresponsiveness Status: Acute (3) ADI (acute kidney injury) Status: Acute (4) Lactic acidosis Status: Acute Hospital Course Date of Admission: Apr 18, 2022 at 06:20 Admission Diagnosis : Family Physician/Provider: [facility] Date of Discharge: 04/19/22 Discharge Diagnosis: [ ] Hospital Course: Short course after he was admitted and intubated due to aspiration pneumonia. Multi-system organ failure progressed and multiple conversations occurred with DPOA and PCP Dr Gresham and they made decision for withdrawal of care and he . Labs and Pending Lab Test: Laboratory Tests 04/18/22 16:57: Lactic Acid Level 3.22*H 04/18/22 18:23: Glucometer 111H 04/18/22 19:25: Lactic Acid Level 2.67*H 04/18/22 21:15: Lactic Acid Level 2.34*H 04/18/22 23:30: Lactic Acid Level 2.47*H 04/18/22 23:31: Glucometer 97 04/19/22 04:00: White Blood Count 18.6H, Red Blood Count 4.09L, Hemoglobin 12.3L, Hematocrit 37L , Mean Corpuscular Volume 91, Mean Corpuscular Hemoglobin 30, Mean Corpuscular Hemoglobin Concent 33, Red Cell Distribution Width 13.9, Platelet Count 319, Mean Platelet Volume 9.9, Immature Granulocyte % (Auto) 5, Neutrophils (%) (Auto) 89H, Lymphocytes (%) (Auto) 5L, Monocytes (%) (Auto) 1, Eosinophils (%) (Auto) 0, Basophils (%) (Auto) 1, Neutrophils # (Auto) 16.5H, Lymphocytes # (Auto) 0.9L, Monocytes # (Auto) 0.1, Eosinophils # (Auto) 0.0, Basophils # (Auto) 0.1, Immature Granulocyte # (Auto) 0.9H, Neutrophils % (Manual) 78, Lymphocytes % (Manual) 2, Monocytes % (Manual) 2, Myelocytes % 3, Band Neutrophils 14, Atypical Lymphocytes 1, Toxic Granulation 1+, Blood Gas Puncture Site LEFT RADIAL, Blood Gas Patient Temperature 36.3, Arterial Blood pH 7.14*L, Arterial Blood Partial Pressure CO2 55H, Arterial Blood Partial Pressure O2 71L, Arterial Blood HCO3 18L, Arterial Blood Total CO2 20.1L, Arterial Blood Oxygen Saturation 95, Arterial Blood Base Excess -9.3L, Eliazar Test YES-POS, Blood Gas Ventilator Setting YES, Blood Gas Inspired Oxygen 80%, Sodium Level 145, Potassium Level 4.1, Chloride Level 118#H, Carbon Dioxide Level 15L, Anion Gap 12, Blood Urea Nitrogen 25H, Creatinine 1.26, Estimat Glomerular Filtration Rate 74, BUN/Creatinine Ratio 20, Glucose Level 92, Calcium Level 7.4L, Corrected Calcium 8.5, Phosphorus Level 3.8, Magnesium Level 1.6, Total Bilirubin 0.8, Aspartate Amino Transf (AST/SGOT) 49H, Alanine Aminotransferase (ALT/SGPT) 20, Alkaline Phosphatase 55, Total Protein 5.7L, Albumin 2.6L 04/19/22 10:06: Blood Gas Puncture Site RIGHT BRACHIAL, Blood Gas Patient Temperature 37.6, Arterial Blood pH 7.16*L, Arterial Blood Partial Pressure CO2 50H, Arterial Blood Partial Pressure O2 76L, Arterial Blood HCO3 17*L, Arterial Blood Total CO2 18.6L, Arterial Blood Oxygen Saturation 95, Arterial Blood Base Excess -9.9L , Eliazar Test POSITIVE, Blood Gas Ventilator Setting YES, Blood Gas Inspired Oxygen 80% 04/19/22 11:28: Glucometer 74 Microbiology 04/18/22 Gram Stain - Final, Resulted 04/18/22 Sputum Culture - Preliminary, Resulted Probable Strep Pneumoniae 04/18/22 Urine Culture - Final, Complete NO GROWTH 04/18/22 Blood Culture - Preliminary, Resulted Probable Coag Negative Staph Home Meds Active Lactulose 20 Gm/30 Ml Solution 10 Gm PO BID PRN Reported Amantadine (Amantadine HCl) 100 Mg Tablet 100 Mg PO BID Belbuca (Buprenorphine HCl) 300 Mcg Film 1 Film BC Q12H Diclofenac Sodium 100 Gm Gel..gram. 4 Gm TOP QID Methocarbamol 500 Mg Tablet 2 Tab PO BID Neupro (Rotigotine) 1 Each Patch.td24 1 Patch TD DAILY Gabapentin 600 Mg Tablet 600 Mg PO TID Pantoprazole Sodium 40 Mg Tablet.dr 40 Mg PO DAILY Polyethylene Glycol 3350 17 Gm Powd.pack 17 Gm PO TID PRN Singulair (Montelukast Sodium) 10 Mg Tablet 10 Mg PO DAILY PRN Oxycodone-Acetaminophen 5-325 (Oxycodone HCl/Acetaminophen) 1 Each Tablet 1 Each PO BID PRN MDD 6 Trazodone HCl 100 Mg Tablet 50-200 Mg PO HS ALPRAZolam 0.25 Mg Tablet 0.25 Mg PO HS ALPRAZolam 0.25 Mg Tablet 0.5 Mg PO DAILY At 3 pm ALPRAZolam 0.25 Mg Tablet 1 Tab PO DAILY Assessment/Pt Instructions Discharge Planning: <30 minutes discharge planning Discharge Instructions Discharge Diet: No Restrictions Activity as Tolerated: Yes Discharge Physical Examination Vital Signs Vital Signs Date Time Temp Pulse Resp B/P (MAP) Pulse Ox O2 Delivery O2 Flow Rate FiO2 04/19/22 13:00 149 04/19/22 13:00 11 105/61 (76) 90 Mechanical Ventilator 80.00 04/19/22 11:53 37.7 04/19/22 11:11 80 General Appearance: No Apparent Distress, WD/WN, Chronically ill Allergies: Coded Allergies: Penicillins (Verified Allergy, Mild, 05/26/17) azithromycin (Verified Allergy, Mild, 05/26/17) quetiapine fumarate (Verified Allergy, Unknown, 05/26/17) Discharge Summary Date of Admission Apr 18, 2022 at 06:20 Date of Discharge Admission Diagnosis Assessment: Acute respiratory failure requiring intubation Aspiration pneumonitis History of traumatic brain injury Chronic debility and recent severe decline DO NOT RESUSCITATE Plan: Ventilator management by eICU was appreciated Central line by Dr. ALFONSO Antibiotics IV fluids Comfort Measures/ End of Life Care: Comfort Measures Discharge Diagnosis Assessment: Acute respiratory failure requiring intubation Aspiration pneumonitis History of traumatic brain injury Chronic debility and recent severe decline DO NOT RESUSCITATE Plan: Ventilator management by eICU was appreciated Central line by Dr. ALFONSO Antibiotics IV fluids (1) Respiratory failure Status: Acute Qualifiers: Qualified Codes: J96.01 - Acute respiratory failure with hypoxia (2) Unresponsiveness Status: Acute (3) ADI (acute kidney injury) Status: Acute (4) Lactic acidosis Status: Acute CINTHAI HOLLIS DO Apr 19, 2022 14:25
== END 2022-04-19 15:53 | disposition expired | DRG 208 ==
LOC: EDUNIT# 03:31 → ER 03:33 → ICU 06:20
PROVIDERS: ADMIT Internal Medicine; ATTEND Internal Medicine
PROC: 5A1945Z Respiratory Ventilation, 24-96 Consecutive Hours (ICD-10-PCS; principal; 2022-04-18)
PROC: 0BH17EZ Insertion of Endotracheal Airway into Trachea, Via Natural or Artificial Opening (ICD-10-PCS; 2022-04-18)
DX: J69.0 Pneumonitis due to inhalation of food and vomit (principal); I21.A1 Myocardial infarction type 2; J96.01 Acute respiratory failure with hypoxia; N17.9 Acute kidney failure, unspecified; E87.20 Acidosis, unspecified; I95.9 Hypotension, unspecified; G24.01 Drug induced subacute dyskinesia; Z66 Do not resuscitate; Z51.5 Encounter for palliative care; K21.9 Gastro-esophageal reflux disease without esophagitis; G20 Parkinson's disease; G40.909 Epilepsy, unspecified, not intractable, without status epilepticus; F32.A Depression, unspecified; Z20.822 Contact with and (suspected) exposure to COVID-19; Z87.891 Personal history of nicotine dependence; Z87.820 Personal history of traumatic brain injury; Z79.52 Long term (current) use of systemic steroids; Z79.899 Other long term (current) drug therapy; Z88.1 Allergy status to other antibiotic agents; Z88.0 Allergy status to penicillin; Z88.8 Allergy status to other drugs, medicaments and biological substances
CPT/HCPCS: 31500; 36415; 70450; 71045; 71250; 74176; 80053; 81000; 82805; 82947; 83605; 83735; 84100; 84478; 84484; 85007; 85025; 85027; 85610; 85730; 87040; 87070; 87077; 87088; 87185; 87205; 87636; 93005; 94002; 94003; 94640; 94799; 99291; 99292